=== PATIENT | male | born 1955 | race African-American/Black ===

== ENCOUNTER 2018-05-27 20:25 | Emergency (ER) | payer MEDICAID ==
[~2018-05-27] VITALS: Ht 180.3 cm; Wt 74.8 kg
[~2018-05-27 20:25] MED LIST: IBUPROFEN600 MG ORAL; NORCO 5-325 TA1 EACH ORAL; PENICILLIN V P500 MG PO
[2018-05-27 20:40] VITALS: BP 148/90
[2018-05-27] MEDS ORDERED: COLACE100 MG ORAL (20:50)
--- NOTE | 2018-05-27 20:53 | Emergency Room Report ---
History of Present Illness General Chief Complaint: General Complaint Source: Patient Present Illness HPI 62-year-old male presents with him and right inguinal area swelling, feels like it comes and goes and thinks it may be a hernia. He reports it hurts a little bit, but then when he goes waits fine, and it's triggered by heavy lifting or straining bowel movements. Denies nausea, diarrhea, urinary symptoms, such as hematuria or dysuria, fevers, any other complaints. He actually reports that is not bothering him currently. Allergies: Coded Allergies: No Known Allergies (Unverified , 03/17/15) Patient History Past Medical History: see triage record Reviewed Nursing Documentation: PMH: Agreed; PSxH: Agreed Nursing Documentation-PMH Past Medical History: No Stated History Review of Systems All Other Systems: negative except mentioned in HPI Physical Exam Vital Signs Date Time Temp Pulse Resp B/P (MAP) Pulse Ox O2 Delivery O2 Flow Rate FiO2 05/27/18 20:30 98.0 61 20 148/90 95 Room Air 98.1 Sp02 EP Interpretation: reviewed, normal General Appearance: no apparent distress, alert, non-toxic Head: normocephalic Eyes: bilateral eye normal inspection, bilateral eye PERRL, bilateral eye EOMI ENT: normal ENT inspection, hearing grossly normal, normal pharynx, no angioedema, normal voice, moist mucus membranes Neck: normal inspection, full range of motion, supple, supple/symm/no masses Respiratory: chest non-tender, lungs clear, normal breath sounds, chest symmetrical, palpation of chest normal Cardiovascular #1: normal peripheral pulses, regular rate, rhythm Cardiovascular #2: 2+ radial (R), 2+ radial (L) Gastrointestinal: normal inspection, non tender, soft, no mass, no guarding, no rebound Rectal: deferred Genitourinary: normal inspection, no CVA tenderness, penis normal, scrotum normal, other - No inguinal hernia Musculoskeletal: back normal, gait/station normal, normal range of motion, non- tender, no calf tenderness Neurologic: alert, responsive, roller printer III-XII nml as tested, motor strength/tone normal, sensory intact, speech normal Psychiatric: judgement/insight normal, memory normal, mood/affect normal Skin: normal color, no rash, warm/dry, normal turgor Lymphatic: no adenopathy, other - No inguinal lymphadenopathy Medical Decision Making Diagnostic Impression: Primary Impression: Hernia ER Course Patient with history consistent with inguinal hernia, but no hernia on examination today, patient currently asymptomatic as well. Given information on avoiding Valsalva maneuver when lifting, also instructed to eat more fiber and take stool softeners and consider getting a hernia belt. Instructed on how to reduce his own hernia and to return to the ER if severe pain or inability to reduce. Last Vital Signs Date Time Temp Pulse Resp B/P (MAP) Pulse Ox O2 Delivery O2 Flow Rate FiO2 05/27/18 20:30 98.0 61 20 148/90 95 Room Air 98.1 Disposition: HOME, SELF-CARE Condition: Stable Scripts Docusate Sodium* (COLACE*) 100 Mg Capsule 100 MG ORAL DAILY, #30 CAP Prov: RUDY MERRILL M.D 05/27/18 Patient Instructions: Inguinal Hernia, Adult, [id number] RUDY MERRILL M.D May 27, 2018 20:53
[2018-05-27 21:08] VITALS: BP 148/90
== END 2018-05-27 21:15 | disposition home or self-care (01) ==
LOC: EMR 21:08
DX: K40.90 Unilateral inguinal hernia, without obstruction or gangrene, not specified as recurrent (principal)
CPT/HCPCS: 99282

== ENCOUNTER 2020-04-22 14:22 | Inpatient (IN) | payer MEDICAID, MEDICARE ==
[~2020-04-22] VITALS: Ht 180.3 cm; Wt 71.0 kg
[~2020-04-22 14:22] MED LIST changes: +COLACE100 MG ORAL
[2020-04-22 15:00] VITALS: BP 121/76
[2020-04-22 15:12] LABS: APPEARANCE,URINE SLIGHTLY CLOUDY; COLOR,URINE YELLOW
[2020-04-22 15:13] LABS: BILIRUBIN, URINE NEGATIVE (NEGATIVE); GLUCOSE, URINE (UA) NEGATIVE (NEGATIVE); KETONES,URINE NEGATIVE (NEGATIVE); LEUKOCYTE ESTERASE ,URINE NEGATIVE (NEGATIVE); NITRITE,URINE NEGATIVE (NEGATIVE); PROTEIN,URINE 1+ (NEGATIVE); UROBILINOGEN,URINE NORMAL MG/DL (0.0-1.0)
[2020-04-22] MEDS ORDERED: Acetaminophen 500mg (ES) tab ORAL ONE (15:15)
--- NOTE | 2020-04-22 15:31 | Diagnostic Imaging Report ---
EXAM: XR Right Hand Complete, 3 or More Views CLINICAL HISTORY: PAIN TECHNIQUE: Frontal, lateral and oblique views of the right hand. COMPARISON: No relevant prior studies available. FINDINGS: Bones/joints: No acute fracture. Flexion of the second digit at the proximal interphalangeal joint. Degenerative changes. Soft tissues: No radiodense foreign body. IMPRESSION: No acute fracture.
[2020-04-22 15:53] LABS: ANION GAP 11 mmol/L (5-15); BLOOD UREA NITROGEN 23 mg/dL (7-18); CALCIUM 8.9 MG/DL (8.5-10.1); CARBON DIOXIDE 25 MMOL/L (21-32); CHLORIDE 102 MMOL/L (98-107); CREATININE 1.7 MG/DL (0.55-1.30); POTASSIUM 4.5 MMOL/L (3.5-5.1); SODIUM 138 MMOL/L (136-145)
[2020-04-22 15:58] LABS: ALANINE AMINOTRANSFERASE 15 U/L (12-78); ALBUMIN 3.3 G/DL (3.4-5.0); ALBUMIN/GLOBULIN RATIO 0.8 (1.0-2.7); ALKALINE PHOSPHATASE 97 U/L (46-116); ASPARTATE AMINO TRANSFERASE 24 U/L (15-37); BILIRUBIN,TOTAL 0.4 MG/DL (0.2-1.0)
[2020-04-22 15:59] LABS: BASOPHILS % (AUTO) 0.4 % (0.0-2.0); HEMATOCRIT 45.3 % (42.0-52.0); LYMPHOCYTES % (AUTO) 25.5 % (20.0-45.0); MEAN CORPUSCULAR VOLUME 92 FL (80-99); MONOCYTES % (AUTO) 4.8 % (1.0-10.0); NEUTROPHILS % (AUTO) 69.3 % (45.0-75.0); PLATELET COUNT 135 K/UL (150-450); RED BLOOD COUNT 4.93 M/UL (4.70-6.10); RED CELL DISTRIBUTION WIDTH 12.2 % (11.6-14.8); WHITE BLOOD COUNT 8.1 K/UL (4.8-10.8)
--- NOTE | 2020-04-22 17:12 | Diagnostic Imaging Report ---
EXAM: XR Chest, 1 View CLINICAL HISTORY: COUGH TECHNIQUE: Frontal view of the chest. COMPARISON: No relevant prior studies available. FINDINGS: Lungs: Patchy infiltrates, most apparent in the lower lung wright. Pleural space: Unremarkable. No pneumothorax. Heart: Large cardiac silhouette. Mediastinum: Unremarkable. Bones/joints: No acute fracture. Upper abdomen: Calcific foci in the right upper abdomen, largest measures approximately 5.7 cm. IMPRESSION: Patchy infiltrates, most apparent in the lower lung wright.
[2020-04-22] MEDS ORDERED: Azithromycin 500 MG in NS 275 ML IV ONE (17:30)
[2020-04-22] MEDS ORDERED: cefTRIAXone 1 GM in NS 55 ML IVPB ONE (17:30)
--- NOTE | 2020-04-22 18:09 | Emergency Room Report ---
History of Present Illness General Chief Complaint: Generalized Weakness Source: Patient Present Illness HPI 64-year-old male presents the ED for evaluation. States he has been feeling weak for the last week. States he is been having diarrhea. Denies nausea or vomiting. Denies chest pain. Denies fevers or chills. Denies cough. Denies sick contacts or recent travel. No other aggravating relieving factors. Denies any other associated symptoms Allergies: Coded Allergies: No Known Allergies (Unverified , 03/17/15) COVID-19 Screening Contact w/high risk pt: No Experienced COVID-19 symptoms?: No COVID-19 Testing performed POULTRY EVISCERATOR: No Patient History Past Medical History: none Past Surgical History: none Pertinent Family History: none Social History: Denies: smoking, alcohol use, drug use Immunizations: UTD Reviewed Nursing Documentation: PMH: Agreed; PSxH: Agreed Review of Systems All Other Systems: negative except mentioned in HPI Physical Exam Vital Signs Date Time Temp Pulse Resp B/P (MAP) Pulse Ox O2 Delivery O2 Flow Rate FiO2 04/22/20 14:36 99.9 57 16 124/69 (87) 94 Room Air Sp02 EP Interpretation: reviewed, normal General Appearance: no apparent distress, alert, GCS 15, non-toxic Head: normocephalic, atraumatic Eyes: bilateral eye normal inspection, bilateral eye PERRL ENT: hearing grossly normal, normal pharynx, no angioedema, normal voice Neck: full range of motion, supple/symm/no masses Respiratory: chest non-tender, lungs clear, normal breath sounds, speaking full sentences Cardiovascular #1: regular rate, rhythm, no edema Cardiovascular #2: 2+ carotid (R), 2+ carotid (L), 2+ radial (R), 2+ radial (L) , 2+ dorsalis pedis (R), 2+ dorsalis pedis (L) Gastrointestinal: normal bowel sounds, non tender, soft, non-distended, no guarding, no rebound Rectal: deferred Genitourinary: normal inspection, no CVA tenderness Musculoskeletal: back normal, normal range of motion, gait/station normal, non- tender Neurologic: alert, motor strength/tone normal, oriented x3, sensory intact, responsive, speech normal Psychiatric: judgement/insight normal, memory normal, mood/affect normal, no suicidal/homicidal ideation Reflexes: 3+ bicep (R), 3+ bicep (L), 3+ tricep (R), 3+ tricep (L), 3+ knee (R) , 3+ knee (L) Lymphatic: no adenopathy Medical Decision Making Diagnostic Impression: Primary Impression: Episode of generalized weakness Additional Impressions: COVID-19 ARF (acute renal failure) Qualified Codes: N17.9 - Acute kidney failure, unspecified Diarrhea Qualified Codes: R19.7 - Diarrhea, unspecified ER Course Hospital Course 64 yo M presents to ED c/o diarrhea and weakness Differential diagnoses include: Pneumonia, CHF exacerbation, pneumothorax, fluid overload Clinical course Patient placed on stretcher. 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 After initial history and physical, I ordered labs, IV fluids Labs - no leukocytosis, hemoglobin/hematocrit stable, BUN/Cr elevated COVID + Moved to isolation CXR - bilateral patchy opacities ESR CRP d-dimer coags sent and pending EKG - NSR, some PVCS noted Spectrum antibiotics given. Given IV fluids. Case discussed with Dr. Wing and he agreed to the patient to his service for further care and support I feel this is a highly complex case requiring extensive working including EKG/ Rhythm strip, Xray/CT/US, Blood/urine lab work, repeat exams while in ED, and administration of strong opiates/narcotics for pain control, admission to hospital or close patient follow up. Diagnosis - episode of generalized weakness, COVID-19, ARF, diarrhea Patient admitted to floor in serious condition Laboratory Tests Test 04/22/20 14:45 04/22/20 15:00 04/22/20 17:20 Urine Color Yellow Urine Appearance Slightly cloudy Urine pH 5.0 (4.5-8.0) Urine Specific [place] 1.020 (1.005-1.035) Urine Protein 1+ (NEGATIVE) H Urine Glucose (UA) Negative (NEGATIVE) Urine Ketones Negative (NEGATIVE) Urine Blood 1+ (NEGATIVE) H Urine Nitrite Negative (NEGATIVE) Urine Bilirubin Negative (NEGATIVE) Urine Urobilinogen Normal MG/DL (0.0-1.0) Urine Leukocyte Esterase Negative (NEGATIVE) Urine RBC 2-4 /HPF (0 - 0) H Urine WBC 2-4 /HPF (0 - 0) Urine Squamous Epithelial Cells Few /LPF (NONE/OCC) Urine Bacteria Few /HPF (NONE) White Blood Count 8.1 K/UL (4.8-10.8) Red Blood Count 4.93 M/UL (4.70-6.10) Hemoglobin 15.0 G/DL (14.2-18.0) Hematocrit 45.3 % (42.0-52.0) Mean Corpuscular Volume 92 FL (80-99) Mean Corpuscular Hemoglobin 30.4 PG (27.0-31.0) Mean Corpuscular Hemoglobin Concent 33.1 G/DL (32.0-36.0) Red Cell Distribution Width 12.2 % (11.6-14.8) Platelet Count 135 K/UL (150-450) L Mean Platelet Volume 9.9 FL (6.5-10.1) Neutrophils (%) (Auto) 69.3 % (45.0-75.0) Lymphocytes (%) (Auto) 25.5 % (20.0-45.0) Monocytes (%) (Auto) 4.8 % (1.0-10.0) Eosinophils (%) (Auto) 0.0 % (0.0-3.0) Basophils (%) (Auto) 0.4 % (0.0-2.0) Sodium Level 138 MMOL/L (136-145) Potassium Level 4.5 MMOL/L (3.5-5.1) Chloride Level 102 MMOL/L (98-107) Carbon Dioxide Level 25 MMOL/L (21-32) Anion Gap 11 mmol/L (5-15) Blood Urea Nitrogen 23 mg/dL (7-18) H Creatinine 1.7 MG/DL (0.55-1.30) H Estimat Glomerular Filtration Rate 49.1 mL/min (>60) Glucose Level 89 MG/DL (74-106) Calcium Level 8.9 MG/DL (8.5-10.1) Total Bilirubin 0.4 MG/DL (0.2-1.0) Aspartate Amino Transf (AST/SGOT) 24 U/L (15-37) Alanine Aminotransferase (ALT/SGPT) 15 U/L (12-78) Alkaline Phosphatase 97 U/L (46-116) Total Protein 7.2 G/DL (6.4-8.2) Albumin 3.3 G/DL (3.4-5.0) L Globulin 3.9 g/dL Albumin/Globulin Ratio 0.8 (1.0-2.7) L Lipase 238 U/L (73-393) Erythrocyte Sedimentation Rate Pending Prothrombin Time Pending Prothromb Time International Ratio Pending Activated Partial Thromboplast Time Pending D-Dimer Pending Lactic Acid Level Pending C-Reactive Protein, Quantitative Pending EKG Diagnostic Results Rate: normal Rhythm: NSR ST Segments: other - PVCs ASA given to the pt in ED: No Rhythm Strip Diag. Results EP Interpretation: yes Rhythm: NSR, other - PVCs Chest X-Ray Diagnostic Results Chest X-Ray Diagnostic Results : Chest X-Ray Ordered: Yes # of Views/Limited/Complete: 1 View Indication: Other EP Interpretation: Yes Interpretation: no pneumothorax, other - patchy opacities bilateral lungs Impression: Other - pneumonia vs covid Electronically Signed by: Electronically signed by Simeon Marc MD Last Vital Signs Date Time Temp Pulse Resp B/P (MAP) Pulse Ox O2 Delivery O2 Flow Rate FiO2 04/22/20 15:52 100.1 04/22/20 15:00 63 18 121/76 96 Room Air Status: improved Disposition: ADMITTED INPATIENT Condition: Serious Referrals: NOT CHOSEN IPA/,REFERRING (PCP) Simeon Marc MD Apr 22, 2020 18:09
[2020-04-22] MEDS ORDERED: DiphenhydrAMINE 50mg/ml Inj IVP PRN (19:30)
[2020-04-22 20:00] VITALS: BP 132/72
[2020-04-23] VITALS: BP 145/75
[2020-04-23 04:00] VITALS: BP 136/88
[2020-04-23 05:36] LABS: BASOPHILS % (AUTO) 0.3 % (0.0-2.0); HEMATOCRIT 41.2 % (42.0-52.0); HEMOGLOBIN 13.7 G/DL (14.2-18.0); LYMPHOCYTES % (AUTO) 28.9 % (20.0-45.0); MEAN CORPUSCULAR VOLUME 90 FL (80-99); MONOCYTES % (AUTO) 3.8 % (1.0-10.0); PLATELET COUNT 125 K/UL (150-450); RED BLOOD COUNT 4.56 M/UL (4.70-6.10); RED CELL DISTRIBUTION WIDTH 11.4 % (11.6-14.8); WHITE BLOOD COUNT 6.4 K/UL (4.8-10.8)
[2020-04-23 05:48] LABS: ANION GAP 10 mmol/L (5-15); BLOOD UREA NITROGEN 19 mg/dL (7-18); CALCIUM 7.8 MG/DL (8.5-10.1); CARBON DIOXIDE 24 MMOL/L (21-32); CHLORIDE 106 MMOL/L (98-107); CREATININE 1.6 MG/DL (0.55-1.30); POTASSIUM 4.2 MMOL/L (3.5-5.1); SODIUM 140 MMOL/L (136-145)
--- NOTE | 2020-04-23 07:28 | History and Physical ---
Ana Keller EMULSIFICATION OPERATOR 04/23/20 0728: History of Present Illness General Date patient seen: Apr 23, 2020 Time patient seen: 06:45 Reason for Hospitalization: Generalized Weakness Present Illness HPI 64 years old male with no significant past medical history , presented to emergency department for evaluation. Patient reported feeling weak for the last week. Patient reported having diarrhea. No blood in the stool. No nausea /vomiting. No abdominal pain. He denied chest pain or shortness of breath. He denied cough. No fever or chills. No recent sick contacts. reports using cocaine, last time a week ago. Upon evaluation patient had low-grade fever . Pulse oximetry was 94% on the room air . Chest x-ray revealed patchy infiltrate, more apparent in the lower lung wright. Laboratory work-up revealed no leukocytosis ,stable hemoglobin, hematocrit and platelet count . ESR 40. D-dimer 2.06. Chemistry revealed BUN 23, creatinine 1.7. Stable electrolytes. Lactic acid 1.1. Albumin 3.3. Stable LFT and lipase. Urinalysis revealed no evidence of urinary tract infection, +1 protein. Rapid COVID-19 was positive. X-ray of the right hand revealed no acute fracture. In emergency department patient received liter of fluid, received empiric azithromycin and ceftriaxone and admitted for further management. Allergies: Coded Allergies: No Known Allergies (Unverified , 03/17/15) COVID-19 Screening Contact w/high risk pt: No Recent Travel to affected area: No Experienced COVID-19 symptoms?: No Medication History Scheduled Docusate Sodium* (Colace*), 100 MG ORAL DAILY Penicillin V Potassium* (Penvk*), 500 MG PO Q6H Scheduled PRN Hydrocodone Bit/Acetaminophen 5-325* ([place] 5-325*), 1 TAB ORAL Q6H PRN for For Pain Ibuprofen (Motrin), 600 MG ORAL Q8H PRN for For Pain Patient History History Provided By: Patient Healthcare decision maker Resuscitation status Advanced Directive on File Review of Systems Constitutional: Reports: weakness Eye: Reports: no symptoms ENT: Reports: no symptoms Respiratory: Reports: no symptoms Cardiovascular: Reports: no symptoms Gastrointestinal: Reports: see HPI, diarrhea Genitourinary: Reports: no symptoms Musculoskeletal: Reports: no symptoms Skin: Reports: no symptoms Psychiatric: Reports: other - cocaine use , last time a week ago Endocrine: Reports: no symptoms Hematologic/Lymphatic: Reports: no symptoms Physical Exam General Appearance: no apparent distress, alert Lines, tubes and drains: peripheral HEENT: normocephalic, atraumatic, anicteric, mucous membranes moist Neck: supple Respiratory/Chest: chest wall non-tender, lungs clear, no respiratory distress , no accessory muscle use Cardiovascular/Chest: normal rate Abdomen: normal bowel sounds, non tender, soft Extremities: normal range of motion, no calf tenderness, normal capillary refill Skin Exam: normal pigmentation, warm/dry Neurologic: no motor/sensory deficits, alert, responsive Musculoskeletal: normal muscle bulk Last 24 Hour Vital Signs Date Time Temp Pulse Resp B/P (MAP) Pulse Ox O2 Delivery O2 Flow Rate FiO2 04/23/20 05:51 64 20 94 04/23/20 05:45 99.9 04/23/20 04:00 100.8 70 18 136/88 (104) 93 04/23/20 00:00 99.3 75 18 145/75 (98) 96 04/22/20 21:19 Room Air 04/22/20 20:00 98.1 71 18 132/72 (92) 96 04/22/20 18:50 99.9 64 18 126/71 97 Room Air 04/22/20 15:52 100.1 04/22/20 15:00 101.9 63 18 121/76 96 Room Air 04/22/20 15:00 63 16 Room Air 04/22/20 14:36 99.9 57 16 124/69 (87) 94 Room Air Intake and Output 04/22/20 04/23/20 19:00 07:00 Intake Total 1435 ml Output Total 800 ml Balance 635 ml Intake Oral 60 ml IV Total 1375 ml Output Urine Total 800 ml # Voids 1 # Bowel Movements 1 Laboratory Tests Test 04/22/20 14:45 04/22/20 15:00 04/22/20 17:20 04/22/20 20:13 Urine Color Yellow Urine Appearance Slightly cloudy Urine pH 5.0 (4.5-8.0) Urine Specific [place] 1.020 (1.005-1.035) Urine Protein 1+ (NEGATIVE) H Urine Glucose (UA) Negative (NEGATIVE) Urine Ketones Negative (NEGATIVE) Urine Blood 1+ (NEGATIVE) H Urine Nitrite Negative (NEGATIVE) Urine Bilirubin Negative (NEGATIVE) Urine Urobilinogen Normal MG/DL (0.0-1.0) Urine Leukocyte Esterase Negative (NEGATIVE) Urine RBC 2-4 /HPF (0 - 0) H Urine WBC 2-4 /HPF (0 - 0) Urine Squamous Epithelial Cells Few /LPF (NONE/OCC) Urine Bacteria Few /HPF (NONE) White Blood Count 8.1 K/UL (4.8-10.8) Red Blood Count 4.93 M/UL (4.70-6.10) Hemoglobin 15.0 G/DL (14.2-18.0) Hematocrit 45.3 % (42.0-52.0) Mean Corpuscular Volume 92 FL (80-99) Mean Corpuscular Hemoglobin 30.4 PG (27.0-31.0) Mean Corpuscular Hemoglobin Concent 33.1 G/DL (32.0-36.0) Red Cell Distribution Width 12.2 % (11.6-14.8) Platelet Count 135 K/UL (150-450) L Mean Platelet Volume 9.9 FL (6.5-10.1) Neutrophils (%) (Auto) 69.3 % (45.0-75.0) Lymphocytes (%) (Auto) 25.5 % (20.0-45.0) Monocytes (%) (Auto) 4.8 % (1.0-10.0) Eosinophils (%) (Auto) 0.0 % (0.0-3.0) Basophils (%) (Auto) 0.4 % (0.0-2.0) Sodium Level 138 MMOL/L (136-145) Potassium Level 4.5 MMOL/L (3.5-5.1) Chloride Level 102 MMOL/L (98-107) Carbon Dioxide Level 25 MMOL/L (21-32) Anion Gap 11 mmol/L (5-15) Blood Urea Nitrogen 23 mg/dL (7-18) H Creatinine 1.7 MG/DL (0.55-1.30) H Estimat Glomerular Filtration Rate 49.1 mL/min (>60) Glucose Level 89 MG/DL (74-106) Calcium Level 8.9 MG/DL (8.5-10.1) Total Bilirubin 0.4 MG/DL (0.2-1.0) Aspartate Amino Transf (AST/SGOT) 24 U/L (15-37) Alanine Aminotransferase (ALT/SGPT) 15 U/L (12-78) Alkaline Phosphatase 97 U/L (46-116) Total Protein 7.2 G/DL (6.4-8.2) Albumin 3.3 G/DL (3.4-5.0) L Globulin 3.9 g/dL Albumin/Globulin Ratio 0.8 (1.0-2.7) L Lipase 238 U/L (73-393) Erythrocyte Sedimentation Rate 40 MM/HR (0-20) H Prothrombin Time 11.0 SEC (9.30-11.50) Prothromb Time International Ratio 1.0 (0.9-1.1) Activated Partial Thromboplast Time 34 SEC (23-33) H D-Dimer 2.06 mg/L FEU (0.00-0.49) H Lactic Acid Level 1.10 mmol/L (0.4-2.0) Ferritin 499 NG/ML (8-388) H Lactate Dehydrogenase 349 U/L (81-234) H C-Reactive Protein, Quantitative 1.8 mg/dL (0.00-0.90) H Interleukin 6 (IL-6) Pending Thyroid Stimulating Hormone (TSH) 2.421 uiU/mL (0.358-3.740) Calcitonin Level Pending Test 04/22/20 22:32 04/23/20 04:40 Urine Random Sodium 156 mmol/L (20-110) H Urine Creatinine 108.5 MG/DL (30.0-125.0) White Blood Count 6.4 K/UL (4.8-10.8) Red Blood Count 4.56 M/UL (4.70-6.10) L Hemoglobin 13.7 G/DL (14.2-18.0) L Hematocrit 41.2 % (42.0-52.0) L Mean Corpuscular Volume 90 FL (80-99) Mean Corpuscular Hemoglobin 30.1 PG (27.0-31.0) Mean Corpuscular Hemoglobin Concent 33.3 G/DL (32.0-36.0) Red Cell Distribution Width 11.4 % (11.6-14.8) L Platelet Count 125 K/UL (150-450) L Mean Platelet Volume 8.2 FL (6.5-10.1) Neutrophils (%) (Auto) 67.0 % (45.0-75.0) Lymphocytes (%) (Auto) 28.9 % (20.0-45.0) Monocytes (%) (Auto) 3.8 % (1.0-10.0) Eosinophils (%) (Auto) 0.0 % (0.0-3.0) Basophils (%) (Auto) 0.3 % (0.0-2.0) Erythrocyte Sedimentation Rate 42 MM/HR (0-20) H Sodium Level 140 MMOL/L (136-145) Potassium Level 4.2 MMOL/L (3.5-5.1) Chloride Level 106 MMOL/L (98-107) Carbon Dioxide Level 24 MMOL/L (21-32) Anion Gap 10 mmol/L (5-15) Blood Urea Nitrogen 19 mg/dL (7-18) H Creatinine 1.6 MG/DL (0.55-1.30) H Estimat Glomerular Filtration Rate 52.7 mL/min (>60) Glucose Level 93 MG/DL (74-106) Calcium Level 7.8 MG/DL (8.5-10.1) L Microbiology Date/Time Source Procedure Growth Status 04/22/20 15:19 Nasopharynx SARS-CoV-2 RdRp Gene Assay - Final Complete Height (Feet): 5 Height (Inches): 11.00 Weight (Pounds): 165 Medications Current Medications Medications (Trade) Dose Ordered Sig/Dagmar Route PRN Reason Start Time Stop Time Status Last Admin Dose Admin Acetaminophen (Tylenol) 650 mg Q4H PRN ORAL Mild Pain (Pain Scale 1-3) 04/22/20 19:30 05/22/20 19:29 04/23/20 04:51 Diphenhydramine HCl (Benadryl) 25 mg Q6H PRN IVP Itching 04/22/20 19:30 05/22/20 19:29 Docusate Sodium (Colace) 100 mg TWICE A DAY ORAL 04/23/20 09:00 05/23/20 08:59 Enoxaparin Sodium (Lovenox) 40 mg DAILY SUBQ 04/23/20 09:00 07/22/20 08:59 Ondansetron HCl (Zofran) 4 mg Q6H PRN IVP Nausea & Vomiting 04/22/20 19:30 05/22/20 19:29 Sodium Chloride 1,000 ml @ 125 mls/hr Q8H IV 04/22/20 19:30 05/22/20 19:29 04/23/20 03:37 Assessment/Plan Assessment/Plan: ASSESSMENT COVID 19 infection ARF Diarrhea Generalized weakness Cocaine use PLAN OF CARE MS floor isolation supplemetnal O to keep sat >90% Albuterol MDI prn hold on abx for now: no resp symptoms, CXR changes likely due to COVID infection no steroids at this time needed f/ up with CXR CXR changes likely due to COVID infection, monitro for changes and progression ID eval and fup with ID recs re abx empiric abx add vit C and zinc DVT prophylaxis Venous Duplex BLE check IL-6. check inflammatory markers to access the risk of cytokine storm : LDH 349, ferritin 499, CRP 1.8 aggressive IVF renal US monitor renal parameters, lytes, correct lytes as needed avoid nephrotoxics nephro eval pending supportive care stool C dif if diarrhea persist consider Lactobacillus supportive care spiritual counselor on abstinence from illicit street drug case discussed and evaluated by supervising physician Edison Wing MD 04/23/20 1316: History of Present Illness General Reason for Hospitalization: Generalized Weakness Present Illness Allergies: Coded Allergies: No Known Allergies (Unverified , 03/17/15) Medication History Scheduled Docusate Sodium* (Colace*), 100 MG ORAL DAILY Penicillin V Potassium* (Penvk*), 500 MG PO Q6H Scheduled PRN Hydrocodone Bit/Acetaminophen 5-325* ([place] 5-325*), 1 TAB ORAL Q6H PRN for For Pain Ibuprofen (Motrin), 600 MG ORAL Q8H PRN for For Pain Assessment/Plan Assessment/Plan: Patient seen and examined with EMULSIFICATION OPERATOR. Agree with above A&P as it reflects our joint deliberations. COVID19 PNA +/- CAP Diarrhea MALCOM Elevated D-Dimer --> Abx per ID --> IVF --> Renal and GI eval --> Supportive care --> DVT Px: [facility] Ana Keller NP Apr 23, 2020 07:28 Edison Wing MD Apr 23, 2020 13:16
[2020-04-23 08:00] VITALS: BP 142/79
[2020-04-23 08:22] LABS: ALANINE AMINOTRANSFERASE 6 U/L (12-78); ALBUMIN 2.5 G/DL (3.4-5.0); ALKALINE PHOSPHATASE 83 U/L (46-116); ASPARTATE AMINO TRANSFERASE 21 U/L (15-37); BILIRUBIN,DIRECT < 0.1 MG/DL (0.0-0.3); BILIRUBIN,TOTAL 0.3 MG/DL (0.2-1.0); PHOSPHORUS 2.9 MG/DL (2.5-4.9)
[2020-04-23] MEDS: Tamsulosin 0.4mg cap ORAL SCH ×2 (08:23→17:18)
[2020-04-23] MEDS: Enoxaparin 40mg Inj SUBQ SCH (08:31)
[2020-04-23] MEDS ORDERED: Albuterol 90mcg Inhaler 8gm INH PRN (09:00)
[2020-04-23] MEDS ORDERED: Docusate 100mg cap ORAL SCH (09:00)
[2020-04-23] MEDS: Ascorbic Acid 500mg tab ORAL SCH ×2 (10:19→17:18)
[2020-04-23] MEDS: Zinc Sulfate 220mg ORAL SCH (10:19)
[2020-04-23 11:52] VITALS: BP 134/67
--- NOTE | 2020-04-23 11:59 | Consultation ---
Consult Note Consult Note I am asked to evaluate the patient at the request of Dr. Wing for management of renal failure and management of fluid and electrolytes Patient seen in room 415. Interviewed. Examined. Patient presents with generalized weakness. A 64-year old male, presented with diarrhea. Denies chest pain cough chills nausea vomiting abdominal pain After evaluation in emergency room the patient is being admitted for further management Serum creatinine on admission was 1.7 Allergies: No Known Allergies (Unverified , 03/17/15) COVID-19 Screening Contact w/high risk pt: No Experienced COVID-19 symptoms?: No COVID-19 Testing performed GETTER OPERATOR: No PHYSICAL EXAMINATION: VITAL SIGNS: Temperature 98.8, pulse rate 68, respiratory rate 21, blood pressure 149/73, saturation 97% on room air. T-max is 101.9. GENERAL: Alert, responsive. No distress. HEAD AND NECK: Oral exam, no thrush. Eye exam, no icterus. Normocephalic. Neck is supple. No JVD. HEART: Regular. No gallop or murmur. No friction rub. ABDOMEN: Soft. Positive bowel sounds. Nontender. No organomegaly. LUNGS: Few bilateral rhonchi and rales. SKIN: No rash or dermatitis. MUSCULOSKELETAL: No effusions. No septic arthritis. Lower extremities are without cellulitis. No dermatitis. PERIPHERAL VASCULAR: No gangrene or cyanosis. GENITOURINARY: No Meyer. No CVA tenderness. LINE SITES: Without phlebitis. NEUROLOGIC: Intact, nonfocal. Alert and oriented. LABORATORY DATA: Patient had creatinine 1.5. LFTs noted. White count 8.9, hemoglobin 13.4. Sed rate is 42. Ferritin is elevated at 456. UA, leukocyte esterase negative. Cultures are pending. Blood cultures were done. IMAGING STUDIES: Chest x-ray with bilateral infiltrates that have increased. COVID testing by nasopharyngeal molecular testing was positive. It was nucleic acid testing. . Assessment/Plan Impression: Acute renal failure, possible underlying chronic kidney failure Dehydration COVID-19 infection Lower lung patchy infiltrate Diarrhea Cocaine use Mild anemia Suggestions: Stop ibuprofen IV fluids Avoid nephrotoxic's Monitor renal parameters Per consultants / ID HIV screen Patient had 2 previous ER visits here at [facility]. I spent an additional 36 minutes on review of medical records including prior hospital records,consult notes, progress notes, procedures ,imaging labs, hemodynamics, and other clinical documentation. Over 35 min Nelson Dalal MD Apr 23, 2020 11:59
--- NOTE | 2020-04-23 12:56 | Infectious Diseases Prog Note ---
Assessment/Plan Assessment/Plan Full consult dictated: A) 1) covid-19 infection, pna, ? cap 2) pmh noted 3) allergies - nkda P) 1) ceftriaxone, azithromycin 2) monitor for hypoxia 3) f/u on labs and chest x-ray 4) thank you Subjective Allergies: Coded Allergies: No Known Allergies (Unverified , 03/17/15) Objective Last 24 Hour Vital Signs Date Time Temp Pulse Resp B/P (MAP) Pulse Ox O2 Delivery O2 Flow Rate FiO2 04/23/20 11:52 98.0 77 20 134/67 (89) 96 04/23/20 09:00 Room Air 04/23/20 08:00 98.8 62 20 142/79 (100) 96 04/23/20 05:51 64 20 94 04/23/20 05:45 99.9 04/23/20 04:00 100.8 70 18 136/88 (104) 93 04/23/20 00:00 99.3 75 18 145/75 (98) 96 04/22/20 21:19 Room Air 04/22/20 20:00 98.1 71 18 132/72 (92) 96 04/22/20 18:50 99.9 64 18 126/71 97 Room Air 04/22/20 15:52 100.1 04/22/20 15:00 101.9 63 18 121/76 96 Room Air 04/22/20 15:00 63 16 Room Air 04/22/20 14:36 99.9 57 16 124/69 (87) 94 Room Air Height (Feet): 5 Height (Inches): 11.00 Weight (Pounds): 165 Microbiology Date/Time Source Procedure Growth Status 04/22/20 15:19 Nasopharynx SARS-CoV-2 RdRp Gene Assay - Final Complete Laboratory Tests Test 04/22/20 14:45 04/22/20 15:00 04/22/20 17:20 04/22/20 20:13 Urine Color Yellow Urine Appearance Slightly cloudy Urine pH 5.0 (4.5-8.0) Urine Specific Innis 1.020 (1.005-1.035) Urine Protein 1+ (NEGATIVE) H Urine Glucose (UA) Negative (NEGATIVE) Urine Ketones Negative (NEGATIVE) Urine Blood 1+ (NEGATIVE) H Urine Nitrite Negative (NEGATIVE) Urine Bilirubin Negative (NEGATIVE) Urine Urobilinogen Normal MG/DL (0.0-1.0) Urine Leukocyte Esterase Negative (NEGATIVE) Urine RBC 2-4 /HPF (0 - 0) H Urine WBC 2-4 /HPF (0 - 0) Urine Squamous Epithelial Cells Few /LPF (NONE/OCC) Urine Bacteria Few /HPF (NONE) White Blood Count 8.1 K/UL (4.8-10.8) Red Blood Count 4.93 M/UL (4.70-6.10) Hemoglobin 15.0 G/DL (14.2-18.0) Hematocrit 45.3 % (42.0-52.0) Mean Corpuscular Volume 92 FL (80-99) Mean Corpuscular Hemoglobin 30.4 PG (27.0-31.0) Mean Corpuscular Hemoglobin Concent 33.1 G/DL (32.0-36.0) Red Cell Distribution Width 12.2 % (11.6-14.8) Platelet Count 135 K/UL (150-450) L Mean Platelet Volume 9.9 FL (6.5-10.1) Neutrophils (%) (Auto) 69.3 % (45.0-75.0) Lymphocytes (%) (Auto) 25.5 % (20.0-45.0) Monocytes (%) (Auto) 4.8 % (1.0-10.0) Eosinophils (%) (Auto) 0.0 % (0.0-3.0) Basophils (%) (Auto) 0.4 % (0.0-2.0) Sodium Level 138 MMOL/L (136-145) Potassium Level 4.5 MMOL/L (3.5-5.1) Chloride Level 102 MMOL/L (98-107) Carbon Dioxide Level 25 MMOL/L (21-32) Anion Gap 11 mmol/L (5-15) Blood Urea Nitrogen 23 mg/dL (7-18) H Creatinine 1.7 MG/DL (0.55-1.30) H Estimat Glomerular Filtration Rate 49.1 mL/min (>60) Glucose Level 89 MG/DL (74-106) Calcium Level 8.9 MG/DL (8.5-10.1) Total Bilirubin 0.4 MG/DL (0.2-1.0) Aspartate Amino Transf (AST/SGOT) 24 U/L (15-37) Alanine Aminotransferase (ALT/SGPT) 15 U/L (12-78) Alkaline Phosphatase 97 U/L (46-116) Total Protein 7.2 G/DL (6.4-8.2) Albumin 3.3 G/DL (3.4-5.0) L Globulin 3.9 g/dL Albumin/Globulin Ratio 0.8 (1.0-2.7) L Lipase 238 U/L (73-393) Erythrocyte Sedimentation Rate 40 MM/HR (0-20) H Prothrombin Time 11.0 SEC (9.30-11.50) Prothromb Time International Ratio 1.0 (0.9-1.1) Activated Partial Thromboplast Time 34 SEC (23-33) H D-Dimer 2.06 mg/L FEU (0.00-0.49) H Lactic Acid Level 1.10 mmol/L (0.4-2.0) Ferritin 499 NG/ML (8-388) H Lactate Dehydrogenase 349 U/L (81-234) H C-Reactive Protein, Quantitative 1.8 mg/dL (0.00-0.90) H Interleukin 6 (IL-6) Pending Thyroid Stimulating Hormone (TSH) 2.421 uiU/mL (0.358-3.740) Calcitonin Level Pending Test 04/22/20 22:32 04/23/20 04:40 04/23/20 04:44 Urine Random Sodium 156 mmol/L (20-110) H Urine Creatinine 108.5 MG/DL (30.0-125.0) White Blood Count 6.4 K/UL (4.8-10.8) Red Blood Count 4.56 M/UL (4.70-6.10) L Hemoglobin 13.7 G/DL (14.2-18.0) L Hematocrit 41.2 % (42.0-52.0) L Mean Corpuscular Volume 90 FL (80-99) Mean Corpuscular Hemoglobin 30.1 PG (27.0-31.0) Mean Corpuscular Hemoglobin Concent 33.3 G/DL (32.0-36.0) Red Cell Distribution Width 11.4 % (11.6-14.8) L Platelet Count 125 K/UL (150-450) L Mean Platelet Volume 8.2 FL (6.5-10.1) Neutrophils (%) (Auto) 67.0 % (45.0-75.0) Lymphocytes (%) (Auto) 28.9 % (20.0-45.0) Monocytes (%) (Auto) 3.8 % (1.0-10.0) Eosinophils (%) (Auto) 0.0 % (0.0-3.0) Basophils (%) (Auto) 0.3 % (0.0-2.0) Erythrocyte Sedimentation Rate 42 MM/HR (0-20) H Sodium Level 140 MMOL/L (136-145) Potassium Level 4.2 MMOL/L (3.5-5.1) Chloride Level 106 MMOL/L (98-107) Carbon Dioxide Level 24 MMOL/L (21-32) Anion Gap 10 mmol/L (5-15) Blood Urea Nitrogen 19 mg/dL (7-18) H Creatinine 1.6 MG/DL (0.55-1.30) H Estimat Glomerular Filtration Rate 52.7 mL/min (>60) Glucose Level 93 MG/DL (74-106) Calcium Level 7.8 MG/DL (8.5-10.1) L Phosphorus Level 2.9 MG/DL (2.5-4.9) Magnesium Level 2.0 MG/DL (1.8-2.4) Total Bilirubin 0.3 MG/DL (0.2-1.0) Direct Bilirubin < 0.1 MG/DL (0.0-0.3) Aspartate Amino Transf (AST/SGOT) 21 U/L (15-37) Alanine Aminotransferase (ALT/SGPT) 6 U/L (12-78) L Alkaline Phosphatase 83 U/L (46-116) Total Protein 6.3 G/DL (6.4-8.2) L Albumin 2.5 G/DL (3.4-5.0) L HIV (1&2) Antibody Rapid Pending Current Medications Medications (Trade) Dose Ordered Sig/Dagmar Route PRN Reason Start Time Stop Time Status Last Admin Dose Admin Acetaminophen (Tylenol) 650 mg Q4H PRN ORAL Mild Pain (Pain Scale 1-3) 04/22/20 19:30 05/22/20 19:29 04/23/20 04:51 Albuterol Sulfate (Proventil MDI) 2 puff Q4H PRN INH Shortness of Breath 04/23/20 09:00 07/22/20 08:59 Ascorbic Acid (Vitamin C) 500 mg TWICE A DAY ORAL 04/23/20 09:00 05/23/20 08:59 04/23/20 10:19 Azithromycin 250 mg/Dextrose 250 ml @ 250 mls/hr Q24HRS IVPB 04/23/20 13:00 04/28/20 12:59 UNV Ceftriaxone Sodium 1 gm/ Dextrose 50 ml @ 100 mls/hr Q24H IVPB 04/23/20 13:00 04/30/20 12:59 UNV Diphenhydramine HCl (Benadryl) 25 mg Q6H PRN IVP Itching 04/22/20 19:30 05/22/20 19:29 Enoxaparin Sodium (Lovenox) 40 mg DAILY SUBQ 04/23/20 09:00 07/22/20 08:59 04/23/20 08:31 Loperamide HCl (Imodium) 2 mg Q6H PRN NG Diarrhea 04/23/20 09:00 05/23/20 08:59 Ondansetron HCl (Zofran) 4 mg Q6H PRN IVP Nausea & Vomiting 04/22/20 19:30 05/22/20 19:29 Pantoprazole (Protonix) 40 mg EVERY 12 HOURS ORAL 04/23/20 21:00 05/23/20 20:59 UNV Sodium Chloride 1,000 ml @ 125 mls/hr Q8H IV 04/22/20 19:30 05/22/20 19:29 04/23/20 08:25 Tamsulosin HCl (Flomax) 0.4 mg BID ORAL 04/23/20 09:00 05/23/20 08:59 04/23/20 08:23 Zinc Sulfate (Zinc Sulfate) 220 mg DAILY ORAL 04/23/20 09:00 07/22/20 08:59 04/23/20 10:19 Kristie Hugo MD Apr 23, 2020 12:56
[2020-04-23] MEDS: cefTRIAXone 1 GM in D5W 50 ML IVPB SCH (14:24)
[2020-04-23 16:00] VITALS: BP 139/79
--- NOTE | 2020-04-23 16:15 | Consultation ---
DATE OF CONSULTATION: 04/23/2020 CONSULTING PHYSICIAN: Pramod Torres MD. CHIEF COMPLAINT: Diarrhea. HISTORY OF ILLNESS: A 64-year-old male without any significant past medical history, admitted to the hospital with complaint of feeling weak, started having diarrhea since admission. He has been diagnosed with COVID positive pneumonia. GI consultation is requested for evaluation of diarrhea. PAST MEDICAL HISTORY: None. ALLERGIES: None. MEDICATIONS: None. SOCIAL HISTORY: The patient denies any tobacco, alcohol, or drug abuse. FAMILY HISTORY: Noncontributory. REVIEW OF SYSTEMS: A 10-point review of systems was performed and pertinent positives are as in HPI. PHYSICAL EXAMINATION: VITAL SIGNS: T-max 100.8, T current 98.8, pulse is 60, respirations 20, blood pressure 142/79. HEENT: Normocephalic and atraumatic. Sclerae are anicteric. NECK: Supple. No evidence of obvious lymphadenopathy. CARDIOVASCULAR: Regular rate and rhythm. Plus S1, S2. LUNGS: Clear to auscultation bilaterally. ABDOMEN: Positive bowel sounds. Soft and nontender. No rebound. No guarding. No peritoneal sign. EXTREMITIES: No cyanosis, no clubbing, no edema. NEURO: Nonfocal. LABORATORY DATA: White count 6.4, hemoglobin 13.7, hematocrit 41, platelet count is 125. Sodium is 140, potassium 4.2, BUN is 19, creatinine is 1.6. Magnesium and phosphorus normal. ASSESSMENT AND PLAN: This is a 64-year-old male with COVID positive pneumonia and diarrhea, most probably secondary to COVID. PLAN: Conservative management. Monitor electrolytes. Consider adding Imodium if diarrhea persists. Management of COVID positive pneumonia per ID. We will also discontinue Colace, which is in order. Pramod Torres M.D. DR: TYREL JOB#: [id number] CC:
[2020-04-23 20:00] VITALS: BP 151/82
[2020-04-24 04:00] VITALS: BP 134/78
[2020-04-24 07:10] LABS: BASOPHILS % (AUTO) 0.7 % (0.0-2.0); HEMATOCRIT 39.5 % (42.0-52.0); HEMOGLOBIN 13.4 G/DL (14.2-18.0); LYMPHOCYTES % (AUTO) 17.5 % (20.0-45.0); MEAN CORPUSCULAR VOLUME 89 FL (80-99); MONOCYTES % (AUTO) 5.1 % (1.0-10.0); NEUTROPHILS % (AUTO) 76.7 % (45.0-75.0); PLATELET COUNT 143 K/UL (150-450); RED BLOOD COUNT 4.44 M/UL (4.70-6.10); RED CELL DISTRIBUTION WIDTH 11.4 % (11.6-14.8); WHITE BLOOD COUNT 8.9 K/UL (4.8-10.8)
[2020-04-24 08:00] VITALS: BP 138/74
[2020-04-24] MEDS: Enoxaparin 40mg Inj SUBQ SCH (08:00)
[2020-04-24] MEDS: Tamsulosin 0.4mg cap ORAL SCH ×2 (08:05→17:01)
[2020-04-24] MEDS: Ascorbic Acid 500mg tab ORAL SCH ×2 (08:05→17:01)
[2020-04-24 08:06] LABS: ALANINE AMINOTRANSFERASE 11 U/L (12-78); ALBUMIN 2.2 G/DL (3.4-5.0); ALBUMIN/GLOBULIN RATIO 0.6 (1.0-2.7); ALKALINE PHOSPHATASE 81 U/L (46-116); ANION GAP 12 mmol/L (5-15); ASPARTATE AMINO TRANSFERASE 14 U/L (15-37); BILIRUBIN,TOTAL 0.4 MG/DL (0.2-1.0); BLOOD UREA NITROGEN 16 mg/dL (7-18); CARBON DIOXIDE 22 MMOL/L (21-32); CHLORIDE 105 MMOL/L (98-107); CHOLESTEROL 112 MG/DL (< 200); CREATINE KINASE 48 U/L (26-308); CREATININE 1.5 MG/DL (0.55-1.30); FERRITIN 456 NG/ML (8-388); GAMMA GLUTAMYL TRANSPEPTIDASE 8 U/L (5-85); HDL CHOLESTEROL 31 MG/DL (40-60); LACTATE DEHYDROGENASE 252 U/L (81-234); PHOSPHORUS 3.2 MG/DL (2.5-4.9); POTASSIUM 3.9 MMOL/L (3.5-5.1); SODIUM 139 MMOL/L (136-145); TRIGLYCERIDES 131 MG/DL (30-150)
[2020-04-24] MEDS: Zinc Sulfate 220mg ORAL SCH (08:06)
[2020-04-24 08:40] LABS: % IRON SATURATION 14 % (15-50); IRON 17 ug/dL (50-175); TOTAL IRON BINDING CAPACITY 124 ug/dL (250-450)
--- NOTE | 2020-04-24 10:29 | Pulmonology Progress Note ---
Ana Keller COMMISSIONING SPECIALIST 04/24/20 1029: Subjective Allergies: Coded Allergies: No Known Allergies (Unverified , 03/17/15) Subjective remains afebrile no resp distress pulse ox stable on RA in isolation room creat down to 1.5 denies CP, SOB diarrhea improved Objective Last 24 Hour Vital Signs Date Time Temp Pulse Resp B/P (MAP) Pulse Ox O2 Delivery O2 Flow Rate FiO2 04/24/20 09:00 Room Air 04/24/20 08:00 99.0 62 21 138/74 (95) 95 04/24/20 04:00 99.9 76 20 134/78 (96) 96 04/23/20 21:13 Room Air 04/23/20 20:00 99.8 72 20 151/82 (105) 94 04/23/20 16:00 98.0 74 20 139/79 (99) 96 04/23/20 11:52 98.0 77 20 134/67 (89) 96 Intake and Output 04/23/20 04/24/20 19:00 07:00 Intake Total 1830 ml 2175 ml Output Total 500 ml 1600 ml Balance 1330 ml 575 ml Intake Oral 480 ml 800 ml IV Total 1350 ml 1375 ml Output Urine Total 500 ml 1600 ml # Voids 2 Objective General Appearance: no apparent distress, alert Lines, tubes and drains: peripheral HEENT: normocephalic, atraumatic, anicteric, mucous membranes moist Neck: supple Respiratory/Chest: chest wall non-tender, lungs clear, no respiratory distress , no accessory muscle use Cardiovascular/Chest: normal rate Abdomen: normal bowel sounds, non tender, soft Extremities: normal range of motion, no calf tenderness, normal capillary refill Skin Exam: normal pigmentation, warm/dry Neurologic: no motor/sensory deficits, alert, responsive Musculoskeletal: normal muscle bulk Microbiology Date/Time Source Procedure Growth Status 04/22/20 17:20 Blood Blood Culture - Preliminary NO GROWTH AFTER 24 HOURS Resulted 04/22/20 17:05 Blood Blood Culture - Preliminary NO GROWTH AFTER 24 HOURS Resulted 04/22/20 15:19 Nasopharynx SARS-CoV-2 RdRp Gene Assay - Final Complete Laboratory Tests 04/23/20 15:30: Urine Opiates Screen Negative, Urine Barbiturates Screen Negative, Phencyclidine (PCP) Screen Negative, Urine Amphetamines Screen Negative, Urine Benzodiazepines Screen Negative, Urine Cocaine Screen PositiveH, Urine Marijuana (THC) Screen Negative 04/24/20 06:00: White Blood Count 8.9, Red Blood Count 4.44L, Hemoglobin 13.4L, Hematocrit 39.5L , Mean Corpuscular Volume 89, Mean Corpuscular Hemoglobin 30.2, Mean Corpuscular Hemoglobin Concent 33.9, Red Cell Distribution Width 11.4L, Platelet Count 143L, Mean Platelet Volume 7.6, Neutrophils (%) (Auto) 76.7H, Lymphocytes (%) (Auto) 17.5L, Monocytes (%) (Auto) 5.1, Eosinophils (%) (Auto) 0.0, Basophils (%) (Auto) 0.7, Sodium Level 139, Potassium Level 3.9, Chloride Level 105, Carbon Dioxide Level 22, Anion Gap 12, Blood Urea Nitrogen 16, Creatinine 1.5H, Estimat Glomerular Filtration Rate 56.7, Glucose Level 92, Hemoglobin A1c 5.3, Lactic Acid Level 0.70, Uric Acid 3.5, Calcium Level 8.0L, Phosphorus Level 3.2, Magnesium Level 2.0, Iron Level 17L, Total Iron Binding Capacity 124L, Percent Iron Saturation 14L, Unsaturated Iron Binding 107L, Ferritin 456H, Total Bilirubin 0.4, Gamma Glutamyl Transpeptidase 8, Aspartate Amino Transf (AST/SGOT) 14L, Alanine Aminotransferase (ALT/SGPT) 11L, Alkaline Phosphatase 81, Lactate Dehydrogenase 252H, Total Creatine Kinase 48, C- Reactive Protein, Quantitative 3.8H, Pro-B-Type Natriuretic Peptide 953H, Total Protein 6.0L, Albumin 2.2L, Globulin 3.8, Albumin/Globulin Ratio 0.6L, Triglycerides Level 131, Cholesterol Level 112, LDL Cholesterol 53, HDL Cholesterol 31L, Cholesterol/HDL Ratio 3.6, Folate 17.3, Thyroid Stimulating Hormone (TSH) 2.337 Current Medications Medications (Trade) Dose Ordered Sig/Dagmar Route PRN Reason Start Time Stop Time Status Last Admin Dose Admin Acetaminophen (Tylenol) 650 mg Q4H PRN ORAL Mild Pain (Pain Scale 1-3) 04/22/20 19:30 05/22/20 19:29 04/23/20 04:51 Albuterol Sulfate (Proventil MDI) 2 puff Q4H PRN INH Shortness of Breath 04/23/20 09:00 07/22/20 08:59 Ascorbic Acid (Vitamin C) 500 mg TWICE A DAY ORAL 04/23/20 09:00 05/23/20 08:59 04/24/20 08:05 Azithromycin 250 mg/Dextrose 250 ml @ 250 mls/hr Q24HRS IV 04/23/20 16:00 04/28/20 15:59 04/23/20 16:05 Ceftriaxone Sodium 1 gm/ Dextrose 50 ml @ 100 mls/hr Q24H IVPB 04/23/20 14:00 04/30/20 13:59 04/23/20 14:24 Diphenhydramine HCl (Benadryl) 25 mg Q6H PRN IVP Itching 04/22/20 19:30 05/22/20 19:29 Enoxaparin Sodium (Lovenox) 40 mg DAILY SUBQ 04/23/20 09:00 07/22/20 08:59 04/23/20 08:31 Loperamide HCl (Imodium) 2 mg Q6H PRN NG Diarrhea 04/23/20 09:00 05/23/20 08:59 Ondansetron HCl (Zofran) 4 mg Q6H PRN IVP Nausea & Vomiting 04/22/20 19:30 05/22/20 19:29 Pantoprazole (Protonix) 40 mg EVERY 12 HOURS ORAL 04/23/20 21:00 05/23/20 20:59 04/24/20 08:05 Sodium Chloride 1,000 ml @ 125 mls/hr Q8H IV 04/22/20 19:30 05/22/20 19:29 04/24/20 05:15 Tamsulosin HCl (Flomax) 0.4 mg BID ORAL 04/23/20 09:00 05/23/20 08:59 04/24/20 08:05 Zinc Sulfate (Zinc Sulfate) 220 mg DAILY ORAL 04/23/20 09:00 07/22/20 08:59 04/24/20 08:06 Assessment/Plan Assessment/Plan ASSESSMENT COVID 19 PNA ARF possibly on CKD Diarrhea Generalized weakness Cocaine abuse PLAN OF CARE MS floor isolation supplemetnal O to keep sat >90% Albuterol MDI prn started on abx per ID recs-> Ceftriaxone and Azithromycin no steroids at this time needed CXR changes likely due to COVID infection, monitor for changes and progression fup with CXR vit C and zinc added DVT prophylaxis Venous Duplex BLE check IL-6 pending inflammatory markers not quite impressive to show risk for cytokine storm: ferritin 456, CRP 3.8, LDH 252, D dimer 2.06 IVF renal US monitor renal parameters, lytes, correct lytes as needed avoid nephrotoxics nephro follows creat down to 1.5 diarrhea improved with Imodium stool C dif if diarrhea persist consider Lactobacillus HIV nonreactive urine tox + 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 Agree with above A&P as it reflects our joint deliberations. Problem List: COVID19 PNA +/- CAP Diarrhea MALCOM Elevated D-Dimer Plan: * Monitor oxygenation closely, currently room air * hold remdesivir/decadron while tolerating room air * trend CRP and ferritin daily * abx per ID * IVF, monitor renal function * DVT PPx: LMWH Ana Keller NP Apr 24, 2020 10:29 Rasta Sutherland MD Apr 24, 2020 11:08
--- NOTE | 2020-04-24 10:39 | General Progress Note ---
Assessment/Plan Problem List: (1) Cocaine abuse ICD Codes: F14.10 - Cocaine abuse, uncomplicated SNOMED: 27376200 (2) COVID-19 ICD Codes: U07.1 - COVID-19 SNOMED: 060371111 (3) Diarrhea ICD Codes: R19.7 - Diarrhea, unspecified SNOMED: 56409392 Qualifiers: Qualified Codes: R19.7 - Diarrhea, unspecified Assessment/Plan: pulm care good response to imodium fu labs Subjective ROS Limited/Unobtainable: Yes Allergies: Coded Allergies: No Known Allergies (Unverified , 03/17/15) Objective Last 24 Hour Vital Signs Date Time Temp Pulse Resp B/P (MAP) Pulse Ox O2 Delivery O2 Flow Rate FiO2 04/24/20 09:00 Room Air 04/24/20 08:00 99.0 62 21 138/74 (95) 95 04/24/20 04:00 99.9 76 20 134/78 (96) 96 04/23/20 21:13 Room Air 04/23/20 20:00 99.8 72 20 151/82 (105) 94 04/23/20 16:00 98.0 74 20 139/79 (99) 96 04/23/20 11:52 98.0 77 20 134/67 (89) 96 Intake and Output 04/23/20 04/24/20 19:00 07:00 Intake Total 1830 ml 2175 ml Output Total 500 ml 1600 ml Balance 1330 ml 575 ml Intake Oral 480 ml 800 ml IV Total 1350 ml 1375 ml Output Urine Total 500 ml 1600 ml # Voids 2 Laboratory Tests 04/23/20 15:30: Urine Opiates Screen Negative, Urine Barbiturates Screen Negative, Phencyclidine (PCP) Screen Negative, Urine Amphetamines Screen Negative, Urine Benzodiazepines Screen Negative, Urine Cocaine Screen PositiveH, Urine Marijuana (THC) Screen Negative 04/24/20 06:00: White Blood Count 8.9, Red Blood Count 4.44L, Hemoglobin 13.4L, Hematocrit 39.5L , Mean Corpuscular Volume 89, Mean Corpuscular Hemoglobin 30.2, Mean Corpuscular Hemoglobin Concent 33.9, Red Cell Distribution Width 11.4L, Platelet Count 143L, Mean Platelet Volume 7.6, Neutrophils (%) (Auto) 76.7H, Lymphocytes (%) (Auto) 17.5L, Monocytes (%) (Auto) 5.1, Eosinophils (%) (Auto) 0.0, Basophils (%) (Auto) 0.7, Sodium Level 139, Potassium Level 3.9, Chloride Level 105, Carbon Dioxide Level 22, Anion Gap 12, Blood Urea Nitrogen 16, Creatinine 1.5H, Estimat Glomerular Filtration Rate 56.7, Glucose Level 92, Hemoglobin A1c 5.3, Lactic Acid Level 0.70, Uric Acid 3.5, Calcium Level 8.0L, Phosphorus Level 3.2, Magnesium Level 2.0, Iron Level 17L, Total Iron Binding Capacity 124L, Percent Iron Saturation 14L, Unsaturated Iron Binding 107L, Ferritin 456H, Total Bilirubin 0.4, Gamma Glutamyl Transpeptidase 8, Aspartate Amino Transf (AST/SGOT) 14L, Alanine Aminotransferase (ALT/SGPT) 11L, Alkaline Phosphatase 81, Lactate Dehydrogenase 252H, Total Creatine Kinase 48, C- Reactive Protein, Quantitative 3.8H, Pro-B-Type Natriuretic Peptide 953H, Total Protein 6.0L, Albumin 2.2L, Globulin 3.8, Albumin/Globulin Ratio 0.6L, Triglycerides Level 131, Cholesterol Level 112, LDL Cholesterol 53, HDL Cholesterol 31L, Cholesterol/HDL Ratio 3.6, Folate 17.3, Thyroid Stimulating Hormone (TSH) 2.337 Height (Feet): 5 Height (Inches): 11.00 Weight (Pounds): 165 General Appearance: alert EENT: normal ENT inspection Neck: supple Cardiovascular: normal rate Respiratory/Chest: decreased breath sounds Abdomen: normal bowel sounds, non tender, soft Extremities: non-tender Pramod Torres MD Apr 24, 2020 10:39
--- NOTE | 2020-04-24 11:57 | Diagnostic Imaging Report ---
Indication: Shortness of breath Technique: One view of the chest Comparison: 04/22/2020 Findings: Bilateral mid and lower lung infiltrates appear somewhat more conspicuous on the current study, probably slightly increased. The heart size is normal. Impression: Increased bilateral infiltrates, over 2 days
[2020-04-24 12:00] VITALS: BP 149/73
--- NOTE | 2020-04-24 12:46 | Consultation ---
History of Present Illness General Date patient seen: Apr 24, 2020 Reason for Hospitalization: Generalized Weakness Present Illness HPI 64 year old male presented to [facility] for evaluation of weakness and diarrhea. c/o loose diarrhea for few days. no n/v/f/c. COVID + in ED. hx hernia. surgery called toe valuate and assist with care. patient seen, chart reviewed, patient examined. states hernia asymptomatic. feels better now. labs noted. imaging reviewed. Allergies: Coded Allergies: No Known Allergies (Unverified , 03/17/15) COVID-19 Screening Contact w/high risk pt: No Recent Travel to affected area: No Experienced COVID-19 symptoms?: No Medication History Scheduled Docusate Sodium* (Colace*), 100 MG ORAL DAILY Penicillin V Potassium* (Penvk*), 500 MG PO Q6H Scheduled PRN Hydrocodone Bit/Acetaminophen 5-325* ([place] 5-325*), 1 TAB ORAL Q6H PRN for For Pain Ibuprofen (Motrin), 600 MG ORAL Q8H PRN for For Pain Patient History History Provided By: Patient, Medical Record, PMD Healthcare decision maker Resuscitation status Advanced Directive on File Past Medical/Surgical History Past Medical/Surgical History: (1) Dental abscess (2) Dental abscess (3) Hernia (4) ARF (acute renal failure) (5) Episode of generalized weakness (6) MALCOM (acute kidney injury) (7) Cocaine abuse (8) Diarrhea (9) COVID-19 Review of Systems Review of Symptoms General ROS: no weight loss or fever Psychological ROS: no depression or mood changes, no memory loss Ophthalmic ROS: no visual changes or eye irritation ENT ROS: no nasal congestion, hearing loss, dizziness Allergy and Immunology ROS: no allergic symptoms or urticaria Hematological and Lymphatic ROS: no swollen glands, unusual bleeding or bruising Endocrine ROS: no polyuria, polydipsia, weight changes, temperature intolerance Respiratory ROS: no cough, shortness of breath, or wheezing Cardiovascular ROS: no chest pain or dyspnea on exertion Gastrointestinal ROS: denies abdominal pain, bright red blood in stool. Musculoskeletal ROS: no myalgias or arthralgias Neurological ROS: no TIA or stroke symptoms Dermatological ROS: no new or changing skin lesions, rashes or pruritis Physical Exam Physical Exam General appearance: alert, cooperative, no distress, appears stated age Head: Normocephalic, without obvious abnormality, atraumatic Eyes: conjunctivae/corneas clear. PERRL, EOM's intact. Fundi benign Throat: Lips, mucosa, and tongue normal. Teeth and gums normal Neck: supple, symmetrical, trachea midline, no adenopathy, thyroid: not enlarged, symmetric, no tenderness/mass/nodules, no carotid bruit and no JVD Lungs: clear to auscultation bilaterally Heart: regular rate and rhythm, S1, S2 normal, no murmur, click, rub or gallop Abdomen: soft, non-tender. Bowel sounds normal. No masses, no organomegaly Extremities: extremities normal, atraumatic, no cyanosis or edema Pulses: 2+ and symmetric Skin: Skin color, texture, turgor normal. No rashes or lesions Neurologic: Grossly normal Last 24 Hour Vital Signs Date Time Temp Pulse Resp B/P (MAP) Pulse Ox O2 Delivery O2 Flow Rate FiO2 04/24/20 12:00 98.8 68 21 149/73 (98) 97 04/24/20 09:00 Room Air 04/24/20 08:00 99.0 62 21 138/74 (95) 95 04/24/20 04:00 99.9 76 20 134/78 (96) 96 04/23/20 21:13 Room Air 04/23/20 20:00 99.8 72 20 151/82 (105) 94 04/23/20 16:00 98.0 74 20 139/79 (99) 96 Intake and Output 04/23/20 04/24/20 19:00 07:00 Intake Total 1830 ml 2175 ml Output Total 500 ml 1600 ml Balance 1330 ml 575 ml Intake Oral 480 ml 800 ml IV Total 1350 ml 1375 ml Output Urine Total 500 ml 1600 ml # Voids 2 Laboratory Tests Test 04/23/20 15:30 04/24/20 06:00 Urine Opiates Screen Negative (NEGATIVE) Urine Barbiturates Screen Negative (NEGATIVE) Phencyclidine (PCP) Screen Negative (NEGATIVE) Urine Amphetamines Screen Negative (NEGATIVE) Urine Benzodiazepines Screen Negative (NEGATIVE) Urine Cocaine Screen Positive (NEGATIVE) H Urine Marijuana (THC) Screen Negative (NEGATIVE) White Blood Count 8.9 K/UL (4.8-10.8) Red Blood Count 4.44 M/UL (4.70-6.10) L Hemoglobin 13.4 G/DL (14.2-18.0) L Hematocrit 39.5 % (42.0-52.0) L Mean Corpuscular Volume 89 FL (80-99) Mean Corpuscular Hemoglobin 30.2 PG (27.0-31.0) Mean Corpuscular Hemoglobin Concent 33.9 G/DL (32.0-36.0) Red Cell Distribution Width 11.4 % (11.6-14.8) L Platelet Count 143 K/UL (150-450) L Mean Platelet Volume 7.6 FL (6.5-10.1) Neutrophils (%) (Auto) 76.7 % (45.0-75.0) H Lymphocytes (%) (Auto) 17.5 % (20.0-45.0) L Monocytes (%) (Auto) 5.1 % (1.0-10.0) Eosinophils (%) (Auto) 0.0 % (0.0-3.0) Basophils (%) (Auto) 0.7 % (0.0-2.0) Sodium Level 139 MMOL/L (136-145) Potassium Level 3.9 MMOL/L (3.5-5.1) Chloride Level 105 MMOL/L (98-107) Carbon Dioxide Level 22 MMOL/L (21-32) Anion Gap 12 mmol/L (5-15) Blood Urea Nitrogen 16 mg/dL (7-18) Creatinine 1.5 MG/DL (0.55-1.30) H Estimat Glomerular Filtration Rate 56.7 mL/min (>60) Glucose Level 92 MG/DL (74-106) Hemoglobin A1c 5.3 % (4.3-6.0) Lactic Acid Level 0.70 mmol/L (0.4-2.0) Uric Acid 3.5 MG/DL (2.6-7.2) Calcium Level 8.0 MG/DL (8.5-10.1) L Phosphorus Level 3.2 MG/DL (2.5-4.9) Magnesium Level 2.0 MG/DL (1.8-2.4) Iron Level 17 ug/dL (50-175) L Total Iron Binding Capacity 124 ug/dL (250-450) L Percent Iron Saturation 14 % (15-50) L Unsaturated Iron Binding 107 ug/dL (112-346) L Ferritin 456 NG/ML (8-388) H Total Bilirubin 0.4 MG/DL (0.2-1.0) Gamma Glutamyl Transpeptidase 8 U/L (5-85) Aspartate Amino Transf (AST/SGOT) 14 U/L (15-37) L Alanine Aminotransferase (ALT/SGPT) 11 U/L (12-78) L Alkaline Phosphatase 81 U/L (46-116) Lactate Dehydrogenase 252 U/L (81-234) H Total Creatine Kinase 48 U/L (26-308) C-Reactive Protein, Quantitative 3.8 mg/dL (0.00-0.90) H Pro-B-Type Natriuretic Peptide 953 pg/mL (0-125) H Total Protein 6.0 G/DL (6.4-8.2) L Albumin 2.2 G/DL (3.4-5.0) L Globulin 3.8 g/dL Albumin/Globulin Ratio 0.6 (1.0-2.7) L Triglycerides Level 131 MG/DL (30-150) Cholesterol Level 112 MG/DL (< 200) LDL Cholesterol 53 mg/dL (<100) HDL Cholesterol 31 MG/DL (40-60) L Cholesterol/HDL Ratio 3.6 (3.3-4.4) Folate 17.3 NG/ML (8.6-58.9) Thyroid Stimulating Hormone (TSH) 2.337 uiU/mL (0.358-3.740) Height (Feet): 5 Height (Inches): 11.00 Weight (Pounds): 165 Medications Current Medications Medications (Trade) Dose Ordered Sig/Dagmar Route PRN Reason Start Time Stop Time Status Last Admin Dose Admin Acetaminophen (Tylenol) 650 mg Q4H PRN ORAL Mild Pain (Pain Scale 1-3) 04/22/20 19:30 05/22/20 19:29 04/23/20 04:51 Albuterol Sulfate (Proventil MDI) 2 puff Q4H PRN INH Shortness of Breath 04/23/20 09:00 07/22/20 08:59 Ascorbic Acid (Vitamin C) 500 mg TWICE A DAY ORAL 04/23/20 09:00 05/23/20 08:59 04/24/20 08:05 Azithromycin 250 mg/Dextrose 250 ml @ 250 mls/hr Q24HRS IV 04/23/20 16:00 04/28/20 15:59 04/23/20 16:05 Ceftriaxone Sodium 1 gm/ Dextrose 50 ml @ 100 mls/hr Q24H IVPB 04/23/20 14:00 04/30/20 13:59 04/23/20 14:24 Diphenhydramine HCl (Benadryl) 25 mg Q6H PRN IVP Itching 04/22/20 19:30 05/22/20 19:29 Enoxaparin Sodium (Lovenox) 40 mg DAILY SUBQ 04/23/20 09:00 07/22/20 08:59 04/23/20 08:31 Loperamide HCl (Imodium) 2 mg Q6H PRN NG Diarrhea 04/23/20 09:00 05/23/20 08:59 Ondansetron HCl (Zofran) 4 mg Q6H PRN IVP Nausea & Vomiting 04/22/20 19:30 05/22/20 19:29 Pantoprazole (Protonix) 40 mg EVERY 12 HOURS ORAL 04/23/20 21:00 05/23/20 20:59 04/24/20 08:05 Sodium Chloride 1,000 ml @ 125 mls/hr Q8H IV 04/22/20 19:30 05/22/20 19:29 04/24/20 10:55 Tamsulosin HCl (Flomax) 0.4 mg BID ORAL 04/23/20 09:00 05/23/20 08:59 04/24/20 08:05 Zinc Sulfate (Zinc Sulfate) 220 mg DAILY ORAL 04/23/20 09:00 07/22/20 08:59 04/24/20 08:06 Assessment/Plan Problem List: (1) ARF (acute renal failure) ICD Codes: N17.9 - Acute kidney failure, unspecified SNOMED: 22399689 Qualifiers: Qualified Codes: N17.9 - Acute kidney failure, unspecified (2) Episode of generalized weakness ICD Codes: R53.1 - Weakness SNOMED: 69442043 (3) Cocaine abuse ICD Codes: F14.10 - Cocaine abuse, uncomplicated SNOMED: 23078762 (4) Diarrhea Assessment & Plan: 64M diarrhea improving okay for diet exam stable no acute surgical intervention at this time kub ordered thank you ICD Codes: R19.7 - Diarrhea, unspecified SNOMED: 89766406 Qualifiers: Qualified Codes: R19.7 - Diarrhea, unspecified (5) COVID-19 Assessment & Plan: + appreciate ID input ICD Codes: U07.1 - COVID-19 SNOMED: 787927163 (6) Dental abscess ICD Codes: K04.7 - Periapical abscess without sinus SNOMED: 355410476 (7) Dental abscess ICD Codes: K04.7 - Periapical abscess without sinus SNOMED: 950249526 (8) Hernia ICD Codes: K46.9 - Unspecified abdominal hernia without obstruction or gangrene SNOMED: 70018727 (9) MALCOM (acute kidney injury) ICD Codes: N17.9 - Acute kidney failure, unspecified SNOMED: 5267034, [id number] Jose Delgadillo Apr 24, 2020 12:46
--- NOTE | 2020-04-24 13:16 | Nephrology Progress Note ---
Assessment/Plan Problem List: (1) MALCOM (acute kidney injury) (2) COVID-19 (3) Diarrhea (4) Cocaine abuse Assessment Acute renal failure, possible underlying chronic kidney failure Dehydration COVID-19 infection Lower lung patchy infiltrate Diarrhea Cocaine use Mild anemia Plan April 24: Serum creatinine is down to 1.5. Urine positive for cocaine. Continue per consultants. April 23: Stop ibuprofen IV fluids Avoid nephrotoxic's Monitor renal parameters Per consultants / ID HIV screen Objective Objective Last 24 Hour Vital Signs Date Time Temp Pulse Resp B/P (MAP) Pulse Ox O2 Delivery O2 Flow Rate FiO2 04/24/20 12:00 98.8 68 21 149/73 (98) 97 04/24/20 09:00 Room Air 04/24/20 08:00 99.0 62 21 138/74 (95) 95 04/24/20 04:00 99.9 76 20 134/78 (96) 96 04/23/20 21:13 Room Air 04/23/20 20:00 99.8 72 20 151/82 (105) 94 04/23/20 16:00 98.0 74 20 139/79 (99) 96 Intake and Output 04/23/20 04/24/20 19:00 07:00 Intake Total 1830 ml 2175 ml Output Total 500 ml 1600 ml Balance 1330 ml 575 ml Intake Oral 480 ml 800 ml IV Total 1350 ml 1375 ml Output Urine Total 500 ml 1600 ml # Voids 2 Laboratory Tests 04/23/20 15:30: Urine Opiates Screen Negative, Urine Barbiturates Screen Negative, Phencyclidine (PCP) Screen Negative, Urine Amphetamines Screen Negative, Urine Benzodiazepines Screen Negative, Urine Cocaine Screen PositiveH, Urine Marijuana (THC) Screen Negative 04/24/20 06:00: White Blood Count 8.9, Red Blood Count 4.44L, Hemoglobin 13.4L, Hematocrit 39.5L , Mean Corpuscular Volume 89, Mean Corpuscular Hemoglobin 30.2, Mean Corpuscular Hemoglobin Concent 33.9, Red Cell Distribution Width 11.4L, Platelet Count 143L, Mean Platelet Volume 7.6, Neutrophils (%) (Auto) 76.7H, Lymphocytes (%) (Auto) 17.5L, Monocytes (%) (Auto) 5.1, Eosinophils (%) (Auto) 0.0, Basophils (%) (Auto) 0.7, Sodium Level 139, Potassium Level 3.9, Chloride Level 105, Carbon Dioxide Level 22, Anion Gap 12, Blood Urea Nitrogen 16, Creatinine 1.5H, Estimat Glomerular Filtration Rate 56.7, Glucose Level 92, Hemoglobin A1c 5.3, Lactic Acid Level 0.70, Uric Acid 3.5, Calcium Level 8.0L, Phosphorus Level 3.2, Magnesium Level 2.0, Iron Level 17L, Total Iron Binding Capacity 124L, Percent Iron Saturation 14L, Unsaturated Iron Binding 107L, Ferritin 456H, Total Bilirubin 0.4, Gamma Glutamyl Transpeptidase 8, Aspartate Amino Transf (AST/SGOT) 14L, Alanine Aminotransferase (ALT/SGPT) 11L, Alkaline Phosphatase 81, Lactate Dehydrogenase 252H, Total Creatine Kinase 48, C- Reactive Protein, Quantitative 3.8H, Pro-B-Type Natriuretic Peptide 953H, Total Protein 6.0L, Albumin 2.2L, Globulin 3.8, Albumin/Globulin Ratio 0.6L, Triglycerides Level 131, Cholesterol Level 112, LDL Cholesterol 53, HDL Cholesterol 31L, Cholesterol/HDL Ratio 3.6, Folate 17.3, Thyroid Stimulating Hormone (TSH) 2.337 Height (Feet): 5 Height (Inches): 11.00 Weight (Pounds): 165 Nelson Dalal MD Apr 24, 2020 13:16
[2020-04-24] MEDS: cefTRIAXone 1 GM in D5W 50 ML IVPB SCH (14:24)
--- NOTE | 2020-04-24 14:58 | Infectious Diseases Prog Note ---
Assessment/Plan Assessment/Plan Full consult dictated: A) 1) covid-19 infection, pna, ? cap 2) pmh noted 3) allergies - nkda P) 1) ceftriaxone, azithromycin - day # 2 2) monitor for hypoxia 3) f/u on labs and chest x-ray 4) thank you Subjective Constitutional: Denies: fever HEENT: Reports: congestion - less Respiratory: Reports: shortness of breath - less Cardiovascular: Denies: chest pain Gastrointestinal/Abdominal: Reports: diarrhea - less; Denies: nausea, vomiting Allergies: Coded Allergies: No Known Allergies (Unverified , 03/17/15) Objective Last 24 Hour Vital Signs Date Time Temp Pulse Resp B/P (MAP) Pulse Ox O2 Delivery O2 Flow Rate FiO2 04/24/20 12:00 98.8 68 21 149/73 (98) 97 04/24/20 09:00 Room Air 04/24/20 08:00 99.0 62 21 138/74 (95) 95 04/24/20 04:00 99.9 76 20 134/78 (96) 96 04/23/20 21:13 Room Air 04/23/20 20:00 99.8 72 20 151/82 (105) 94 04/23/20 16:00 98.0 74 20 139/79 (99) 96 Height (Feet): 5 Height (Inches): 11.00 Weight (Pounds): 165 General Appearance: no acute distress, other - ox3, nad HEENT: normocephalic, atraumatic, anicteric Respiratory/Chest: no respiratory distress, no accessory muscle use Cardiovascular: normal rate, regular rhythm Microbiology Date/Time Source Procedure Growth Status 04/22/20 17:20 Blood Blood Culture - Preliminary NO GROWTH AFTER 24 HOURS Resulted 04/22/20 17:05 Blood Blood Culture - Preliminary NO GROWTH AFTER 24 HOURS Resulted 04/22/20 15:19 Nasopharynx SARS-CoV-2 RdRp Gene Assay - Final Complete Laboratory Tests Test 04/23/20 15:30 04/24/20 06:00 Urine Opiates Screen Negative (NEGATIVE) Urine Barbiturates Screen Negative (NEGATIVE) Phencyclidine (PCP) Screen Negative (NEGATIVE) Urine Amphetamines Screen Negative (NEGATIVE) Urine Benzodiazepines Screen Negative (NEGATIVE) Urine Cocaine Screen Positive (NEGATIVE) H Urine Marijuana (THC) Screen Negative (NEGATIVE) White Blood Count 8.9 K/UL (4.8-10.8) Red Blood Count 4.44 M/UL (4.70-6.10) L Hemoglobin 13.4 G/DL (14.2-18.0) L Hematocrit 39.5 % (42.0-52.0) L Mean Corpuscular Volume 89 FL (80-99) Mean Corpuscular Hemoglobin 30.2 PG (27.0-31.0) Mean Corpuscular Hemoglobin Concent 33.9 G/DL (32.0-36.0) Red Cell Distribution Width 11.4 % (11.6-14.8) L Platelet Count 143 K/UL (150-450) L Mean Platelet Volume 7.6 FL (6.5-10.1) Neutrophils (%) (Auto) 76.7 % (45.0-75.0) H Lymphocytes (%) (Auto) 17.5 % (20.0-45.0) L Monocytes (%) (Auto) 5.1 % (1.0-10.0) Eosinophils (%) (Auto) 0.0 % (0.0-3.0) Basophils (%) (Auto) 0.7 % (0.0-2.0) Sodium Level 139 MMOL/L (136-145) Potassium Level 3.9 MMOL/L (3.5-5.1) Chloride Level 105 MMOL/L (98-107) Carbon Dioxide Level 22 MMOL/L (21-32) Anion Gap 12 mmol/L (5-15) Blood Urea Nitrogen 16 mg/dL (7-18) Creatinine 1.5 MG/DL (0.55-1.30) H Estimat Glomerular Filtration Rate 56.7 mL/min (>60) Glucose Level 92 MG/DL (74-106) Hemoglobin A1c 5.3 % (4.3-6.0) Lactic Acid Level 0.70 mmol/L (0.4-2.0) Uric Acid 3.5 MG/DL (2.6-7.2) Calcium Level 8.0 MG/DL (8.5-10.1) L Phosphorus Level 3.2 MG/DL (2.5-4.9) Magnesium Level 2.0 MG/DL (1.8-2.4) Iron Level 17 ug/dL (50-175) L Total Iron Binding Capacity 124 ug/dL (250-450) L Percent Iron Saturation 14 % (15-50) L Unsaturated Iron Binding 107 ug/dL (112-346) L Ferritin 456 NG/ML (8-388) H Total Bilirubin 0.4 MG/DL (0.2-1.0) Gamma Glutamyl Transpeptidase 8 U/L (5-85) Aspartate Amino Transf (AST/SGOT) 14 U/L (15-37) L Alanine Aminotransferase (ALT/SGPT) 11 U/L (12-78) L Alkaline Phosphatase 81 U/L (46-116) Lactate Dehydrogenase 252 U/L (81-234) H Total Creatine Kinase 48 U/L (26-308) C-Reactive Protein, Quantitative 3.8 mg/dL (0.00-0.90) H Pro-B-Type Natriuretic Peptide 953 pg/mL (0-125) H Total Protein 6.0 G/DL (6.4-8.2) L Albumin 2.2 G/DL (3.4-5.0) L Globulin 3.8 g/dL Albumin/Globulin Ratio 0.6 (1.0-2.7) L Triglycerides Level 131 MG/DL (30-150) Cholesterol Level 112 MG/DL (< 200) LDL Cholesterol 53 mg/dL (<100) HDL Cholesterol 31 MG/DL (40-60) L Cholesterol/HDL Ratio 3.6 (3.3-4.4) Folate 17.3 NG/ML (8.6-58.9) Thyroid Stimulating Hormone (TSH) 2.337 uiU/mL (0.358-3.740) Current Medications Medications (Trade) Dose Ordered Sig/Dagmar Route PRN Reason Start Time Stop Time Status Last Admin Dose Admin Acetaminophen (Tylenol) 650 mg Q4H PRN ORAL Mild Pain (Pain Scale 1-3) 04/22/20 19:30 05/22/20 19:29 04/23/20 04:51 Albuterol Sulfate (Proventil MDI) 2 puff Q4H PRN INH Shortness of Breath 04/23/20 09:00 07/22/20 08:59 Ascorbic Acid (Vitamin C) 500 mg TWICE A DAY ORAL 04/23/20 09:00 05/23/20 08:59 04/24/20 08:05 Azithromycin 250 mg/Dextrose 250 ml @ 250 mls/hr Q24HRS IV 04/23/20 16:00 04/28/20 15:59 04/23/20 16:05 Ceftriaxone Sodium 1 gm/ Dextrose 50 ml @ 100 mls/hr Q24H IVPB 04/23/20 14:00 04/30/20 13:59 04/24/20 14:24 Diphenhydramine HCl (Benadryl) 25 mg Q6H PRN IVP Itching 04/22/20 19:30 05/22/20 19:29 Enoxaparin Sodium (Lovenox) 40 mg DAILY SUBQ 04/23/20 09:00 07/22/20 08:59 04/23/20 08:31 Loperamide HCl (Imodium) 2 mg Q6H PRN NG Diarrhea 04/23/20 09:00 05/23/20 08:59 Ondansetron HCl (Zofran) 4 mg Q6H PRN IVP Nausea & Vomiting 04/22/20 19:30 05/22/20 19:29 Pantoprazole (Protonix) 40 mg EVERY 12 HOURS ORAL 04/23/20 21:00 05/23/20 20:59 04/24/20 08:05 Sodium Chloride 1,000 ml @ 125 mls/hr Q8H IV 04/22/20 19:30 05/22/20 19:29 04/24/20 10:55 Tamsulosin HCl (Flomax) 0.4 mg BID ORAL 04/23/20 09:00 05/23/20 08:59 04/24/20 08:05 Zinc Sulfate (Zinc Sulfate) 220 mg DAILY ORAL 04/23/20 09:00 07/22/20 08:59 04/24/20 08:06 Kristie Hugo MD Apr 24, 2020 14:58
[2020-04-24 16:00] VITALS: BP 134/75
--- NOTE | 2020-04-24 16:29 | Consultation ---
DATE OF CONSULTATION: 04/24/2020 INFECTIOUS DISEASE CONSULTATION CONSULTING PHYSICIAN: Kristie Hugo MD. ATTENDING PHYSICIAN: Edison Wing MD. REFERRING PHYSICIAN: Edison Wing MD. REASON FOR CONSULTATION: COVID-19 infection, pneumonia. CHIEF COMPLAINT: Patient's chief complaint coming into the hospital is weakness, dehydration, COVID positive, and pneumonia also. HISTORY OF PRESENT ILLNESS: This is a very pleasant 64-year-old male who comes in to [facility] with weakness and dehydration. Patient had a chest x-ray had bilateral infiltrates. Patient was tested for COVID and was positive for COVID infection by nasopharyngeal molecular testing. Patient was seen yesterday by me. Patient has fevers, likely secondary to COVID infection. Infectious Disease consultation requested for management in this patient. Patient's saturations are 97% on room air. Patient was initially started on Rocephin and azithromycin for history of possibly community-acquired pneumonia. MAR is noted. Orders were noted. Notes and records were reviewed. Case discussed with INSTRUMENTATION DESIGNER, Ana Keller ([facility]) of Dr. Wing's service. REVIEW OF SYSTEMS: CONSTITUTIONAL: Generalized fatigue. He came in with weakness and dehydration. He has fevers, but no night sweats or chills. No weight loss. HEAD AND NECK: No head pain or neck pain. No neck stiffness, thrush, or dysphagia. CARDIAC: No chest pain or palpitations. GASTROINTESTINAL: No nausea or vomiting. He did come in with diarrhea, but currently no diarrhea. No dysphagia. GENITOURINARY: No dysuria or frequency. PULMONARY: Mild congestion and short of breath. SKIN: No rash or itching. EXTREMITIES: No extremity pain. No joint pain. No leg pain. NEUROLOGIC: No seizures, generalized fatigue. No focal weakness. No seizure activity. PAST MEDICAL HISTORY: Per the records, no significant past medical history mentioned. However, it looks like he does have possible chronic renal failure with elevated creatinine. He has mild anemia. ALLERGIES: No known drug allergies. No antibiotic allergies. SOCIAL HISTORY: Looks like positive for acute cocaine use in the past. No alcohol use. No smoking per the records. FAMILY HISTORY: Noncontributory. Negative for tuberculosis or cancer. MEDICATIONS: Upon reviewing the MAR, patient is on following medications. He is on azithromycin and Rocephin, which was started yesterday, pantoprazole, prn meds, Zosyn, loperamide, albuterol, ascorbic acid, sodium, zinc sulfate, Zofran, acetaminophen, diphenhydramine. Outside medications noted and reconciliated. PHYSICAL EXAMINATION: VITAL SIGNS: Temperature 98.8, pulse rate 68, respiratory rate 21, blood pressure 149/73, saturation 97% on room air. T-max is 101.9. GENERAL: Alert, responsive. No distress. HEAD AND NECK: Oral exam, no thrush. Eye exam, no icterus. Normocephalic. Neck is supple. No JVD. HEART: Regular. No gallop or murmur. No friction rub. ABDOMEN: Soft. Positive bowel sounds. Nontender. No organomegaly. LUNGS: Few bilateral rhonchi and rales. SKIN: No rash or dermatitis. MUSCULOSKELETAL: No effusions. No septic arthritis. Lower extremities are without cellulitis. No dermatitis. PERIPHERAL VASCULAR: No gangrene or cyanosis. GENITOURINARY: No Meyer. No CVA tenderness. LINE SITES: Without phlebitis. NEUROLOGIC: Intact, nonfocal. Alert and oriented. LABORATORY DATA: Patient had creatinine 1.5. LFTs noted. White count 8.9, hemoglobin 13.4. Sed rate is 42. Ferritin is elevated at 456. UA, leukocyte esterase negative. Cultures are pending. Blood cultures were done. IMAGING STUDIES: Chest x-ray with bilateral infiltrates that have increased. COVID testing by nasopharyngeal molecular testing was positive. It was nucleic acid testing. ASSESSMENT AND PLAN: 1. Patient has COVID-19 infection with bilateral infiltrates. Possible community-acquired pneumonia and fevers. At this time, continue Rocephin and azithromycin day #2. Plan empiric treatment for community-acquired pneumonia for total of 7 days. Continue Rocephin and azithromycin for cap. Continue supportive care for COVID-19 infection. Patient has fevers, but is not hypoxic. No indication for remdesivir currently especially with elevated creatinine. Also no indication for steroids with stable saturation. Continue COVID isolation. 2. Elevated creatinine, possible chronic kidney disease. 3. Anemia, mild. 4. No history of diabetes or hypertension. 5. No history of cancer. 6. Allergies are negative. 7. Social history is positive for cocaine use in the past. 8. Family history is noncontributory. 9. MAR is noted. 10. Case is discussed with RN. 11. Continue treatment per primary consultants. Kristie Hugo M.D. DR: ALLYSON JOB#: [id number] CC: SARAI
[2020-04-24 20:00] VITALS: BP 129/72
[2020-04-24] MEDS ORDERED: ENSURE CLEAR296 ML PO (20:39)
[2020-04-25] VITALS: BP 131/68
[2020-04-25 04:00] VITALS: BP 127/75
[2020-04-25 06:42] LABS: BASOPHILS % (AUTO) 0.9 % (0.0-2.0); EOSINOPHILS % (AUTO) 0.2 % (0.0-3.0); HEMATOCRIT 40.7 % (42.0-52.0); HEMOGLOBIN 13.8 G/DL (14.2-18.0); LYMPHOCYTES % (AUTO) 24.1 % (20.0-45.0); MEAN CORPUSCULAR VOLUME 89 FL (80-99); NEUTROPHILS % (AUTO) 67.8 % (45.0-75.0); PLATELET COUNT 162 K/UL (150-450); RED BLOOD COUNT 4.57 M/UL (4.70-6.10); RED CELL DISTRIBUTION WIDTH 11.3 % (11.6-14.8); WHITE BLOOD COUNT 5.3 K/UL (4.8-10.8)
[2020-04-25 07:22] LABS: ANION GAP 12 mmol/L (5-15); BLOOD UREA NITROGEN 19 mg/dL (7-18); CALCIUM 8.1 MG/DL (8.5-10.1); CARBON DIOXIDE 21 MMOL/L (21-32); CHLORIDE 107 MMOL/L (98-107); CREATININE 1.4 MG/DL (0.55-1.30); POTASSIUM 4.1 MMOL/L (3.5-5.1); SODIUM 140 MMOL/L (136-145)
[2020-04-25 08:00] VITALS: BP 148/86
[2020-04-25] MEDS: Tamsulosin 0.4mg cap ORAL SCH ×2 (09:03→17:32)
[2020-04-25] MEDS: Ascorbic Acid 500mg tab ORAL SCH ×2 (09:03→17:32)
[2020-04-25] MEDS: Zinc Sulfate 220mg ORAL SCH (09:03)
[2020-04-25] MEDS: Enoxaparin 40mg Inj SUBQ SCH (09:08)
--- NOTE | 2020-04-25 10:15 | Pulmonology Progress Note ---
Ana Keller MARKETING SALES CONSULTANT 04/25/20 1015: Subjective ROS Limited/Unobtainable: Yes Constitutional: Denies: fever Gastrointestinal/Abdominal: Reports: diarrhea - less; Denies: nausea, vomiting Allergies: Coded Allergies: No Known Allergies (Unverified , 03/17/15) Subjective remains afebrile no resp distress pulse ox stable on RA fever yest afternoon, currently afebrile in isolation room creat trending down denies CP, SOB diarrhea resolved Objective Last 24 Hour Vital Signs Date Time Temp Pulse Resp B/P (MAP) Pulse Ox O2 Delivery O2 Flow Rate FiO2 04/25/20 09:00 Room Air 04/25/20 08:00 97.9 60 19 148/86 (106) 94 04/25/20 04:00 98.9 62 17 127/75 (92) 94 04/25/20 00:00 98.8 66 15 131/68 (89) 95 04/24/20 21:00 Room Air 04/24/20 20:00 99.1 64 16 129/72 (91) 95 04/24/20 17:30 100.4 04/24/20 16:00 100.2 104 21 134/75 (94) 95 04/24/20 12:00 98.8 68 21 149/73 (98) 97 Intake and Output 04/24/20 04/25/20 19:00 07:00 Intake Total 1885 ml 1610 ml Output Total 800 ml Balance 1885 ml 810 ml Intake Oral 960 ml 360 ml IV Total 925 ml 1250 ml Output Urine Total 800 ml # Voids 2 Objective General Appearance: no apparent distress, alert Lines, tubes and drains: peripheral HEENT: normocephalic, atraumatic, anicteric, mucous membranes moist Neck: supple Respiratory/Chest: chest wall non-tender, lungs clear, no respiratory distress , no accessory muscle use Cardiovascular/Chest: normal rate Abdomen: normal bowel sounds, non tender, soft Extremities: normal range of motion, no calf tenderness, normal capillary refill Skin Exam: normal pigmentation, warm/dry Neurologic: no motor/sensory deficits, alert, responsive Musculoskeletal: normal muscle bulk Microbiology Date/Time Source Procedure Growth Status 04/22/20 17:20 Blood Blood Culture - Preliminary NO GROWTH AFTER 48 HOURS Resulted 04/22/20 17:05 Blood Blood Culture - Preliminary NO GROWTH AFTER 48 HOURS Resulted 04/22/20 15:19 Nasopharynx SARS-CoV-2 RdRp Gene Assay - Final Complete Laboratory Tests 04/25/20 05:00: White Blood Count 5.3, Red Blood Count 4.57L, Hemoglobin 13.8L, Hematocrit 40.7L , Mean Corpuscular Volume 89, Mean Corpuscular Hemoglobin 30.1, Mean Corpuscular Hemoglobin Concent 33.8, Red Cell Distribution Width 11.3L, Platelet Count 162, Mean Platelet Volume 7.3, Neutrophils (%) (Auto) 67.8, Lymphocytes (%) (Auto) 24.1, Monocytes (%) (Auto) 7.0, Eosinophils (%) (Auto) 0.2, Basophils (%) (Auto) 0.9, Sodium Level 140, Potassium Level 4.1, Chloride Level 107, Carbon Dioxide Level 21, Anion Gap 12, Blood Urea Nitrogen 19H, Creatinine 1.4H, Estimat Glomerular Filtration Rate > 60, Glucose Level 91, Calcium Level 8.1L, Ferritin 414H, C-Reactive Protein, Quantitative 3.5H Current Medications Medications (Trade) Dose Ordered Sig/Dagmar Route PRN Reason Start Time Stop Time Status Last Admin Dose Admin Acetaminophen (Tylenol) 650 mg Q4H PRN ORAL Mild Pain (Pain Scale 1-3) 04/22/20 19:30 05/22/20 19:29 04/24/20 17:00 Acetaminophen (Tylenol) 650 mg Q4H PRN ORAL Temp >100.5 04/24/20 17:30 05/24/20 17:29 Albuterol Sulfate (Proventil MDI) 2 puff Q4H PRN INH Shortness of Breath 04/23/20 09:00 07/22/20 08:59 Ascorbic Acid (Vitamin C) 500 mg TWICE A DAY ORAL 04/23/20 09:00 05/23/20 08:59 04/25/20 09:03 Azithromycin 250 mg/Dextrose 250 ml @ 250 mls/hr Q24HRS IV 04/23/20 16:00 04/28/20 15:59 04/24/20 16:21 Ceftriaxone Sodium 1 gm/ Dextrose 50 ml @ 100 mls/hr Q24H IVPB 04/23/20 14:00 04/30/20 13:59 04/24/20 14:24 Diphenhydramine HCl (Benadryl) 25 mg Q6H PRN IVP Itching 04/22/20 19:30 05/22/20 19:29 Enoxaparin Sodium (Lovenox) 40 mg DAILY SUBQ 04/23/20 09:00 07/22/20 08:59 04/25/20 09:08 Loperamide HCl (Imodium) 2 mg Q6H PRN NG Diarrhea 04/23/20 09:00 05/23/20 08:59 Ondansetron HCl (Zofran) 4 mg Q6H PRN IVP Nausea & Vomiting 04/22/20 19:30 05/22/20 19:29 Pantoprazole (Protonix) 40 mg EVERY 12 HOURS ORAL 04/23/20 21:00 05/23/20 20:59 04/25/20 09:03 Sodium Chloride 1,000 ml @ 125 mls/hr Q8H IV 04/22/20 19:30 05/22/20 19:29 04/25/20 04:46 Tamsulosin HCl (Flomax) 0.4 mg BID ORAL 04/23/20 09:00 05/23/20 08:59 04/25/20 09:03 Zinc Sulfate (Zinc Sulfate) 220 mg DAILY ORAL 04/23/20 09:00 07/22/20 08:59 04/25/20 09:03 Assessment/Plan Assessment/Plan ASSESSMENT COVID 19 PNA ARF possibly on CKD Diarrhea Generalized weakness Cocaine abuse PLAN OF CARE MS floor isolation supplemetnal O to keep sat >90% Albuterol MDI prn on abx per ID recs-> Ceftriaxone and Azithromycin hold steroids and Remdesivir given pulse ox stable on RA fup CXR 04/24 -> increased BL infiltrates a/c with Lovenox Venous Duplex BLE check IL-6 pending inflammatory markers not quite impressive to show risk for cytokine storm: ferritin 456->414; CRP 3.8 ->3.5; LDH 252, D dimer 2.06 vit C and zinc BCX 04/22 NGTD IVF, decrease to 75 since creat trending down and BP rising renal US monitor renal parameters, lytes, correct lytes as needed avoid nephrotoxics nephro follows creat trending down diarrhea improved with Imodium stool C dif if diarrhea persist consider Lactobacillus HIV nonreactive urine tox + cocaine 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 Agree with above A&P as it reflects our joint deliberations. Problem List: COVID19 PNA +/- CAP Diarrhea MALCOM Elevated D-Dimer Plan: * Monitor oxygenation closely, currently room air * hold remdesivir/decadron while tolerating room air * trend CRP and ferritin daily * abx per ID * IVF, monitor renal function * DVT PPx: LMWH Ana Keller NP Apr 25, 2020 10:15 Rasta Sutherland MD Apr 25, 2020 20:50
--- NOTE | 2020-04-25 10:47 | Nephrology Progress Note ---
Assessment/Plan Problem List: (1) MALCOM (acute kidney injury) (2) COVID-19 (3) Diarrhea (4) Cocaine abuse Assessment Acute renal failure, possible underlying chronic kidney failure Dehydration COVID-19 infection Lower lung patchy infiltrate Diarrhea Cocaine use Mild anemia Plan April 25: Serum creatinine 1.4. Blood pressure stable. Medication list reviewed. Stable from renal standpoint of view. April 24: Serum creatinine is down to 1.5. Urine positive for cocaine. Continue per consultants. April 23: Stop ibuprofen IV fluids Avoid nephrotoxic's Monitor renal parameters Per consultants / ID HIV screen Subjective ROS Limited/Unobtainable: No Constitutional: Reports: malaise Objective Objective Last 24 Hour Vital Signs Date Time Temp Pulse Resp B/P (MAP) Pulse Ox O2 Delivery O2 Flow Rate FiO2 04/25/20 09:00 Room Air 04/25/20 08:00 97.9 60 19 148/86 (106) 94 04/25/20 04:00 98.9 62 17 127/75 (92) 94 04/25/20 00:00 98.8 66 15 131/68 (89) 95 04/24/20 21:00 Room Air 04/24/20 20:00 99.1 64 16 129/72 (91) 95 04/24/20 17:30 100.4 04/24/20 16:00 100.2 104 21 134/75 (94) 95 04/24/20 12:00 98.8 68 21 149/73 (98) 97 Intake and Output 04/24/20 04/25/20 19:00 07:00 Intake Total 1885 ml 1610 ml Output Total 800 ml Balance 1885 ml 810 ml Intake Oral 960 ml 360 ml IV Total 925 ml 1250 ml Output Urine Total 800 ml # Voids 2 Current Medications Medications (Trade) Dose Ordered Sig/Dagmar Route PRN Reason Start Time Stop Time Status Last Admin Dose Admin Acetaminophen (Tylenol) 650 mg Q4H PRN ORAL Mild Pain (Pain Scale 1-3) 04/22/20 19:30 05/22/20 19:29 04/24/20 17:00 Acetaminophen (Tylenol) 650 mg Q4H PRN ORAL Temp >100.5 04/24/20 17:30 05/24/20 17:29 Albuterol Sulfate (Proventil MDI) 2 puff Q4H PRN INH Shortness of Breath 04/23/20 09:00 07/22/20 08:59 Ascorbic Acid (Vitamin C) 500 mg TWICE A DAY ORAL 04/23/20 09:00 05/23/20 08:59 04/25/20 09:03 Azithromycin 250 mg/Dextrose 250 ml @ 250 mls/hr Q24HRS IV 04/23/20 16:00 04/28/20 15:59 04/24/20 16:21 Ceftriaxone Sodium 1 gm/ Dextrose 50 ml @ 100 mls/hr Q24H IVPB 04/23/20 14:00 04/30/20 13:59 04/24/20 14:24 Diphenhydramine HCl (Benadryl) 25 mg Q6H PRN IVP Itching 04/22/20 19:30 05/22/20 19:29 Enoxaparin Sodium (Lovenox) 40 mg DAILY SUBQ 04/23/20 09:00 07/22/20 08:59 04/25/20 09:08 Loperamide HCl (Imodium) 2 mg Q6H PRN NG Diarrhea 04/23/20 09:00 05/23/20 08:59 Ondansetron HCl (Zofran) 4 mg Q6H PRN IVP Nausea & Vomiting 04/22/20 19:30 05/22/20 19:29 Pantoprazole (Protonix) 40 mg EVERY 12 HOURS ORAL 04/23/20 21:00 05/23/20 20:59 04/25/20 09:03 Sodium Chloride 1,000 ml @ 75 mls/hr [id number] IV 04/25/20 19:30 05/22/20 19:29 Tamsulosin HCl (Flomax) 0.4 mg BID ORAL 04/23/20 09:00 05/23/20 08:59 04/25/20 09:03 Zinc Sulfate (Zinc Sulfate) 220 mg DAILY ORAL 04/23/20 09:00 07/22/20 08:59 04/25/20 09:03 Laboratory Tests 04/25/20 05:00: White Blood Count 5.3, Red Blood Count 4.57L, Hemoglobin 13.8L, Hematocrit 40.7L , Mean Corpuscular Volume 89, Mean Corpuscular Hemoglobin 30.1, Mean Corpuscular Hemoglobin Concent 33.8, Red Cell Distribution Width 11.3L, Platelet Count 162, Mean Platelet Volume 7.3, Neutrophils (%) (Auto) 67.8, Lymphocytes (%) (Auto) 24.1, Monocytes (%) (Auto) 7.0, Eosinophils (%) (Auto) 0.2, Basophils (%) (Auto) 0.9, Sodium Level 140, Potassium Level 4.1, Chloride Level 107, Carbon Dioxide Level 21, Anion Gap 12, Blood Urea Nitrogen 19H, Creatinine 1.4H, Estimat Glomerular Filtration Rate > 60, Glucose Level 91, Calcium Level 8.1L, Ferritin 414H, C-Reactive Protein, Quantitative 3.5H Height (Feet): 5 Height (Inches): 11.00 Weight (Pounds): 165 General Appearance: no apparent distress Cardiovascular: normal rate Respiratory/Chest: decreased breath sounds Abdomen: distended Nelson Dalal MD Apr 25, 2020 10:47
[2020-04-25 12:00] VITALS: BP 151/66
--- NOTE | 2020-04-25 12:09 | General Progress Note ---
Assessment/Plan Problem List: (1) Cocaine abuse ICD Codes: F14.10 - Cocaine abuse, uncomplicated SNOMED: 62470742 (2) COVID-19 ICD Codes: U07.1 - COVID-19 SNOMED: 536957481 (3) Diarrhea ICD Codes: R19.7 - Diarrhea, unspecified SNOMED: 07138244 Qualifiers: Qualified Codes: R19.7 - Diarrhea, unspecified Assessment/Plan: pulm care good response to Imodium fu labs Subjective ROS Limited/Unobtainable: No Allergies: Coded Allergies: No Known Allergies (Unverified , 03/17/15) Objective Last 24 Hour Vital Signs Date Time Temp Pulse Resp B/P (MAP) Pulse Ox O2 Delivery O2 Flow Rate FiO2 04/25/20 09:00 Room Air 04/25/20 08:00 97.9 60 19 148/86 (106) 94 04/25/20 04:00 98.9 62 17 127/75 (92) 94 04/25/20 00:00 98.8 66 15 131/68 (89) 95 04/24/20 21:00 Room Air 04/24/20 20:00 99.1 64 16 129/72 (91) 95 04/24/20 17:30 100.4 04/24/20 16:00 100.2 104 21 134/75 (94) 95 Intake and Output 04/24/20 04/25/20 19:00 07:00 Intake Total 1885 ml 1610 ml Output Total 800 ml Balance 1885 ml 810 ml Intake Oral 960 ml 360 ml IV Total 925 ml 1250 ml Output Urine Total 800 ml # Voids 2 Laboratory Tests 04/25/20 05:00: White Blood Count 5.3, Red Blood Count 4.57L, Hemoglobin 13.8L, Hematocrit 40.7L , Mean Corpuscular Volume 89, Mean Corpuscular Hemoglobin 30.1, Mean Corpuscular Hemoglobin Concent 33.8, Red Cell Distribution Width 11.3L, Platelet Count 162, Mean Platelet Volume 7.3, Neutrophils (%) (Auto) 67.8, Lymphocytes (%) (Auto) 24.1, Monocytes (%) (Auto) 7.0, Eosinophils (%) (Auto) 0.2, Basophils (%) (Auto) 0.9, Sodium Level 140, Potassium Level 4.1, Chloride Level 107, Carbon Dioxide Level 21, Anion Gap 12, Blood Urea Nitrogen 19H, Creatinine 1.4H, Estimat Glomerular Filtration Rate > 60, Glucose Level 91, Calcium Level 8.1L, Ferritin 414H, C-Reactive Protein, Quantitative 3.5H Height (Feet): 5 Height (Inches): 11.00 Weight (Pounds): 165 General Appearance: alert EENT: normal ENT inspection Neck: supple Cardiovascular: normal rate Respiratory/Chest: decreased breath sounds Abdomen: normal bowel sounds, non tender, soft Extremities: non-tender Pramod Torres MD Apr 25, 2020 12:09
[2020-04-25] MEDS: cefTRIAXone 1 GM in D5W 50 ML IVPB SCH (13:59)
--- NOTE | 2020-04-25 14:13 | Surgery Progress Note ---
Surgery Progress Note Subjective Symptoms: improved, tolerating diet, passing flatus Objective Last 24 Hour Vital Signs Date Time Temp Pulse Resp B/P (MAP) Pulse Ox O2 Delivery O2 Flow Rate FiO2 04/25/20 12:00 99.0 64 18 151/66 (94) 95 04/25/20 09:00 Room Air 04/25/20 08:00 97.9 60 19 148/86 (106) 94 04/25/20 04:00 98.9 62 17 127/75 (92) 94 04/25/20 00:00 98.8 66 15 131/68 (89) 95 04/24/20 21:00 Room Air 04/24/20 20:00 99.1 64 16 129/72 (91) 95 04/24/20 17:30 100.4 04/24/20 16:00 100.2 104 21 134/75 (94) 95 I&O Intake and Output 04/24/20 04/25/20 19:00 07:00 Intake Total 1885 ml 1610 ml Output Total 800 ml Balance 1885 ml 810 ml Intake Oral 960 ml 360 ml IV Total 925 ml 1250 ml Output Urine Total 800 ml # Voids 2 Dressing: saturated Cardiovascular: RSR Respiratory: decreased breath sounds Abdomen: soft, non-tender, present bowel sounds Extremities: no tenderness, no cyanosis Laboratory Tests Test 04/25/20 05:00 White Blood Count 5.3 K/UL (4.8-10.8) Red Blood Count 4.57 M/UL (4.70-6.10) L Hemoglobin 13.8 G/DL (14.2-18.0) L Hematocrit 40.7 % (42.0-52.0) L Mean Corpuscular Volume 89 FL (80-99) Mean Corpuscular Hemoglobin 30.1 PG (27.0-31.0) Mean Corpuscular Hemoglobin Concent 33.8 G/DL (32.0-36.0) Red Cell Distribution Width 11.3 % (11.6-14.8) L Platelet Count 162 K/UL (150-450) Mean Platelet Volume 7.3 FL (6.5-10.1) Neutrophils (%) (Auto) 67.8 % (45.0-75.0) Lymphocytes (%) (Auto) 24.1 % (20.0-45.0) Monocytes (%) (Auto) 7.0 % (1.0-10.0) Eosinophils (%) (Auto) 0.2 % (0.0-3.0) Basophils (%) (Auto) 0.9 % (0.0-2.0) Sodium Level 140 MMOL/L (136-145) Potassium Level 4.1 MMOL/L (3.5-5.1) Chloride Level 107 MMOL/L (98-107) Carbon Dioxide Level 21 MMOL/L (21-32) Anion Gap 12 mmol/L (5-15) Blood Urea Nitrogen 19 mg/dL (7-18) H Creatinine 1.4 MG/DL (0.55-1.30) H Estimat Glomerular Filtration Rate > 60 mL/min (>60) Glucose Level 91 MG/DL (74-106) Calcium Level 8.1 MG/DL (8.5-10.1) L Ferritin 414 NG/ML (8-388) H C-Reactive Protein, Quantitative 3.5 mg/dL (0.00-0.90) H Plan Problems: (1) ARF (acute renal failure) (2) Episode of generalized weakness (3) Cocaine abuse (4) Diarrhea Assessment & Plan: 64M diarrhea improving okay for diet exam stable no acute surgical intervention at this time kub ordered thank you responded well to Imodium (5) COVID-19 Assessment & Plan: + appreciate ID input (6) Dental abscess (7) Dental abscess (8) Hernia (9) MALCOM (acute kidney injury) Jose Delgadillo Apr 25, 2020 14:13
[2020-04-25 16:00] VITALS: BP 145/76
[2020-04-25 19:52] VITALS: BP 144/80
[2020-04-26] VITALS: BP 128/71
[2020-04-26 04:00] VITALS: BP 130/75
[2020-04-26 06:49] LABS: BASOPHILS % (AUTO) 0.6 % (0.0-2.0); EOSINOPHILS % (AUTO) 0.4 % (0.0-3.0); HEMATOCRIT 38.4 % (42.0-52.0); HEMOGLOBIN 12.9 G/DL (14.2-18.0); LYMPHOCYTES % (AUTO) 25.6 % (20.0-45.0); MEAN CORPUSCULAR VOLUME 89 FL (80-99); MONOCYTES % (AUTO) 8.4 % (1.0-10.0); PLATELET COUNT 206 K/UL (150-450); RED BLOOD COUNT 4.33 M/UL (4.70-6.10); RED CELL DISTRIBUTION WIDTH 11.3 % (11.6-14.8); WHITE BLOOD COUNT 6.9 K/UL (4.8-10.8)
[2020-04-26 07:38] VITALS: BP 154/88
[2020-04-26 08:00] LABS: ANION GAP 11 mmol/L (5-15); BLOOD UREA NITROGEN 15 mg/dL (7-18); CALCIUM 8.4 MG/DL (8.5-10.1); CARBON DIOXIDE 22 MMOL/L (21-32); CHLORIDE 108 MMOL/L (98-107); CREATININE 1.3 MG/DL (0.55-1.30); FERRITIN 411 NG/ML (8-388); POTASSIUM 3.8 MMOL/L (3.5-5.1); SODIUM 141 MMOL/L (136-145)
[2020-04-26] MEDS: Zinc Sulfate 220mg ORAL SCH (09:12)
[2020-04-26] MEDS: Tamsulosin 0.4mg cap ORAL SCH ×2 (09:12→17:10)
[2020-04-26] MEDS: Ascorbic Acid 500mg tab ORAL SCH ×2 (09:12→17:10)
--- NOTE | 2020-04-26 09:15 | General Progress Note ---
Assessment/Plan Problem List: (1) Cocaine abuse ICD Codes: F14.10 - Cocaine abuse, uncomplicated SNOMED: 56135166 (2) COVID-19 ICD Codes: U07.1 - COVID-19 SNOMED: 034374505 (3) Diarrhea ICD Codes: R19.7 - Diarrhea, unspecified SNOMED: [id number] Qualifiers: Qualified Codes: R19.7 - Diarrhea, unspecified Assessment/Plan: pulm care good response to Imodium fu labs dc IVF on reg diet Subjective ROS Limited/Unobtainable: Yes Allergies: Coded Allergies: No Known Allergies (Unverified , 03/17/15) Objective Last 24 Hour Vital Signs Date Time Temp Pulse Resp B/P (MAP) Pulse Ox O2 Delivery O2 Flow Rate FiO2 04/26/20 08:04 Room Air 04/26/20 07:38 96.7 60 22 154/88 (110) 93 04/26/20 04:00 97.9 67 20 130/75 (93) 98 04/26/20 00:00 98.8 60 20 128/71 (90) 98 04/25/20 21:00 Room Air 04/25/20 19:52 98.4 61 19 144/80 (101) 95 04/25/20 16:00 98.8 61 19 145/76 (99) 95 04/25/20 12:00 99.0 64 18 151/66 (94) 95 Intake and Output 04/25/20 04/26/20 19:00 07:00 Intake Total 1100 ml Output Total 1000 ml 800 ml Balance 100 ml -800 ml Intake Oral 800 ml IV Total 300 ml Output Urine Total 1000 ml 800 ml Laboratory Tests 04/26/20 04:10: White Blood Count 6.9, Red Blood Count 4.33L, Hemoglobin 12.9L, Hematocrit 38.4L , Mean Corpuscular Volume 89, Mean Corpuscular Hemoglobin 29.9, Mean Corpuscular Hemoglobin Concent 33.7, Red Cell Distribution Width 11.3L, Platelet Count 206, Mean Platelet Volume 7.9, Neutrophils (%) (Auto) 65.0, Lymphocytes (%) (Auto) 25.6, Monocytes (%) (Auto) 8.4, Eosinophils (%) (Auto) 0.4, Basophils (%) (Auto) 0.6, Sodium Level 141, Potassium Level 3.8, Chloride Level 108H, Carbon Dioxide Level 22, Anion Gap 11, Blood Urea Nitrogen 15, Creatinine 1.3, Estimat Glomerular Filtration Rate > 60, Glucose Level 87, Calcium Level 8.4L, Ferritin 411H, C-Reactive Protein, Quantitative 2.2H Height (Feet): 5 Height (Inches): 11.00 Weight (Pounds): 155 General Appearance: alert EENT: normal ENT inspection Neck: supple Cardiovascular: normal rate Respiratory/Chest: decreased breath sounds Abdomen: normal bowel sounds, non tender, soft Extremities: non-tender Pramod Torres MD Apr 26, 2020 09:15
[2020-04-26] MEDS: Enoxaparin 40mg Inj SUBQ SCH (09:18)
--- NOTE | 2020-04-26 10:29 | Pulmonology Progress Note ---
Ana Keller GLUE CLAMP OPERATOR 04/26/20 1029: Subjective ROS Limited/Unobtainable: Yes Constitutional: Denies: fever Gastrointestinal/Abdominal: Reports: diarrhea - less; Denies: nausea, vomiting Allergies: Coded Allergies: No Known Allergies (Unverified , 03/17/15) Subjective day #4 isolation remains afebrile no resp distress pulse ox stable on RA no further fevers creat trending down denies CP, SOB diarrhea resolved Objective Last 24 Hour Vital Signs Date Time Temp Pulse Resp B/P (MAP) Pulse Ox O2 Delivery O2 Flow Rate FiO2 04/26/20 08:04 Room Air 04/26/20 07:38 96.7 60 22 154/88 (110) 93 04/26/20 04:00 97.9 67 20 130/75 (93) 98 04/26/20 00:00 98.8 60 20 128/71 (90) 98 04/25/20 21:00 Room Air 04/25/20 19:52 98.4 61 19 144/80 (101) 95 04/25/20 16:00 98.8 61 19 145/76 (99) 95 04/25/20 12:00 99.0 64 18 151/66 (94) 95 Intake and Output 04/25/20 04/26/20 19:00 07:00 Intake Total 1100 ml Output Total 1000 ml 800 ml Balance 100 ml -800 ml Intake Oral 800 ml IV Total 300 ml Output Urine Total 1000 ml 800 ml Objective General Appearance: no apparent distress, alert Lines, tubes and drains: peripheral HEENT: normocephalic, atraumatic, anicteric, mucous membranes moist Neck: supple Respiratory/Chest: chest wall non-tender, lungs clear, no respiratory distress , no accessory muscle use Cardiovascular/Chest: normal rate Abdomen: normal bowel sounds, non tender, soft Extremities: normal range of motion, no calf tenderness, normal capillary refill Skin Exam: normal pigmentation, warm/dry Neurologic: no motor/sensory deficits, alert, responsive Musculoskeletal: normal muscle bulk Laboratory Tests 04/26/20 04:10: White Blood Count 6.9, Red Blood Count 4.33L, Hemoglobin 12.9L, Hematocrit 38.4L , Mean Corpuscular Volume 89, Mean Corpuscular Hemoglobin 29.9, Mean Corpuscular Hemoglobin Concent 33.7, Red Cell Distribution Width 11.3L, Platelet Count 206, Mean Platelet Volume 7.9, Neutrophils (%) (Auto) 65.0, Lymphocytes (%) (Auto) 25.6, Monocytes (%) (Auto) 8.4, Eosinophils (%) (Auto) 0.4, Basophils (%) (Auto) 0.6, Sodium Level 141, Potassium Level 3.8, Chloride Level 108H, Carbon Dioxide Level 22, Anion Gap 11, Blood Urea Nitrogen 15, Creatinine 1.3, Estimat Glomerular Filtration Rate > 60, Glucose Level 87, Calcium Level 8.4L, Ferritin 411H, C-Reactive Protein, Quantitative 2.2H Current Medications Medications (Trade) Dose Ordered Sig/Dagmar Route PRN Reason Start Time Stop Time Status Last Admin Dose Admin Acetaminophen (Tylenol) 650 mg Q4H PRN ORAL Mild Pain (Pain Scale 1-3) 04/22/20 19:30 05/22/20 19:29 04/24/20 17:00 Acetaminophen (Tylenol) 650 mg Q4H PRN ORAL Temp >100.5 04/24/20 17:30 05/24/20 17:29 Albuterol Sulfate (Proventil MDI) 2 puff Q4H PRN INH Shortness of Breath 04/23/20 09:00 07/22/20 08:59 Ascorbic Acid (Vitamin C) 500 mg TWICE A DAY ORAL 04/23/20 09:00 05/23/20 08:59 04/26/20 09:12 Azithromycin 250 mg/Dextrose 250 ml @ 250 mls/hr Q24HRS IV 04/23/20 16:00 04/28/20 15:59 04/25/20 15:53 Ceftriaxone Sodium 1 gm/ Dextrose 50 ml @ 100 mls/hr Q24H IVPB 04/23/20 14:00 04/30/20 13:59 04/25/20 13:59 Diphenhydramine HCl (Benadryl) 25 mg Q6H PRN IVP Itching 04/22/20 19:30 05/22/20 19:29 Enoxaparin Sodium (Lovenox) 40 mg DAILY SUBQ 04/23/20 09:00 07/22/20 08:59 04/26/20 09:18 Loperamide HCl (Imodium) 2 mg Q6H PRN NG Diarrhea 04/23/20 09:00 05/23/20 08:59 Ondansetron HCl (Zofran) 4 mg Q6H PRN IVP Nausea & Vomiting 04/22/20 19:30 05/22/20 19:29 Pantoprazole (Protonix) 40 mg EVERY 12 HOURS ORAL 04/23/20 21:00 05/23/20 20:59 04/26/20 09:12 Tamsulosin HCl (Flomax) 0.4 mg BID ORAL 04/23/20 09:00 05/23/20 08:59 04/26/20 09:12 Zinc Sulfate (Zinc Sulfate) 220 mg DAILY ORAL 04/23/20 09:00 07/22/20 08:59 04/26/20 09:12 Assessment/Plan Assessment/Plan ASSESSMENT COVID 19 PNA ARF possibly on CKD Diarrhea Generalized weakness Cocaine abuse Homeless PLAN OF CARE MS floor isolation day #4 supplemetnal O to keep sat >90% Albuterol MDI prn on abx per ID recs-> Ceftriaxone and Azithromycin hold steroids and Remdesivir given pulse ox stable on RA fup CXR 04/24 -> increased BL infiltrates resp status remains stable, monitor closely a/c with Lovenox Venous Duplex BLE check IL-6 -49.5 inflammatory markers not quite impressive to show risk for cytokine storm: ferritin 456->414->411 CRP 3.8 ->3.5->2.2 LDH 252, D dimer 2.06 vit C and zinc BCX 04/22 NGTD dc IVF, renal US monitor renal parameters, lytes, correct lytes as needed avoid nephrotoxics nephro follows creat trending down diarrhea improved with Imodium stool C dif if diarrhea persist consider Lactobacillus HIV nonreactive urine tox + cocaine reimbursement counselor on 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 Agree with above A&P as it reflects our joint deliberations. Problem List: COVID19 PNA +/- CAP Diarrhea MALCOM Elevated D-Dimer Plan: * Monitor oxygenation closely, currently room air * hold remdesivir/decadron while tolerating room air * trend CRP and ferritin daily * abx per ID * IVF, monitor renal function * DVT PPx: LMWH Ana Keller NP Apr 26, 2020 10:29 Rasta Sutherland MD Apr 26, 2020 14:27
--- NOTE | 2020-04-26 10:52 | Nephrology Progress Note ---
Assessment/Plan Problem List: (1) MALCOM (acute kidney injury) (2) COVID-19 (3) Diarrhea (4) Cocaine abuse Assessment Acute renal failure, possible underlying chronic kidney failure Dehydration COVID-19 infection Lower lung patchy infiltrate Diarrhea Cocaine use Mild anemia Plan April 26: Serum creatinine now 1.3 normal. Blood pressure stable. Stable from renal standpoint of view. April 25: Serum creatinine 1.4. Blood pressure stable. Medication list reviewed. Stable from renal standpoint of view. April 24: Serum creatinine is down to 1.5. Urine positive for cocaine. Continue per consultants. April 23: Stop ibuprofen IV fluids Avoid nephrotoxic's Monitor renal parameters Per consultants / ID HIV screen Subjective ROS Limited/Unobtainable: No Constitutional: Reports: malaise Objective Objective Last 24 Hour Vital Signs Date Time Temp Pulse Resp B/P (MAP) Pulse Ox O2 Delivery O2 Flow Rate FiO2 04/26/20 08:04 Room Air 04/26/20 07:38 96.7 60 22 154/88 (110) 93 04/26/20 04:00 97.9 67 20 130/75 (93) 98 04/26/20 00:00 98.8 60 20 128/71 (90) 98 04/25/20 21:00 Room Air 04/25/20 19:52 98.4 61 19 144/80 (101) 95 04/25/20 16:00 98.8 61 19 145/76 (99) 95 04/25/20 12:00 99.0 64 18 151/66 (94) 95 Intake and Output 04/25/20 04/26/20 19:00 07:00 Intake Total 1100 ml Output Total 1000 ml 800 ml Balance 100 ml -800 ml Intake Oral 800 ml IV Total 300 ml Output Urine Total 1000 ml 800 ml Laboratory Tests 04/26/20 04:10: White Blood Count 6.9, Red Blood Count 4.33L, Hemoglobin 12.9L, Hematocrit 38.4L , Mean Corpuscular Volume 89, Mean Corpuscular Hemoglobin 29.9, Mean Corpuscular Hemoglobin Concent 33.7, Red Cell Distribution Width 11.3L, Platelet Count 206, Mean Platelet Volume 7.9, Neutrophils (%) (Auto) 65.0, Lymphocytes (%) (Auto) 25.6, Monocytes (%) (Auto) 8.4, Eosinophils (%) (Auto) 0.4, Basophils (%) (Auto) 0.6, Sodium Level 141, Potassium Level 3.8, Chloride Level 108H, Carbon Dioxide Level 22, Anion Gap 11, Blood Urea Nitrogen 15, Creatinine 1.3, Estimat Glomerular Filtration Rate > 60, Glucose Level 87, Calcium Level 8.4L, Ferritin 411H, C-Reactive Protein, Quantitative 2.2H Height (Feet): 5 Height (Inches): 11.00 Weight (Pounds): 155 General Appearance: no apparent distress Cardiovascular: normal rate Respiratory/Chest: decreased breath sounds Abdomen: soft Objective No change Nelson Dalal MD Apr 26, 2020 10:52
[2020-04-26 11:51] VITALS: BP 149/80
--- NOTE | 2020-04-26 12:36 | Diagnostic Imaging Report ---
Indication: Cough Technique: One view of the chest Comparison: 04/24/2020 Findings: Bilateral infiltrates at the lung bases appear slightly worse. There is increased obscuration of left hemidiaphragm, may be from worsening infiltrate but also reflect increased pleural fluid the heart size is normal. The aorta is tortuous and ectatic. Mediastinum is unremarkable. Impression: Worsening bilateral lower lung infiltrates, over 2 days
--- NOTE | 2020-04-26 12:56 | Surgery Progress Note ---
Surgery Progress Note Subjective Additional Comments no acute events labs noted exam stable Objective Last 24 Hour Vital Signs Date Time Temp Pulse Resp B/P (MAP) Pulse Ox O2 Delivery O2 Flow Rate FiO2 04/26/20 11:51 98.1 64 19 149/80 (103) 97 04/26/20 08:04 Room Air 04/26/20 07:38 96.7 60 22 154/88 (110) 93 04/26/20 04:00 97.9 67 20 130/75 (93) 98 04/26/20 00:00 98.8 60 20 128/71 (90) 98 04/25/20 21:00 Room Air 04/25/20 19:52 98.4 61 19 144/80 (101) 95 04/25/20 16:00 98.8 61 19 145/76 (99) 95 I&O Intake and Output 04/25/20 04/26/20 19:00 07:00 Intake Total 1100 ml Output Total 1000 ml 800 ml Balance 100 ml -800 ml Intake Oral 800 ml IV Total 300 ml Output Urine Total 1000 ml 800 ml Dressing: other Wound: other Cardiovascular: RSR Respiratory: decreased breath sounds Abdomen: soft, non-tender, present bowel sounds Extremities: no tenderness, no cyanosis Laboratory Tests Test 04/26/20 04:10 White Blood Count 6.9 K/UL (4.8-10.8) Red Blood Count 4.33 M/UL (4.70-6.10) L Hemoglobin 12.9 G/DL (14.2-18.0) L Hematocrit 38.4 % (42.0-52.0) L Mean Corpuscular Volume 89 FL (80-99) Mean Corpuscular Hemoglobin 29.9 PG (27.0-31.0) Mean Corpuscular Hemoglobin Concent 33.7 G/DL (32.0-36.0) Red Cell Distribution Width 11.3 % (11.6-14.8) L Platelet Count 206 K/UL (150-450) Mean Platelet Volume 7.9 FL (6.5-10.1) Neutrophils (%) (Auto) 65.0 % (45.0-75.0) Lymphocytes (%) (Auto) 25.6 % (20.0-45.0) Monocytes (%) (Auto) 8.4 % (1.0-10.0) Eosinophils (%) (Auto) 0.4 % (0.0-3.0) Basophils (%) (Auto) 0.6 % (0.0-2.0) Sodium Level 141 MMOL/L (136-145) Potassium Level 3.8 MMOL/L (3.5-5.1) Chloride Level 108 MMOL/L (98-107) H Carbon Dioxide Level 22 MMOL/L (21-32) Anion Gap 11 mmol/L (5-15) Blood Urea Nitrogen 15 mg/dL (7-18) Creatinine 1.3 MG/DL (0.55-1.30) Estimat Glomerular Filtration Rate > 60 mL/min (>60) Glucose Level 87 MG/DL (74-106) Calcium Level 8.4 MG/DL (8.5-10.1) L Ferritin 411 NG/ML (8-388) H C-Reactive Protein, Quantitative 2.2 mg/dL (0.00-0.90) H Plan Problems: (1) ARF (acute renal failure) (2) Episode of generalized weakness (3) Cocaine abuse (4) Diarrhea Assessment & Plan: 64M diarrhea improving okay for diet exam stable no acute surgical intervention at this time kub ordered thank you responded well to Imodium (5) COVID-19 Assessment & Plan: + appreciate ID input (6) Dental abscess (7) Dental abscess (8) Hernia (9) MALCOM (acute kidney injury) Jose Delgadillo Apr 26, 2020 12:56
[2020-04-26] MEDS: cefTRIAXone 1 GM in D5W 50 ML IVPB SCH (14:00)
--- NOTE | 2020-04-26 15:29 | Infectious Diseases Prog Note ---
Assessment/Plan Assessment/Plan ASSESSMENT AND PLAN: 1. covid-19 infection with pna, ? CAP, fevers - ceftriaxone and azithromycin - day # 4/7 - f/u labs and chest x-ray as indicated - clinically better, fevers resolved 2. Elevated creatinine, possible chronic kidney disease. 3. Anemia, mild. 4. No history of diabetes or hypertension. 5. No history of cancer. 6. Allergies are negative. 7. Social history is positive for cocaine use in the past. 8. Family history is noncontributory. 9. MAR is noted. 10. Case is discussed with RN. 11. Continue treatment per primary consultants. Subjective Constitutional: Reports: fatigue, other - feels better ; Denies: fever HEENT: Reports: congestion - less Respiratory: Reports: shortness of breath - less Cardiovascular: Denies: chest pain Gastrointestinal/Abdominal: Denies: nausea, vomiting, diarrhea Genitourinary: Denies: dysuria, hematuria, frequency Neurologic: Denies: headache Psychiatric: Denies: depression Skin: Denies: rash Hematologic: Denies: bleeding Musculoskeletal: Denies: pain Allergies: Coded Allergies: No Known Allergies (Unverified , 03/17/15) Objective Last 24 Hour Vital Signs Date Time Temp Pulse Resp B/P (MAP) Pulse Ox O2 Delivery O2 Flow Rate FiO2 04/26/20 11:51 98.1 64 19 149/80 (103) 97 04/26/20 08:04 Room Air 04/26/20 07:38 96.7 60 22 154/88 (110) 93 04/26/20 04:00 97.9 67 20 130/75 (93) 98 04/26/20 00:00 98.8 60 20 128/71 (90) 98 04/25/20 21:00 Room Air 04/25/20 19:52 98.4 61 19 144/80 (101) 95 04/25/20 16:00 98.8 61 19 145/76 (99) 95 Height (Feet): 5 Height (Inches): 11.00 Weight (Pounds): 155 General Appearance: no acute distress HEENT: normocephalic, atraumatic Respiratory/Chest: crackles/rales, rhonchi - bilaterally Cardiovascular: normal rate, regular rhythm, no gallop/murmur Abdomen: normal bowel sounds, soft, non tender, no organomegaly, non distended Genitourinary: other - no gutiérrez Extremities: no cyanosis Skin: no rash Neurologic/Psychiatric: expressive music therapist II-XII grossly normal, alert, oriented x 3, responsive Lymphatic: no neck adenopathy Musculoskeletal: no effusion Chest x-ray - 04/2620 - Procedure: XRAY Chest 1v Indication: Cough Technique: One view of the chest Comparison: 04/24/2020 Findings: Bilateral infiltrates at the lung bases appear slightly worse. There is increased obscuration of left hemidiaphragm, may be from worsening infiltrate but also reflect increased pleural fluid the heart size is normal. The aorta is tortuous and ectatic. Mediastinum is unremarkable. Impression: Worsening bilateral lower lung infiltrates, over 2 days Laboratory Tests Test 04/26/20 04:10 White Blood Count 6.9 K/UL (4.8-10.8) Red Blood Count 4.33 M/UL (4.70-6.10) L Hemoglobin 12.9 G/DL (14.2-18.0) L Hematocrit 38.4 % (42.0-52.0) L Mean Corpuscular Volume 89 FL (80-99) Mean Corpuscular Hemoglobin 29.9 PG (27.0-31.0) Mean Corpuscular Hemoglobin Concent 33.7 G/DL (32.0-36.0) Red Cell Distribution Width 11.3 % (11.6-14.8) L Platelet Count 206 K/UL (150-450) Mean Platelet Volume 7.9 FL (6.5-10.1) Neutrophils (%) (Auto) 65.0 % (45.0-75.0) Lymphocytes (%) (Auto) 25.6 % (20.0-45.0) Monocytes (%) (Auto) 8.4 % (1.0-10.0) Eosinophils (%) (Auto) 0.4 % (0.0-3.0) Basophils (%) (Auto) 0.6 % (0.0-2.0) Sodium Level 141 MMOL/L (136-145) Potassium Level 3.8 MMOL/L (3.5-5.1) Chloride Level 108 MMOL/L (98-107) H Carbon Dioxide Level 22 MMOL/L (21-32) Anion Gap 11 mmol/L (5-15) Blood Urea Nitrogen 15 mg/dL (7-18) Creatinine 1.3 MG/DL (0.55-1.30) Estimat Glomerular Filtration Rate > 60 mL/min (>60) Glucose Level 87 MG/DL (74-106) Calcium Level 8.4 MG/DL (8.5-10.1) L Ferritin 411 NG/ML (8-388) H C-Reactive Protein, Quantitative 2.2 mg/dL (0.00-0.90) H Current Medications Medications (Trade) Dose Ordered Sig/Dagmar Route PRN Reason Start Time Stop Time Status Last Admin Dose Admin Acetaminophen (Tylenol) 650 mg Q4H PRN ORAL Mild Pain (Pain Scale 1-3) 04/22/20 19:30 05/22/20 19:29 04/24/20 17:00 Acetaminophen (Tylenol) 650 mg Q4H PRN ORAL Temp >100.5 04/24/20 17:30 05/24/20 17:29 Albuterol Sulfate (Proventil MDI) 2 puff Q4H PRN INH Shortness of Breath 04/23/20 09:00 07/22/20 08:59 Ascorbic Acid (Vitamin C) 500 mg TWICE A DAY ORAL 04/23/20 09:00 05/23/20 08:59 04/26/20 09:12 Azithromycin 250 mg/Dextrose 250 ml @ 250 mls/hr Q24HRS IV 04/23/20 16:00 04/28/20 15:59 04/25/20 15:53 Ceftriaxone Sodium 1 gm/ Dextrose 50 ml @ 100 mls/hr Q24H IVPB 04/23/20 14:00 04/30/20 13:59 04/26/20 14:00 Diphenhydramine HCl (Benadryl) 25 mg Q6H PRN IVP Itching 04/22/20 19:30 05/22/20 19:29 Enoxaparin Sodium (Lovenox) 40 mg DAILY SUBQ 04/23/20 09:00 07/22/20 08:59 04/26/20 09:18 Loperamide HCl (Imodium) 2 mg Q6H PRN NG Diarrhea 04/23/20 09:00 05/23/20 08:59 Ondansetron HCl (Zofran) 4 mg Q6H PRN IVP Nausea & Vomiting 04/22/20 19:30 05/22/20 19:29 Pantoprazole (Protonix) 40 mg EVERY 12 HOURS ORAL 04/23/20 21:00 05/23/20 20:59 04/26/20 09:12 Tamsulosin HCl (Flomax) 0.4 mg BID ORAL 04/23/20 09:00 05/23/20 08:59 04/26/20 09:12 Zinc Sulfate (Zinc Sulfate) 220 mg DAILY ORAL 04/23/20 09:00 07/22/20 08:59 04/26/20 09:12 Kristie Hugo MD Apr 26, 2020 15:29
[2020-04-26 16:00] VITALS: BP_SYST 129; BP_SYST 159; BP_DIAS 71; BP_DIAS 91
[2020-04-26 20:00] VITALS: BP 142/72
[2020-04-27] VITALS: BP 144/77
[2020-04-27 04:00] VITALS: BP 148/79
[2020-04-27 06:17] LABS: BASOPHILS % (AUTO) 0.9 % (0.0-2.0); EOSINOPHILS % (AUTO) 0.8 % (0.0-3.0); HEMATOCRIT 40.1 % (42.0-52.0); HEMOGLOBIN 13.4 G/DL (14.2-18.0); LYMPHOCYTES % (AUTO) 26.3 % (20.0-45.0); MEAN CORPUSCULAR VOLUME 89 FL (80-99); MONOCYTES % (AUTO) 10.5 % (1.0-10.0); NEUTROPHILS % (AUTO) 61.6 % (45.0-75.0); PLATELET COUNT 245 K/UL (150-450); RED BLOOD COUNT 4.52 M/UL (4.70-6.10); RED CELL DISTRIBUTION WIDTH 11.6 % (11.6-14.8); WHITE BLOOD COUNT 8.2 K/UL (4.8-10.8)
[2020-04-27 06:41] LABS: ANION GAP 10 mmol/L (5-15); BLOOD UREA NITROGEN 17 mg/dL (7-18); CALCIUM 8.7 MG/DL (8.5-10.1); CARBON DIOXIDE 23 MMOL/L (21-32); CHLORIDE 109 MMOL/L (98-107); CREATININE 1.4 MG/DL (0.55-1.30); POTASSIUM 4.3 MMOL/L (3.5-5.1); SODIUM 142 MMOL/L (136-145)
[2020-04-27 08:00] VITALS: BP 149/85
[2020-04-27] MEDS: Zinc Sulfate 220mg ORAL SCH (09:52)
[2020-04-27] MEDS: Tamsulosin 0.4mg cap ORAL SCH ×2 (09:53→18:10)
[2020-04-27] MEDS: Ascorbic Acid 500mg tab ORAL SCH ×2 (09:53→18:10)
[2020-04-27] MEDS: Enoxaparin 40mg Inj SUBQ SCH (09:54)
--- NOTE | 2020-04-27 11:50 | General Progress Note ---
Assessment/Plan Problem List: (1) Cocaine abuse ICD Codes: F14.10 - Cocaine abuse, uncomplicated SNOMED: 93189494 (2) COVID-19 ICD Codes: U07.1 - COVID-19 SNOMED: 839331610 (3) Diarrhea ICD Codes: R19.7 - Diarrhea, unspecified SNOMED: 38874809 Qualifiers: Qualified Codes: R19.7 - Diarrhea, unspecified Assessment/Plan: pulm care good response to Imodium fu labs on reg diet Subjective ROS Limited/Unobtainable: Yes Allergies: Coded Allergies: No Known Allergies (Unverified , 03/17/15) Objective Last 24 Hour Vital Signs Date Time Temp Pulse Resp B/P (MAP) Pulse Ox O2 Delivery O2 Flow Rate FiO2 04/27/20 08:00 98.1 59 20 149/85 (106) 94 04/27/20 04:00 98.0 59 20 148/79 (102) 98 04/27/20 00:00 98.1 57 20 144/77 (99) 94 04/26/20 21:00 Room Air 04/26/20 20:00 98.1 68 19 142/72 (95) 94 04/26/20 16:00 99.1 65 18 159/91 (113) 96 04/26/20 11:51 98.1 64 19 149/80 (103) 97 Intake and Output 04/26/20 04/27/20 19:00 07:00 Intake Total 850 ml 360 ml Output Total 1200 ml 800 ml Balance -350 ml -440 ml Intake Oral 850 ml 360 ml Output Urine Total 1200 ml 800 ml Laboratory Tests 04/27/20 04:20: White Blood Count 8.2, Red Blood Count 4.52L, Hemoglobin 13.4L, Hematocrit 40.1L , Mean Corpuscular Volume 89, Mean Corpuscular Hemoglobin 29.7, Mean Corpuscular Hemoglobin Concent 33.5, Red Cell Distribution Width 11.6, Platelet Count 245, Mean Platelet Volume 6.9, Neutrophils (%) (Auto) 61.6, Lymphocytes (% ) (Auto) 26.3, Monocytes (%) (Auto) 10.5H, Eosinophils (%) (Auto) 0.8, Basophils (%) (Auto) 0.9, Sodium Level 142, Potassium Level 4.3, Chloride Level 109H, Carbon Dioxide Level 23, Anion Gap 10, Blood Urea Nitrogen 17, Creatinine 1.4H, Estimat Glomerular Filtration Rate > 60, Glucose Level 86, Calcium Level 8.7 Height (Feet): 5 Height (Inches): 11.00 Weight (Pounds): 155 General Appearance: no apparent distress EENT: PERRL/EOMI Neck: supple Cardiovascular: normal rate Respiratory/Chest: decreased breath sounds Abdomen: normal bowel sounds, non tender, soft Extremities: non-tender Pramod Torres MD Apr 27, 2020 11:50
[2020-04-27 12:00] VITALS: BP 141/81
--- NOTE | 2020-04-27 13:37 | Surgery Progress Note ---
Surgery Progress Note Subjective Additional Comments no acute events states feels better improved no n/v/f/c Objective Last 24 Hour Vital Signs Date Time Temp Pulse Resp B/P (MAP) Pulse Ox O2 Delivery O2 Flow Rate FiO2 04/27/20 08:00 98.1 59 20 149/85 (106) 94 04/27/20 04:00 98.0 59 20 148/79 (102) 98 04/27/20 00:00 98.1 57 20 144/77 (99) 94 04/26/20 21:00 Room Air 04/26/20 20:00 98.1 68 19 142/72 (95) 94 04/26/20 16:00 99.1 65 18 159/91 (113) 96 I&O Intake and Output 04/26/20 04/27/20 19:00 07:00 Intake Total 850 ml 360 ml Output Total 1200 ml 800 ml Balance -350 ml -440 ml Intake Oral 850 ml 360 ml Output Urine Total 1200 ml 800 ml Dressing: other Wound: other Drains: other Cardiovascular: RSR Respiratory: decreased breath sounds Abdomen: soft, non-tender, present bowel sounds, non-distended Extremities: no edema, no tenderness, no cyanosis Laboratory Tests Test 04/27/20 04:20 White Blood Count 8.2 K/UL (4.8-10.8) Red Blood Count 4.52 M/UL (4.70-6.10) L Hemoglobin 13.4 G/DL (14.2-18.0) L Hematocrit 40.1 % (42.0-52.0) L Mean Corpuscular Volume 89 FL (80-99) Mean Corpuscular Hemoglobin 29.7 PG (27.0-31.0) Mean Corpuscular Hemoglobin Concent 33.5 G/DL (32.0-36.0) Red Cell Distribution Width 11.6 % (11.6-14.8) Platelet Count 245 K/UL (150-450) Mean Platelet Volume 6.9 FL (6.5-10.1) Neutrophils (%) (Auto) 61.6 % (45.0-75.0) Lymphocytes (%) (Auto) 26.3 % (20.0-45.0) Monocytes (%) (Auto) 10.5 % (1.0-10.0) H Eosinophils (%) (Auto) 0.8 % (0.0-3.0) Basophils (%) (Auto) 0.9 % (0.0-2.0) Sodium Level 142 MMOL/L (136-145) Potassium Level 4.3 MMOL/L (3.5-5.1) Chloride Level 109 MMOL/L (98-107) H Carbon Dioxide Level 23 MMOL/L (21-32) Anion Gap 10 mmol/L (5-15) Blood Urea Nitrogen 17 mg/dL (7-18) Creatinine 1.4 MG/DL (0.55-1.30) H Estimat Glomerular Filtration Rate > 60 mL/min (>60) Glucose Level 86 MG/DL (74-106) Calcium Level 8.7 MG/DL (8.5-10.1) Plan Problems: (1) ARF (acute renal failure) (2) Episode of generalized weakness (3) Cocaine abuse (4) Diarrhea Assessment & Plan: 64M diarrhea improving okay for diet exam stable no acute surgical intervention at this time kub ordered thank you responded well to Imodium comfortable no complaints no n/v/f/c states feels well (5) COVID-19 Assessment & Plan: + appreciate ID input improving (6) Dental abscess (7) Dental abscess (8) Hernia (9) MALCOM (acute kidney injury) Jose Delgadillo Apr 27, 2020 13:37
--- NOTE | 2020-04-27 14:18 | Nephrology Progress Note ---
Assessment/Plan Problem List: (1) MALCOM (acute kidney injury) (2) COVID-19 (3) Diarrhea (4) Cocaine abuse Assessment Acute renal failure, possible underlying chronic kidney failure Dehydration COVID-19 infection Lower lung patchy infiltrate Diarrhea Cocaine use Mild anemia Plan April 27: Serum creatinine 1.4. Stable blood pressure. Stable from renal standpoint of view. April 26: Serum creatinine now 1.3 normal. Blood pressure stable. Stable from renal standpoint of view. April 25: Serum creatinine 1.4. Blood pressure stable. Medication list reviewed. Stable from renal standpoint of view. April 24: Serum creatinine is down to 1.5. Urine positive for cocaine. Continue per consultants. April 23: Stop ibuprofen IV fluids Avoid nephrotoxic's Monitor renal parameters Per consultants / ID HIV screen Subjective ROS Limited/Unobtainable: No Constitutional: Reports: malaise Objective Objective Last 24 Hour Vital Signs Date Time Temp Pulse Resp B/P (MAP) Pulse Ox O2 Delivery O2 Flow Rate FiO2 04/27/20 12:00 97.2 59 18 141/81 (101) 94 04/27/20 09:00 Room Air 04/27/20 08:00 98.1 59 20 149/85 (106) 94 04/27/20 04:00 98.0 59 20 148/79 (102) 98 04/27/20 00:00 98.1 57 20 144/77 (99) 94 04/26/20 21:00 Room Air 04/26/20 20:00 98.1 68 19 142/72 (95) 94 04/26/20 16:00 99.1 65 18 159/91 (113) 96 Intake and Output 04/26/20 04/27/20 18:59 06:59 Intake Total 850 ml 360 ml Output Total 1200 ml 800 ml Balance -350 ml -440 ml Intake Oral 850 ml 360 ml Output Urine Total 1200 ml 800 ml Laboratory Tests 04/27/20 04:20: White Blood Count 8.2, Red Blood Count 4.52L, Hemoglobin 13.4L, Hematocrit 40.1L , Mean Corpuscular Volume 89, Mean Corpuscular Hemoglobin 29.7, Mean Corpuscular Hemoglobin Concent 33.5, Red Cell Distribution Width 11.6, Platelet Count 245, Mean Platelet Volume 6.9, Neutrophils (%) (Auto) 61.6, Lymphocytes (% ) (Auto) 26.3, Monocytes (%) (Auto) 10.5H, Eosinophils (%) (Auto) 0.8, Basophils (%) (Auto) 0.9, Sodium Level 142, Potassium Level 4.3, Chloride Level 109H, Carbon Dioxide Level 23, Anion Gap 10, Blood Urea Nitrogen 17, Creatinine 1.4H, Estimat Glomerular Filtration Rate > 60, Glucose Level 86, Calcium Level 8.7 Height (Feet): 5 Height (Inches): 11.00 Weight (Pounds): 155 General Appearance: no apparent distress Cardiovascular: normal rate Respiratory/Chest: decreased breath sounds Abdomen: soft Objective No change Nelson Dalal MD Apr 27, 2020 14:18
--- NOTE | 2020-04-27 14:23 | Pulmonology Progress Note ---
Ana Keller CHOIR DIRECTOR 04/27/20 1423: Subjective ROS Limited/Unobtainable: No Constitutional: Reports: fatigue, other - feels better ; Denies: fever Gastrointestinal/Abdominal: Denies: nausea, vomiting, diarrhea Psychiatric: Denies: depression Skin: Denies: rash Musculoskeletal: Denies: pain Allergies: Coded Allergies: No Known Allergies (Unverified , 03/17/15) Subjective day #5 isolation remains afebrile no resp distress pulse ox stable on RA no further fevers creat trending down denies CP, SOB diarrhea resolved CXR 04/26-> worsening bilateral lower lung infiltrates, over 2 days Objective Last 24 Hour Vital Signs Date Time Temp Pulse Resp B/P (MAP) Pulse Ox O2 Delivery O2 Flow Rate FiO2 04/27/20 12:00 97.2 59 18 141/81 (101) 94 04/27/20 09:00 Room Air 04/27/20 08:00 98.1 59 20 149/85 (106) 94 04/27/20 04:00 98.0 59 20 148/79 (102) 98 04/27/20 00:00 98.1 57 20 144/77 (99) 94 04/26/20 21:00 Room Air 04/26/20 20:00 98.1 68 19 142/72 (95) 94 04/26/20 16:00 99.1 65 18 159/91 (113) 96 Intake and Output 04/26/20 04/27/20 19:00 07:00 Intake Total 850 ml 360 ml Output Total 1200 ml 800 ml Balance -350 ml -440 ml Intake Oral 850 ml 360 ml Output Urine Total 1200 ml 800 ml Objective General Appearance: no apparent distress, alert Lines, tubes and drains: peripheral HEENT: normocephalic, atraumatic, anicteric, mucous membranes moist Neck: supple Respiratory/Chest: chest wall non-tender, lungs clear, no respiratory distress , no accessory muscle use Cardiovascular/Chest: normal rate Abdomen: normal bowel sounds, non tender, soft Extremities: normal range of motion, no calf tenderness, normal capillary refill Skin Exam: normal pigmentation, warm/dry Neurologic: no motor/sensory deficits, alert, responsive Musculoskeletal: normal muscle bulk Laboratory Tests 04/27/20 04:20: White Blood Count 8.2, Red Blood Count 4.52L, Hemoglobin 13.4L, Hematocrit 40.1L , Mean Corpuscular Volume 89, Mean Corpuscular Hemoglobin 29.7, Mean Corpuscular Hemoglobin Concent 33.5, Red Cell Distribution Width 11.6, Platelet Count 245, Mean Platelet Volume 6.9, Neutrophils (%) (Auto) 61.6, Lymphocytes (% ) (Auto) 26.3, Monocytes (%) (Auto) 10.5H, Eosinophils (%) (Auto) 0.8, Basophils (%) (Auto) 0.9, Sodium Level 142, Potassium Level 4.3, Chloride Level 109H, Carbon Dioxide Level 23, Anion Gap 10, Blood Urea Nitrogen 17, Creatinine 1.4H, Estimat Glomerular Filtration Rate > 60, Glucose Level 86, Calcium Level 8.7 Current Medications Medications (Trade) Dose Ordered Sig/Dagmar Route PRN Reason Start Time Stop Time Status Last Admin Dose Admin Acetaminophen (Tylenol) 650 mg Q4H PRN ORAL Mild Pain (Pain Scale 1-3) 04/22/20 19:30 05/22/20 19:29 04/26/20 20:11 Acetaminophen (Tylenol) 650 mg Q4H PRN ORAL Temp >100.5 04/24/20 17:30 05/24/20 17:29 Albuterol Sulfate (Proventil MDI) 2 puff Q4H PRN INH Shortness of Breath 04/23/20 09:00 07/22/20 08:59 Ascorbic Acid (Vitamin C) 500 mg TWICE A DAY ORAL 04/23/20 09:00 05/23/20 08:59 04/27/20 09:53 Azithromycin 250 mg/Dextrose 250 ml @ 250 mls/hr Q24HRS IV 04/23/20 16:00 04/28/20 15:59 04/26/20 16:35 Ceftriaxone Sodium 1 gm/ Dextrose 50 ml @ 100 mls/hr Q24H IVPB 04/23/20 14:00 04/30/20 13:59 04/26/20 14:00 Diphenhydramine HCl (Benadryl) 25 mg Q6H PRN IVP Itching 04/22/20 19:30 05/22/20 19:29 Enoxaparin Sodium (Lovenox) 40 mg DAILY SUBQ 04/23/20 09:00 07/22/20 08:59 04/27/20 09:54 Loperamide HCl (Imodium) 2 mg Q6H PRN NG Diarrhea 04/23/20 09:00 05/23/20 08:59 Ondansetron HCl (Zofran) 4 mg Q6H PRN IVP Nausea & Vomiting 04/22/20 19:30 05/22/20 19:29 Pantoprazole (Protonix) 40 mg EVERY 12 HOURS ORAL 04/23/20 21:00 05/23/20 20:59 04/27/20 09:52 Tamsulosin HCl (Flomax) 0.4 mg BID ORAL 04/23/20 09:00 05/23/20 08:59 04/27/20 09:53 Zinc Sulfate (Zinc Sulfate) 220 mg DAILY ORAL 04/23/20 09:00 07/22/20 08:59 04/27/20 09:52 Assessment/Plan Assessment/Plan ASSESSMENT COVID 19 PNA ARF possibly on CKD Diarrhea Generalized weakness Cocaine abuse Homeless PLAN OF CARE MS floor isolation day #5 supplemetnal O to keep sat >90% Albuterol MDI prn on abx per ID recs-> Ceftriaxone and Azithromycin hold steroids and Remdesivir given pulse ox stable on RA fup CXR 04/26 -> worsening bilateral lower lung infiltrates, over 2 days resp status however remains stable, on RA, no SOB, no distress, no fevers, monitor closely a/c with Lovenox Venous Duplex BLE check IL-6 -49.5 inflammatory markers not quite impressive to show risk for cytokine storm: ferritin 456->414->411 CRP 3.8 ->3.5->2.2 LDH 252, D dimer 2.06 vit C and zinc BCX 04/22 NGTD dc IVF, renal US monitor renal parameters, lytes, correct lytes as needed avoid nephrotoxics nephro follows creat trending down diarrhea improved with Imodium stool C dif if diarrhea persist consider Lactobacillus HIV nonreactive urine tox + 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 Agree with above A&P as it reflects our joint deliberations. Problem List: COVID19 PNA +/- CAP Diarrhea MALCOM Elevated D-Dimer Plan: * Monitor oxygenation closely, currently room air * hold remdesivir/decadron while tolerating room air * trend CRP and ferritin daily * abx per ID * monitor renal function * DVT PPx: LMWH Ana Keller NP Apr 27, 2020 14:23 Rasta Sutherland MD Apr 27, 2020 21:13
[2020-04-27 16:00] VITALS: BP 150/78
[2020-04-27] MEDS: cefTRIAXone 1 GM in D5W 50 ML IVPB SCH (16:44)
[2020-04-27 20:00] VITALS: BP 157/74
[2020-04-28] VITALS (7 sets, daily range): BP systolic 134–157; BP diastolic 67–81
[2020-04-28 07:16] LABS: BASOPHILS % (AUTO) 1.3 % (0.0-2.0); EOSINOPHILS % (AUTO) 1.2 % (0.0-3.0); HEMATOCRIT 38.3 % (42.0-52.0); LYMPHOCYTES % (AUTO) 25.8 % (20.0-45.0); MEAN CORPUSCULAR VOLUME 88 FL (80-99); MONOCYTES % (AUTO) 8.8 % (1.0-10.0); NEUTROPHILS % (AUTO) 62.9 % (45.0-75.0); PLATELET COUNT 280 K/UL (150-450); RED BLOOD COUNT 4.34 M/UL (4.70-6.10); RED CELL DISTRIBUTION WIDTH 11.5 % (11.6-14.8); WHITE BLOOD COUNT 8.4 K/UL (4.8-10.8)
[2020-04-28 07:35] LABS: ANION GAP 10 mmol/L (5-15); BLOOD UREA NITROGEN 18 mg/dL (7-18); CALCIUM 8.4 MG/DL (8.5-10.1); CARBON DIOXIDE 23 MMOL/L (21-32); CHLORIDE 108 MMOL/L (98-107); CREATININE 1.3 MG/DL (0.55-1.30); POTASSIUM 4.1 MMOL/L (3.5-5.1); SODIUM 141 MMOL/L (136-145)
[2020-04-28] MEDS: Tamsulosin 0.4mg cap ORAL SCH ×2 (08:33→17:33)
[2020-04-28] MEDS: Ascorbic Acid 500mg tab ORAL SCH ×2 (08:33→17:33)
[2020-04-28] MEDS: Zinc Sulfate 220mg ORAL SCH (08:33)
[2020-04-28] MEDS: Enoxaparin 40mg Inj SUBQ SCH (08:34)
--- NOTE | 2020-04-28 08:56 | General Progress Note ---
Assessment/Plan Problem List: (1) Cocaine abuse ICD Codes: F14.10 - Cocaine abuse, uncomplicated SNOMED: 59689251 (2) COVID-19 ICD Codes: U07.1 - COVID-19 SNOMED: 491430876 (3) Diarrhea ICD Codes: R19.7 - Diarrhea, unspecified SNOMED: 14996997 Qualifiers: Qualified Codes: R19.7 - Diarrhea, unspecified Assessment/Plan: pulm care good response to Imodium fu labs on reg diet Subjective Allergies: Coded Allergies: No Known Allergies (Unverified , 03/17/15) Objective Last 24 Hour Vital Signs Date Time Temp Pulse Resp B/P (MAP) Pulse Ox O2 Delivery O2 Flow Rate FiO2 04/28/20 08:00 98.1 65 20 157/67 (97) 94 04/28/20 04:00 98.1 61 19 147/81 (103) 95 04/28/20 00:00 98.6 72 19 134/78 (96) 95 04/27/20 21:00 Room Air 04/27/20 20:00 98.1 63 19 157/74 (101) 96 04/27/20 16:00 98.6 62 20 150/78 (102) 96 04/27/20 12:00 97.2 59 18 141/81 (101) 94 04/27/20 09:00 Room Air Intake and Output 04/27/20 04/28/20 19:00 07:00 Intake Total 1000 ml 250 ml Output Total 1800 ml 2400 ml Balance -800 ml -2150 ml Intake Oral 1000 ml IV Total 250 ml Output Urine Total 1800 ml 2400 ml # Voids 2 3 Laboratory Tests 04/28/20 06:00: White Blood Count 8.4, Red Blood Count 4.34L, Hemoglobin 13.0L, Hematocrit 38.3L , Mean Corpuscular Volume 88, Mean Corpuscular Hemoglobin 29.9, Mean Corpuscular Hemoglobin Concent 33.9, Red Cell Distribution Width 11.5L, Platelet Count 280, Mean Platelet Volume 7.2, Neutrophils (%) (Auto) 62.9, Lymphocytes (%) (Auto) 25.8, Monocytes (%) (Auto) 8.8, Eosinophils (%) (Auto) 1.2, Basophils (%) (Auto) 1.3, Sodium Level 141, Potassium Level 4.1, Chloride Level 108H, Carbon Dioxide Level 23, Anion Gap 10, Blood Urea Nitrogen 18, Creatinine 1.3, Estimat Glomerular Filtration Rate > 60, Glucose Level 89, Calcium Level 8.4L Height (Feet): 5 Height (Inches): 11.00 Weight (Pounds): 155 General Appearance: no apparent distress EENT: normal ENT inspection Neck: supple Cardiovascular: normal rate Respiratory/Chest: decreased breath sounds Abdomen: normal bowel sounds, non tender, soft Extremities: non-tender Pramod Torres MD Apr 28, 2020 08:55
--- NOTE | 2020-04-28 11:01 | Nephrology Progress Note ---
Assessment/Plan Problem List: (1) MALCOM (acute kidney injury) (2) COVID-19 (3) Diarrhea (4) Cocaine abuse Assessment Acute renal failure, possible underlying chronic kidney failure Dehydration COVID-19 infection Lower lung patchy infiltrate Diarrhea Cocaine use Mild anemia Plan April 28: Renal parameters stable. Blood pressure is stable. No renal issues. Continue per consultants. April 27: Serum creatinine 1.4. Stable blood pressure. Stable from renal standpoint of view. April 26: Serum creatinine now 1.3 normal. Blood pressure stable. Stable from renal standpoint of view. April 25: Serum creatinine 1.4. Blood pressure stable. Medication list reviewed. Stable from renal standpoint of view. April 24: Serum creatinine is down to 1.5. Urine positive for cocaine. Continue per consultants. April 23: Stop ibuprofen IV fluids Avoid nephrotoxic's Monitor renal parameters Per consultants / ID HIV screen Subjective ROS Limited/Unobtainable: No - Normal Objective Objective Last 24 Hour Vital Signs Date Time Temp Pulse Resp B/P (MAP) Pulse Ox O2 Delivery O2 Flow Rate FiO2 04/28/20 09:00 Room Air 04/28/20 08:00 98.1 65 20 157/67 (97) 94 04/28/20 04:00 98.1 61 19 147/81 (103) 95 04/28/20 00:00 98.6 72 19 134/78 (96) 95 04/27/20 21:00 Room Air 04/27/20 20:00 98.1 63 19 157/74 (101) 96 04/27/20 16:00 98.6 62 20 150/78 (102) 96 04/27/20 12:00 97.2 59 18 141/81 (101) 94 Intake and Output 04/27/20 04/28/20 19:00 07:00 Intake Total 1000 ml 250 ml Output Total 1800 ml 2400 ml Balance -800 ml -2150 ml Intake Oral 1000 ml IV Total 250 ml Output Urine Total 1800 ml 2400 ml # Voids 2 3 Current Medications Medications (Trade) Dose Ordered Sig/Dagmar Route PRN Reason Start Time Stop Time Status Last Admin Dose Admin Acetaminophen (Tylenol) 650 mg Q4H PRN ORAL Mild Pain (Pain Scale 1-3) 04/22/20 19:30 05/22/20 19:29 04/26/20 20:11 Acetaminophen (Tylenol) 650 mg Q4H PRN ORAL Temp >100.5 04/24/20 17:30 05/24/20 17:29 Albuterol Sulfate (Proventil MDI) 2 puff Q4H PRN INH Shortness of Breath 04/23/20 09:00 07/22/20 08:59 Ascorbic Acid (Vitamin C) 500 mg TWICE A DAY ORAL 04/23/20 09:00 05/23/20 08:59 04/28/20 08:33 Azithromycin 250 mg/Dextrose 250 ml @ 250 mls/hr Q24HRS IV 04/23/20 16:00 04/28/20 15:59 04/27/20 18:09 Ceftriaxone Sodium 1 gm/ Dextrose 50 ml @ 100 mls/hr Q24H IVPB 04/23/20 14:00 04/30/20 13:59 04/27/20 16:44 Diphenhydramine HCl (Benadryl) 25 mg Q6H PRN IVP Itching 04/22/20 19:30 05/22/20 19:29 Enoxaparin Sodium (Lovenox) 40 mg DAILY SUBQ 04/23/20 09:00 07/22/20 08:59 04/28/20 08:34 Loperamide HCl (Imodium) 2 mg Q6H PRN NG Diarrhea 04/23/20 09:00 05/23/20 08:59 Ondansetron HCl (Zofran) 4 mg Q6H PRN IVP Nausea & Vomiting 04/22/20 19:30 05/22/20 19:29 Pantoprazole (Protonix) 40 mg EVERY 12 HOURS ORAL 04/23/20 21:00 05/23/20 20:59 04/28/20 08:33 Tamsulosin HCl (Flomax) 0.4 mg BID ORAL 04/23/20 09:00 05/23/20 08:59 04/28/20 08:33 Zinc Sulfate (Zinc Sulfate) 220 mg DAILY ORAL 04/23/20 09:00 07/22/20 08:59 04/28/20 08:33 Laboratory Tests 04/28/20 06:00: White Blood Count 8.4, Red Blood Count 4.34L, Hemoglobin 13.0L, Hematocrit 38.3L , Mean Corpuscular Volume 88, Mean Corpuscular Hemoglobin 29.9, Mean Corpuscular Hemoglobin Concent 33.9, Red Cell Distribution Width 11.5L, Platelet Count 280, Mean Platelet Volume 7.2, Neutrophils (%) (Auto) 62.9, Lymphocytes (%) (Auto) 25.8, Monocytes (%) (Auto) 8.8, Eosinophils (%) (Auto) 1.2, Basophils (%) (Auto) 1.3, Sodium Level 141, Potassium Level 4.1, Chloride Level 108H, Carbon Dioxide Level 23, Anion Gap 10, Blood Urea Nitrogen 18, Creatinine 1.3, Estimat Glomerular Filtration Rate > 60, Glucose Level 89, Calcium Level 8.4L Height (Feet): 5 Height (Inches): 11.00 Weight (Pounds): 155 General Appearance: no apparent distress Objective No change Nelson Dalal MD Apr 28, 2020 11:01
--- NOTE | 2020-04-28 11:25 | Pulmonology Progress Note ---
Ana Keller RN ADMISSION 04/28/20 1125: Subjective ROS Limited/Unobtainable: No - Normal Psychiatric: Denies: depression Allergies: Coded Allergies: No Known Allergies (Unverified , 03/17/15) Subjective day #6 isolation remains afebrile no resp distress pulse ox stable on RA no further fevers creat trending down denies CP, SOB , palpitations no cough, no congestion, no sore throat diarrhea resolved CXR 04/26-> worsening bilateral lower lung infiltrates, over 2 days Objective Last 24 Hour Vital Signs Date Time Temp Pulse Resp B/P (MAP) Pulse Ox O2 Delivery O2 Flow Rate FiO2 04/28/20 09:00 Room Air 04/28/20 08:00 98.1 65 20 157/67 (97) 94 04/28/20 04:00 98.1 61 19 147/81 (103) 95 04/28/20 00:00 98.6 72 19 134/78 (96) 95 04/27/20 21:00 Room Air 04/27/20 20:00 98.1 63 19 157/74 (101) 96 04/27/20 16:00 98.6 62 20 150/78 (102) 96 04/27/20 12:00 97.2 59 18 141/81 (101) 94 Intake and Output 04/27/20 04/28/20 19:00 07:00 Intake Total 1000 ml 250 ml Output Total 1800 ml 2400 ml Balance -800 ml -2150 ml Intake Oral 1000 ml IV Total 250 ml Output Urine Total 1800 ml 2400 ml # Voids 2 3 Objective General Appearance: no apparent distress, alert Lines, tubes and drains: peripheral HEENT: normocephalic, atraumatic, anicteric, mucous membranes moist Neck: supple Respiratory/Chest: chest wall non-tender, lungs clear, no respiratory distress , no accessory muscle use Cardiovascular/Chest: normal rate Abdomen: normal bowel sounds, non tender, soft Extremities: normal range of motion, no calf tenderness, normal capillary refill Skin Exam: normal pigmentation, warm/dry Neurologic: no motor/sensory deficits, alert, responsive Musculoskeletal: normal muscle bulk Laboratory Tests 04/28/20 06:00: White Blood Count 8.4, Red Blood Count 4.34L, Hemoglobin 13.0L, Hematocrit 38.3L , Mean Corpuscular Volume 88, Mean Corpuscular Hemoglobin 29.9, Mean Corpuscular Hemoglobin Concent 33.9, Red Cell Distribution Width 11.5L, Platelet Count 280, Mean Platelet Volume 7.2, Neutrophils (%) (Auto) 62.9, Lymphocytes (%) (Auto) 25.8, Monocytes (%) (Auto) 8.8, Eosinophils (%) (Auto) 1.2, Basophils (%) (Auto) 1.3, Sodium Level 141, Potassium Level 4.1, Chloride Level 108H, Carbon Dioxide Level 23, Anion Gap 10, Blood Urea Nitrogen 18, Creatinine 1.3, Estimat Glomerular Filtration Rate > 60, Glucose Level 89, Calcium Level 8.4L Current Medications Medications (Trade) Dose Ordered Sig/Dagmar Route PRN Reason Start Time Stop Time Status Last Admin Dose Admin Acetaminophen (Tylenol) 650 mg Q4H PRN ORAL Mild Pain (Pain Scale 1-3) 04/22/20 19:30 05/22/20 19:29 04/26/20 20:11 Acetaminophen (Tylenol) 650 mg Q4H PRN ORAL Temp >100.5 04/24/20 17:30 05/24/20 17:29 Albuterol Sulfate (Proventil MDI) 2 puff Q4H PRN INH Shortness of Breath 04/23/20 09:00 07/22/20 08:59 Ascorbic Acid (Vitamin C) 500 mg TWICE A DAY ORAL 04/23/20 09:00 05/23/20 08:59 04/28/20 08:33 Azithromycin 250 mg/Dextrose 250 ml @ 250 mls/hr Q24HRS IV 04/23/20 16:00 04/28/20 15:59 04/27/20 18:09 Ceftriaxone Sodium 1 gm/ Dextrose 50 ml @ 100 mls/hr Q24H IVPB 04/23/20 14:00 04/30/20 13:59 04/27/20 16:44 Diphenhydramine HCl (Benadryl) 25 mg Q6H PRN IVP Itching 04/22/20 19:30 05/22/20 19:29 Enoxaparin Sodium (Lovenox) 40 mg DAILY SUBQ 04/23/20 09:00 07/22/20 08:59 04/28/20 08:34 Loperamide HCl (Imodium) 2 mg Q6H PRN NG Diarrhea 04/23/20 09:00 05/23/20 08:59 Ondansetron HCl (Zofran) 4 mg Q6H PRN IVP Nausea & Vomiting 04/22/20 19:30 05/22/20 19:29 Pantoprazole (Protonix) 40 mg EVERY 12 HOURS ORAL 04/23/20 21:00 05/23/20 20:59 04/28/20 08:33 Tamsulosin HCl (Flomax) 0.4 mg BID ORAL 04/23/20 09:00 05/23/20 08:59 04/28/20 08:33 Zinc Sulfate (Zinc Sulfate) 220 mg DAILY ORAL 04/23/20 09:00 07/22/20 08:59 04/28/20 08:33 Assessment/Plan Assessment/Plan ASSESSMENT COVID 19 PNA ARF possibly on CKD Diarrhea Generalized weakness Cocaine abuse Homeless PLAN OF CARE MS floor isolation day #6 supplemetnal O to keep sat >90% Albuterol MDI prn on abx per ID recs-> Ceftriaxone and Azithromycin completing this 04/28 today) hold steroids and Remdesivir given pulse ox stable on RA fup CXR 04/26 -> worsening bilateral lower lung infiltrates, over 2 days resp status however remains stable, on RA, no SOB, no distress, no fevers, monitor closely a/c with Lovenox Venous Duplex BLE check IL-6 -49.5 inflammatory markers not quite impressive to show risk for cytokine storm: ferritin 456->414->411 CRP 3.8 ->3.5->2.2 LDH 252, D dimer 2.06 vit C and zinc BCX 04/22 NGTD dc IVF, renal US monitor renal parameters, lytes, correct lytes as needed avoid nephrotoxics nephro follows creat trending down diarrhea improved with Imodium stool C dif if diarrhea persist consider Lactobacillus HIV nonreactive urine tox + 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 Agree with above A&P as it reflects our joint deliberations. Ana Keller RN ADMISSION Apr 28, 2020 11:25 Rasta Sutherland MD Apr 28, 2020 14:32
--- NOTE | 2020-04-28 13:31 | Surgery Progress Note ---
Surgery Progress Note Subjective Symptoms: improved, tolerating diet, voiding well, passing flatus Objective Last 24 Hour Vital Signs Date Time Temp Pulse Resp B/P (MAP) Pulse Ox O2 Delivery O2 Flow Rate FiO2 04/28/20 12:00 98.8 63 22 145/77 (99) 93 04/28/20 09:00 Room Air 04/28/20 08:00 98.1 65 20 157/67 (97) 94 04/28/20 04:00 98.1 61 19 147/81 (103) 95 04/28/20 00:00 98.6 72 19 134/78 (96) 95 04/27/20 21:00 Room Air 04/27/20 20:00 98.1 63 19 157/74 (101) 96 04/27/20 16:00 98.6 62 20 150/78 (102) 96 I&O Intake and Output 04/27/20 04/28/20 19:00 07:00 Intake Total 1000 ml 250 ml Output Total 1800 ml 2400 ml Balance -800 ml -2150 ml Intake Oral 1000 ml IV Total 250 ml Output Urine Total 1800 ml 2400 ml # Voids 2 3 Dressing: saturated Cardiovascular: RSR Respiratory: decreased breath sounds Abdomen: soft, non-tender, present bowel sounds Extremities: no tenderness, no cyanosis Laboratory Tests Test 04/28/20 06:00 White Blood Count 8.4 K/UL (4.8-10.8) Red Blood Count 4.34 M/UL (4.70-6.10) L Hemoglobin 13.0 G/DL (14.2-18.0) L Hematocrit 38.3 % (42.0-52.0) L Mean Corpuscular Volume 88 FL (80-99) Mean Corpuscular Hemoglobin 29.9 PG (27.0-31.0) Mean Corpuscular Hemoglobin Concent 33.9 G/DL (32.0-36.0) Red Cell Distribution Width 11.5 % (11.6-14.8) L Platelet Count 280 K/UL (150-450) Mean Platelet Volume 7.2 FL (6.5-10.1) Neutrophils (%) (Auto) 62.9 % (45.0-75.0) Lymphocytes (%) (Auto) 25.8 % (20.0-45.0) Monocytes (%) (Auto) 8.8 % (1.0-10.0) Eosinophils (%) (Auto) 1.2 % (0.0-3.0) Basophils (%) (Auto) 1.3 % (0.0-2.0) Sodium Level 141 MMOL/L (136-145) Potassium Level 4.1 MMOL/L (3.5-5.1) Chloride Level 108 MMOL/L (98-107) H Carbon Dioxide Level 23 MMOL/L (21-32) Anion Gap 10 mmol/L (5-15) Blood Urea Nitrogen 18 mg/dL (7-18) Creatinine 1.3 MG/DL (0.55-1.30) Estimat Glomerular Filtration Rate > 60 mL/min (>60) Glucose Level 89 MG/DL (74-106) Calcium Level 8.4 MG/DL (8.5-10.1) L Plan Problems: (1) ARF (acute renal failure) (2) Episode of generalized weakness (3) Cocaine abuse (4) Diarrhea Assessment & Plan: 64M diarrhea improving okay for diet exam stable no acute surgical intervention at this time kub ordered thank you responded well to Imodium comfortable no complaints no n/v/f/c states feels well (5) COVID-19 Assessment & Plan: + appreciate ID input improving (6) Dental abscess (7) Dental abscess (8) Hernia (9) MALCOM (acute kidney injury) Jose Delgadillo Apr 28, 2020 13:31
--- NOTE | 2020-04-28 13:58 | Infectious Diseases Prog Note ---
Assessment/Plan Assessment/Plan ASSESSMENT AND PLAN: 1. covid-19 infection with pna, ? CAP, fevers - ceftriaxone - day # 6/7 - s/p azithromycin - f/u labs and chest x-ray as indicated - clinically better, fevers resolved 2. Elevated creatinine, possible chronic kidney disease. 3. Anemia, mild. 4. No history of diabetes or hypertension. 5. No history of cancer. 6. Allergies are negative. 7. Social history is positive for cocaine use in the past. 8. Family history is noncontributory. 9. MAR is noted. 10. Case is discussed with RN. 11. Continue treatment per primary consultants. Subjective Constitutional: Reports: fatigue; Denies: fever HEENT: Reports: other - mild hypoxia earlier ; Denies: congestion Respiratory: Reports: dry cough; Denies: shortness of breath Cardiovascular: Denies: chest pain Gastrointestinal/Abdominal: Denies: nausea, vomiting, diarrhea Genitourinary: Reports: other - no gutiérrez Neurologic: Denies: headache Psychiatric: Denies: depression Skin: Denies: rash Hematologic: Denies: bleeding Musculoskeletal: Denies: pain Allergies: Coded Allergies: No Known Allergies (Unverified , 03/17/15) Objective Last 24 Hour Vital Signs Date Time Temp Pulse Resp B/P (MAP) Pulse Ox O2 Delivery O2 Flow Rate FiO2 04/28/20 12:00 98.8 63 22 145/77 (99) 93 04/28/20 09:00 Room Air 04/28/20 08:00 98.1 65 20 157/67 (97) 94 04/28/20 04:00 98.1 61 19 147/81 (103) 95 04/28/20 00:00 98.6 72 19 134/78 (96) 95 04/27/20 21:00 Room Air 04/27/20 20:00 98.1 63 19 157/74 (101) 96 04/27/20 16:00 98.6 62 20 150/78 (102) 96 Height (Feet): 5 Height (Inches): 11.00 Weight (Pounds): 155 General Appearance: no acute distress HEENT: normocephalic, atraumatic, anicteric, mucous membranes moist Respiratory/Chest: no respiratory distress, no accessory muscle use, crackles/ rales, rhonchi - bilaterally Cardiovascular: normal rate, regular rhythm, no gallop/murmur Abdomen: normal bowel sounds, soft, non tender, no organomegaly, non distended Genitourinary: other - no gutiérrez Extremities: no cyanosis Skin: no rash 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 There is increased obscuration of left hemidiaphragm, may be from worsening infiltrate but also reflect increased pleural fluid the heart size is normal. The aorta is tortuous and ectatic. Mediastinum is unremarkable. Impression: Worsening bilateral lower lung infiltrates, over 2 days Microbiology Date/Time Source Procedure Growth Status 04/22/20 17:20 Blood Blood Culture - Final NO GROWTH AFTER 5 DAYS Complete 04/22/20 15:19 Nasopharynx SARS-CoV-2 RdRp Gene Assay - Final Complete Laboratory Tests Test 04/28/20 06:00 White Blood Count 8.4 K/UL (4.8-10.8) Red Blood Count 4.34 M/UL (4.70-6.10) L Hemoglobin 13.0 G/DL (14.2-18.0) L Hematocrit 38.3 % (42.0-52.0) L Mean Corpuscular Volume 88 FL (80-99) Mean Corpuscular Hemoglobin 29.9 PG (27.0-31.0) Mean Corpuscular Hemoglobin Concent 33.9 G/DL (32.0-36.0) Red Cell Distribution Width 11.5 % (11.6-14.8) L Platelet Count 280 K/UL (150-450) Mean Platelet Volume 7.2 FL (6.5-10.1) Neutrophils (%) (Auto) 62.9 % (45.0-75.0) Lymphocytes (%) (Auto) 25.8 % (20.0-45.0) Monocytes (%) (Auto) 8.8 % (1.0-10.0) Eosinophils (%) (Auto) 1.2 % (0.0-3.0) Basophils (%) (Auto) 1.3 % (0.0-2.0) Sodium Level 141 MMOL/L (136-145) Potassium Level 4.1 MMOL/L (3.5-5.1) Chloride Level 108 MMOL/L (98-107) H Carbon Dioxide Level 23 MMOL/L (21-32) Anion Gap 10 mmol/L (5-15) Blood Urea Nitrogen 18 mg/dL (7-18) Creatinine 1.3 MG/DL (0.55-1.30) Estimat Glomerular Filtration Rate > 60 mL/min (>60) Glucose Level 89 MG/DL (74-106) Calcium Level 8.4 MG/DL (8.5-10.1) L Current Medications Medications (Trade) Dose Ordered Sig/Dagmar Route PRN Reason Start Time Stop Time Status Last Admin Dose Admin Acetaminophen (Tylenol) 650 mg Q4H PRN ORAL Mild Pain (Pain Scale 1-3) 04/22/20 19:30 05/22/20 19:29 04/26/20 20:11 Acetaminophen (Tylenol) 650 mg Q4H PRN ORAL Temp >100.5 04/24/20 17:30 05/24/20 17:29 Albuterol Sulfate (Proventil MDI) 2 puff Q4H PRN INH Shortness of Breath 04/23/20 09:00 07/22/20 08:59 Ascorbic Acid (Vitamin C) 500 mg TWICE A DAY ORAL 04/23/20 09:00 05/23/20 08:59 04/28/20 08:33 Azithromycin 250 mg/Dextrose 250 ml @ 250 mls/hr Q24HRS IV 04/23/20 16:00 04/28/20 15:59 04/27/20 18:09 Ceftriaxone Sodium 1 gm/ Dextrose 50 ml @ 100 mls/hr Q24H IVPB 04/23/20 14:00 04/30/20 13:59 04/27/20 16:44 Diphenhydramine HCl (Benadryl) 25 mg Q6H PRN IVP Itching 04/22/20 19:30 05/22/20 19:29 Enoxaparin Sodium (Lovenox) 40 mg DAILY SUBQ 04/23/20 09:00 07/22/20 08:59 04/28/20 08:34 Loperamide HCl (Imodium) 2 mg Q6H PRN NG Diarrhea 04/23/20 09:00 05/23/20 08:59 Ondansetron HCl (Zofran) 4 mg Q6H PRN IVP Nausea & Vomiting 04/22/20 19:30 05/22/20 19:29 Pantoprazole (Protonix) 40 mg EVERY 12 HOURS ORAL 04/23/20 21:00 05/23/20 20:59 04/28/20 08:33 Tamsulosin HCl (Flomax) 0.4 mg BID ORAL 04/23/20 09:00 05/23/20 08:59 04/28/20 08:33 Zinc Sulfate (Zinc Sulfate) 220 mg DAILY ORAL 04/23/20 09:00 07/22/20 08:59 04/28/20 08:33 Kristie Hugo MD Apr 28, 2020 13:58
[2020-04-28] MEDS: cefTRIAXone 1 GM in D5W 50 ML IVPB SCH (14:00)
[2020-04-29 04:00] VITALS: BP 154/88
[2020-04-29 06:17] LABS: BASOPHILS % (AUTO) 1.1 % (0.0-2.0); EOSINOPHILS % (AUTO) 1.2 % (0.0-3.0); HEMATOCRIT 41.6 % (42.0-52.0); LYMPHOCYTES % (AUTO) 28.2 % (20.0-45.0); MEAN CORPUSCULAR VOLUME 89 FL (80-99); MONOCYTES % (AUTO) 9.4 % (1.0-10.0); NEUTROPHILS % (AUTO) 60.2 % (45.0-75.0); PLATELET COUNT 329 K/UL (150-450); RED BLOOD COUNT 4.69 M/UL (4.70-6.10); RED CELL DISTRIBUTION WIDTH 11.8 % (11.6-14.8); WHITE BLOOD COUNT 7.5 K/UL (4.8-10.8)
[2020-04-29 06:57] LABS: ALANINE AMINOTRANSFERASE 30 U/L (12-78); ALBUMIN 2.3 G/DL (3.4-5.0); ALBUMIN/GLOBULIN RATIO 0.5 (1.0-2.7); ALKALINE PHOSPHATASE 121 U/L (46-116); ANION GAP 8 mmol/L (5-15); ASPARTATE AMINO TRANSFERASE 35 U/L (15-37); BILIRUBIN,TOTAL 0.3 MG/DL (0.2-1.0); BLOOD UREA NITROGEN 19 mg/dL (7-18); CALCIUM 8.3 MG/DL (8.5-10.1); CARBON DIOXIDE 26 MMOL/L (21-32); CHLORIDE 106 MMOL/L (98-107); CREATININE 1.4 MG/DL (0.55-1.30); FERRITIN 443 NG/ML (8-388); POTASSIUM 4.2 MMOL/L (3.5-5.1); SODIUM 140 MMOL/L (136-145)
[2020-04-29 08:00] VITALS: BP 140/73
[2020-04-29] MEDS: Tamsulosin 0.4mg cap ORAL SCH ×2 (08:49→17:26)
[2020-04-29] MEDS: Zinc Sulfate 220mg ORAL SCH (08:49)
[2020-04-29] MEDS: Ascorbic Acid 500mg tab ORAL SCH ×2 (08:49→17:26)
[2020-04-29] MEDS: Enoxaparin 40mg Inj SUBQ SCH (08:54)
--- NOTE | 2020-04-29 09:31 | Diagnostic Imaging Report ---
EXAM: XR Chest, 1 View CLINICAL HISTORY: INFECT TECHNIQUE: Frontal view of the chest. COMPARISON: 04/26/20 FINDINGS: Lungs: There is been slight worsening of mild to moderate diffuse left lung pneumonia with unchanged mild diffuse right lung pneumonia. Pleural space: Unremarkable. No pneumothorax. Heart: Cardiomegaly. Mediastinum: Unremarkable. Bones/joints: Unremarkable. IMPRESSION: There is been slight worsening of mild to moderate diffuse left lung pneumonia with unchanged mild diffuse right lung pneumonia.
--- NOTE | 2020-04-29 09:39 | Surgery Progress Note ---
Surgery Progress Note Subjective Additional Comments no acute events comfortable stable no n/v/f/c Objective Last 24 Hour Vital Signs Date Time Temp Pulse Resp B/P (MAP) Pulse Ox O2 Delivery O2 Flow Rate FiO2 04/29/20 08:00 97.2 60 18 140/73 (95) 92 04/29/20 07:47 Room Air 04/29/20 04:00 97.5 53 18 154/88 (110) 93 04/28/20 23:53 97.8 56 18 145/80 (101) 96 04/28/20 21:00 Room Air 04/28/20 20:00 97.5 63 18 139/79 (99) 96 04/28/20 16:00 99.0 57 24 149/79 (102) 96 04/28/20 12:00 98.8 63 22 145/77 (99) 93 I&O Intake and Output 04/28/20 04/29/20 19:00 07:00 Intake Total 960 ml 360 ml Output Total 1200 ml Balance -240 ml 360 ml Intake Oral 960 ml Other 360 ml Output Urine Total 1200 ml # Voids 2 Cardiovascular: RSR Respiratory: decreased breath sounds Abdomen: soft, non-tender, present bowel sounds Extremities: no tenderness, no cyanosis Laboratory Tests Test 04/29/20 05:30 White Blood Count 7.5 K/UL (4.8-10.8) Red Blood Count 4.69 M/UL (4.70-6.10) L Hemoglobin 14.0 G/DL (14.2-18.0) L Hematocrit 41.6 % (42.0-52.0) L Mean Corpuscular Volume 89 FL (80-99) Mean Corpuscular Hemoglobin 29.7 PG (27.0-31.0) Mean Corpuscular Hemoglobin Concent 33.6 G/DL (32.0-36.0) Red Cell Distribution Width 11.8 % (11.6-14.8) Platelet Count 329 K/UL (150-450) Mean Platelet Volume 7.2 FL (6.5-10.1) Neutrophils (%) (Auto) 60.2 % (45.0-75.0) Lymphocytes (%) (Auto) 28.2 % (20.0-45.0) Monocytes (%) (Auto) 9.4 % (1.0-10.0) Eosinophils (%) (Auto) 1.2 % (0.0-3.0) Basophils (%) (Auto) 1.1 % (0.0-2.0) Sodium Level 140 MMOL/L (136-145) Potassium Level 4.2 MMOL/L (3.5-5.1) Chloride Level 106 MMOL/L (98-107) Carbon Dioxide Level 26 MMOL/L (21-32) Anion Gap 8 mmol/L (5-15) Blood Urea Nitrogen 19 mg/dL (7-18) H Creatinine 1.4 MG/DL (0.55-1.30) H Estimat Glomerular Filtration Rate > 60 mL/min (>60) Glucose Level 87 MG/DL (74-106) Calcium Level 8.3 MG/DL (8.5-10.1) L Ferritin 443 NG/ML (8-388) H Total Bilirubin 0.3 MG/DL (0.2-1.0) Aspartate Amino Transf (AST/SGOT) 35 U/L (15-37) Alanine Aminotransferase (ALT/SGPT) 30 U/L (12-78) Alkaline Phosphatase 121 U/L (46-116) H C-Reactive Protein, Quantitative 1.0 mg/dL (0.00-0.90) H Total Protein 6.8 G/DL (6.4-8.2) Albumin 2.3 G/DL (3.4-5.0) L Globulin 4.5 g/dL Albumin/Globulin Ratio 0.5 (1.0-2.7) L Plan Problems: (1) ARF (acute renal failure) (2) Episode of generalized weakness (3) Cocaine abuse (4) Diarrhea Assessment & Plan: 64M diarrhea improving okay for diet exam stable no acute surgical intervention at this time kub ordered thank you responded well to Imodium comfortable no complaints no n/v/f/c states feels well (5) COVID-19 Assessment & Plan: + appreciate ID input improving (6) Dental abscess (7) Dental abscess (8) Hernia (9) MALCOM (acute kidney injury) Jose Delgadillo Apr 29, 2020 09:39
--- NOTE | 2020-04-29 10:11 | Pulmonology Progress Note ---
Ana Keller GUN CLUB MANAGER 04/29/20 1011: Subjective ROS Limited/Unobtainable: No - Normal Allergies: Coded Allergies: No Known Allergies (Unverified , 03/17/15) Subjective day #7 isolation remains afebrile no signs of resp distress pulse ox remains stable on RA no further fevers denies CP, SOB , palpitations no cough, no congestion, no sore throat diarrhea resolved CXR 04/26-> worsening bilateral lower lung infiltrates, over 2 days Objective Last 24 Hour Vital Signs Date Time Temp Pulse Resp B/P (MAP) Pulse Ox O2 Delivery O2 Flow Rate FiO2 04/29/20 08:00 97.2 60 18 140/73 (95) 92 04/29/20 07:47 Room Air 04/29/20 04:00 97.5 53 18 154/88 (110) 93 04/28/20 23:53 97.8 56 18 145/80 (101) 96 04/28/20 21:00 Room Air 04/28/20 20:00 97.5 63 18 139/79 (99) 96 04/28/20 16:00 99.0 57 24 149/79 (102) 96 04/28/20 12:00 98.8 63 22 145/77 (99) 93 Intake and Output 04/28/20 04/29/20 19:00 07:00 Intake Total 960 ml 360 ml Output Total 1200 ml Balance -240 ml 360 ml Intake Oral 960 ml Other 360 ml Output Urine Total 1200 ml # Voids 2 Objective General Appearance: no apparent distress, alert Lines, tubes and drains: peripheral HEENT: normocephalic, atraumatic, anicteric, mucous membranes moist Neck: supple Respiratory/Chest: chest wall non-tender, lungs clear, no respiratory distress , no accessory muscle use Cardiovascular/Chest: normal rate Abdomen: normal bowel sounds, non tender, soft Extremities: normal range of motion, no calf tenderness, normal capillary refill Skin Exam: normal pigmentation, warm/dry Neurologic: no motor/sensory deficits, alert, responsive Musculoskeletal: normal muscle bulk Laboratory Tests 04/29/20 05:30: White Blood Count 7.5, Red Blood Count 4.69L, Hemoglobin 14.0L, Hematocrit 41.6L , Mean Corpuscular Volume 89, Mean Corpuscular Hemoglobin 29.7, Mean Corpuscular Hemoglobin Concent 33.6, Red Cell Distribution Width 11.8, Platelet Count 329, Mean Platelet Volume 7.2, Neutrophils (%) (Auto) 60.2, Lymphocytes (% ) (Auto) 28.2, Monocytes (%) (Auto) 9.4, Eosinophils (%) (Auto) 1.2, Basophils ( %) (Auto) 1.1, Sodium Level 140, Potassium Level 4.2, Chloride Level 106, Carbon Dioxide Level 26, Anion Gap 8, Blood Urea Nitrogen 19H, Creatinine 1.4H, Estimat Glomerular Filtration Rate > 60, Glucose Level 87, Calcium Level 8.3L, Ferritin 443H, Total Bilirubin 0.3, Aspartate Amino Transf (AST/SGOT) 35, Alanine Aminotransferase (ALT/SGPT) 30, Alkaline Phosphatase 121H, C-Reactive Protein, Quantitative 1.0H, Total Protein 6.8, Albumin 2.3L, Globulin 4.5, Albumin/Globulin Ratio 0.5L Current Medications Medications (Trade) Dose Ordered Sig/Dagmar Route PRN Reason Start Time Stop Time Status Last Admin Dose Admin Acetaminophen (Tylenol) 650 mg Q4H PRN ORAL Mild Pain (Pain Scale 1-3) 04/22/20 19:30 05/22/20 19:29 04/28/20 17:34 Acetaminophen (Tylenol) 650 mg Q4H PRN ORAL Temp >100.5 04/24/20 17:30 05/24/20 17:29 Albuterol Sulfate (Proventil MDI) 2 puff Q4H PRN INH Shortness of Breath 04/23/20 09:00 07/22/20 08:59 Ascorbic Acid (Vitamin C) 500 mg TWICE A DAY ORAL 04/23/20 09:00 05/23/20 08:59 04/29/20 08:49 Azithromycin 250 mg/Dextrose 250 ml @ 250 mls/hr Q24HRS IV 04/28/20 18:00 04/29/20 18:59 04/28/20 17:31 Ceftriaxone Sodium 1 gm/ Dextrose 50 ml @ 100 mls/hr Q24H IVPB 04/23/20 14:00 04/30/20 13:59 04/28/20 14:00 Diphenhydramine HCl (Benadryl) 25 mg Q6H PRN IVP Itching 04/22/20 19:30 05/22/20 19:29 Enoxaparin Sodium (Lovenox) 40 mg DAILY SUBQ 04/23/20 09:00 07/22/20 08:59 04/29/20 08:54 Loperamide HCl (Imodium) 2 mg Q6H PRN NG Diarrhea 04/23/20 09:00 05/23/20 08:59 Ondansetron HCl (Zofran) 4 mg Q6H PRN IVP Nausea & Vomiting 04/22/20 19:30 05/22/20 19:29 Pantoprazole (Protonix) 40 mg EVERY 12 HOURS ORAL 04/23/20 21:00 05/23/20 20:59 04/29/20 08:49 Tamsulosin HCl (Flomax) 0.4 mg BID ORAL 04/23/20 09:00 05/23/20 08:59 04/29/20 08:49 Zinc Sulfate (Zinc Sulfate) 220 mg DAILY ORAL 04/23/20 09:00 07/22/20 08:59 04/29/20 08:49 Assessment/Plan Assessment/Plan ASSESSMENT COVID 19 PNA ARF possibly on CKD Diarrhea Generalized weakness Cocaine abuse Homeless PLAN OF CARE MS floor isolation day #7 supplemetnal O2 to keep sat >90% Albuterol MDI prn on abx per ID recs-> Ceftriaxone and Azithromycin completing this 04/28 today) hold steroids and Remdesivir given pulse ox stable on RA fup CXR 04/26 -> worsening bilateral lower lung infiltrates, over 2 days resp status however remains stable, on RA, no SOB, no distress, no fevers, monitor closely a/c with Lovenox Venous Duplex BLE check IL-6 -49.5 inflammatory markers not quite impressive to show risk for cytokine storm: ferritin 456->414->411 CRP 3.8 ->3.5->2.2 LDH 252, D dimer 2.06 vit C and zinc BCX 04/22 NGTD off IVF, renal US monitor renal parameters, lytes, correct lytes as needed avoid nephrotoxics nephro follows creat trending down diarrhea improved with Imodium stool C dif if diarrhea persist consider Lactobacillus HIV nonreactive urine tox + cocaine 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 Agree with above A&P as it reflects our joint deliberations. Ana Keller NP Apr 29, 2020 10:11 Rasta Sutherland MD Apr 29, 2020 21:45
--- NOTE | 2020-04-29 11:04 | Nephrology Progress Note ---
Assessment/Plan Problem List: (1) MALCOM (acute kidney injury) (2) COVID-19 (3) Diarrhea (4) Cocaine abuse Assessment Acute renal failure, possible underlying chronic kidney failure Dehydration COVID-19 infection Lower lung patchy infiltrate Diarrhea Cocaine use Mild anemia Plan April 29: Serum creatinine 1.4. Stable from renal standpoint of view. Continue per consultants. April 28: Renal parameters stable. Blood pressure is stable. No renal issues. Continue per consultants. April 27: Serum creatinine 1.4. Stable blood pressure. Stable from renal standpoint of view. April 26: Serum creatinine now 1.3 normal. Blood pressure stable. Stable from renal standpoint of view. April 25: Serum creatinine 1.4. Blood pressure stable. Medication list reviewed. Stable from renal standpoint of view. April 24: Serum creatinine is down to 1.5. Urine positive for cocaine. Continue per consultants. April 23: Stop ibuprofen IV fluids Avoid nephrotoxic's Monitor renal parameters Per consultants / ID HIV screen Subjective ROS Limited/Unobtainable: No Constitutional: Reports: malaise, weakness Objective Objective Last 24 Hour Vital Signs Date Time Temp Pulse Resp B/P (MAP) Pulse Ox O2 Delivery O2 Flow Rate FiO2 04/29/20 08:00 97.2 60 18 140/73 (95) 92 04/29/20 07:47 Room Air 04/29/20 04:00 97.5 53 18 154/88 (110) 93 04/28/20 23:53 97.8 56 18 145/80 (101) 96 04/28/20 21:00 Room Air 04/28/20 20:00 97.5 63 18 139/79 (99) 96 04/28/20 16:00 99.0 57 24 149/79 (102) 96 04/28/20 12:00 98.8 63 22 145/77 (99) 93 Intake and Output 04/28/20 04/29/20 19:00 07:00 Intake Total 960 ml 360 ml Output Total 1200 ml Balance -240 ml 360 ml Intake Oral 960 ml Other 360 ml Output Urine Total 1200 ml # Voids 2 Laboratory Tests 04/29/20 05:30: White Blood Count 7.5, Red Blood Count 4.69L, Hemoglobin 14.0L, Hematocrit 41.6L , Mean Corpuscular Volume 89, Mean Corpuscular Hemoglobin 29.7, Mean Corpuscular Hemoglobin Concent 33.6, Red Cell Distribution Width 11.8, Platelet Count 329, Mean Platelet Volume 7.2, Neutrophils (%) (Auto) 60.2, Lymphocytes (% ) (Auto) 28.2, Monocytes (%) (Auto) 9.4, Eosinophils (%) (Auto) 1.2, Basophils ( %) (Auto) 1.1, Sodium Level 140, Potassium Level 4.2, Chloride Level 106, Carbon Dioxide Level 26, Anion Gap 8, Blood Urea Nitrogen 19H, Creatinine 1.4H, Estimat Glomerular Filtration Rate > 60, Glucose Level 87, Calcium Level 8.3L, Ferritin 443H, Total Bilirubin 0.3, Aspartate Amino Transf (AST/SGOT) 35, Alanine Aminotransferase (ALT/SGPT) 30, Alkaline Phosphatase 121H, C-Reactive Protein, Quantitative 1.0H, Total Protein 6.8, Albumin 2.3L, Globulin 4.5, Albumin/Globulin Ratio 0.5L Height (Feet): 5 Height (Inches): 11.00 Weight (Pounds): 155 General Appearance: no apparent distress Cardiovascular: normal rate Respiratory/Chest: decreased breath sounds Abdomen: soft Objective No change Nelson Dalal MD Apr 29, 2020 11:04
[2020-04-29 12:00] VITALS: BP 143/82
[2020-04-29] MEDS: cefTRIAXone 1 GM in D5W 50 ML IVPB SCH (13:49)
[2020-04-29 16:00] VITALS: BP 133/73
[2020-04-29 20:00] VITALS: BP 127/74
[2020-04-30] VITALS: BP 132/70
[2020-04-30 04:00] VITALS: BP 141/77
[2020-04-30 08:00] VITALS: BP 138/75
--- NOTE | 2020-04-30 09:42 | Pulmonology Progress Note ---
Ana Keller CUSTOM SEAM[employer]ESS 04/30/20 0942: Subjective ROS Limited/Unobtainable: No Allergies: Coded Allergies: No Known Allergies (Unverified , 03/17/15) Subjective day #8 isolation remains afebrile no signs of resp distress pulse ox remains stable on RA no further fevers denies CP, SOB , palpitations no cough, no congestion, no sore throat CXR 04/29-> slight worsening of mild to moderate diffuse left lung pneumonia with unchanged mild diffuse right lung pneumonia. Objective Last 24 Hour Vital Signs Date Time Temp Pulse Resp B/P (MAP) Pulse Ox O2 Delivery O2 Flow Rate FiO2 04/30/20 08:00 98.0 59 19 138/75 (96) 96 04/30/20 04:00 97.8 55 19 141/77 (98) 95 04/30/20 00:00 97.6 78 19 132/70 (90) 96 04/29/20 20:33 Room Air 04/29/20 20:00 97.8 62 19 127/74 (91) 97 04/29/20 16:00 97.9 60 18 133/73 (93) 95 04/29/20 12:00 97.9 56 18 143/82 (102) 95 Intake and Output 04/29/20 04/30/20 19:00 07:00 Intake Total 720 ml Output Total 600 ml 1550 ml Balance 120 ml -1550 ml Intake Oral 720 ml Output Urine Total 600 ml 1550 ml # Voids 3 Objective General Appearance: no apparent distress, alert Lines, tubes and drains: peripheral HEENT: normocephalic, atraumatic, anicteric, mucous membranes moist Neck: supple Respiratory/Chest: chest wall non-tender, lungs clear, no respiratory distress , no accessory muscle use Cardiovascular/Chest: normal rate Abdomen: normal bowel sounds, non tender, soft Extremities: normal range of motion, no calf tenderness, normal capillary refill Skin Exam: normal pigmentation, warm/dry Neurologic: no motor/sensory deficits, alert, responsive Musculoskeletal: normal muscle bulk Current Medications Medications (Trade) Dose Ordered Sig/Dagmar Route PRN Reason Start Time Stop Time Status Last Admin Dose Admin Acetaminophen (Tylenol) 650 mg Q4H PRN ORAL Mild Pain (Pain Scale 1-3) 04/22/20 19:30 05/22/20 19:29 04/28/20 17:34 Acetaminophen (Tylenol) 650 mg Q4H PRN ORAL Temp >100.5 04/24/20 17:30 05/24/20 17:29 Albuterol Sulfate (Proventil MDI) 2 puff Q4H PRN INH Shortness of Breath 04/23/20 09:00 07/22/20 08:59 Ascorbic Acid (Vitamin C) 500 mg TWICE A DAY ORAL 04/23/20 09:00 05/23/20 08:59 04/29/20 17:26 Ceftriaxone Sodium 1 gm/ Dextrose 50 ml @ 100 mls/hr Q24H IVPB 04/23/20 14:00 04/30/20 13:59 04/29/20 13:49 Diphenhydramine HCl (Benadryl) 25 mg Q6H PRN IVP Itching 04/22/20 19:30 05/22/20 19:29 04/29/20 13:57 Enoxaparin Sodium (Lovenox) 40 mg DAILY SUBQ 04/23/20 09:00 07/22/20 08:59 04/29/20 08:54 Loperamide HCl (Imodium) 2 mg Q6H PRN NG Diarrhea 04/23/20 09:00 05/23/20 08:59 Ondansetron HCl (Zofran) 4 mg Q6H PRN IVP Nausea & Vomiting 04/22/20 19:30 05/22/20 19:29 Pantoprazole (Protonix) 40 mg EVERY 12 HOURS ORAL 04/23/20 21:00 05/23/20 20:59 04/29/20 20:49 Tamsulosin HCl (Flomax) 0.4 mg BID ORAL 04/23/20 09:00 05/23/20 08:59 04/29/20 17:26 Zinc Sulfate (Zinc Sulfate) 220 mg DAILY ORAL 04/23/20 09:00 07/22/20 08:59 04/29/20 08:49 Assessment/Plan Assessment/Plan ASSESSMENT COVID 19 PNA ARF possibly on CKD Diarrhea Generalized weakness Cocaine abuse Homeless PLAN OF CARE MS floor isolation day #8 supplemetnal O2 to keep sat >90% Albuterol MDI prn on abx per ID recs-> Ceftriaxone ( completing today 04/30) and Azithromycin completed 04/28 hold steroids and Remdesivir given pulse ox stable on RA fup CXR 04/29-> slight worsening of mild to moderate diffuse left lung pneumonia with unchanged mild diffuse right lung pneumonia. 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 Agree with above A&P as it reflects our joint deliberations. Ana Keller CUSTOM SEAMSTRESS Apr 30, 2020 09:42 Rasta Sutherland MD Apr 30, 2020 20:42
[2020-04-30] MEDS: Ascorbic Acid 500mg tab ORAL SCH ×2 (09:46→17:29)
[2020-04-30] MEDS: Tamsulosin 0.4mg cap ORAL SCH ×2 (09:46→17:29)
[2020-04-30] MEDS: Zinc Sulfate 220mg ORAL SCH (09:46)
[2020-04-30] MEDS: Enoxaparin 40mg Inj SUBQ SCH (09:48)
--- NOTE | 2020-04-30 10:20 | Nephrology Progress Note ---
Assessment/Plan Problem List: (1) MALCOM (acute kidney injury) (2) COVID-19 (3) Diarrhea (4) Cocaine abuse Assessment Acute renal failure, possible underlying chronic kidney failure Dehydration COVID-19 infection Lower lung patchy infiltrate Diarrhea Cocaine use Mild anemia Plan April 30: No labs drawn today. Remains stable from renal standpoint of view. Continue per consultants. April 29: Serum creatinine 1.4. Stable from renal standpoint of view. Continue per consultants. April 28: Renal parameters stable. Blood pressure is stable. No renal issues. Continue per consultants. April 27: Serum creatinine 1.4. Stable blood pressure. Stable from renal standpoint of view. April 26: Serum creatinine now 1.3 normal. Blood pressure stable. Stable from renal standpoint of view. April 25: Serum creatinine 1.4. Blood pressure stable. Medication list reviewed. Stable from renal standpoint of view. April 24: Serum creatinine is down to 1.5. Urine positive for cocaine. Continue per consultants. April 23: Stop ibuprofen IV fluids Avoid nephrotoxic's Monitor renal parameters Per consultants / ID HIV screen Subjective ROS Limited/Unobtainable: No Constitutional: Reports: malaise Objective Objective Last 24 Hour Vital Signs Date Time Temp Pulse Resp B/P (MAP) Pulse Ox O2 Delivery O2 Flow Rate FiO2 04/30/20 08:00 98.0 59 19 138/75 (96) 96 04/30/20 04:00 97.8 55 19 141/77 (98) 95 04/30/20 00:00 97.6 78 19 132/70 (90) 96 04/29/20 20:33 Room Air 04/29/20 20:00 97.8 62 19 127/74 (91) 97 04/29/20 16:00 97.9 60 18 133/73 (93) 95 04/29/20 12:00 97.9 56 18 143/82 (102) 95 Intake and Output 04/29/20 04/30/20 19:00 07:00 Intake Total 720 ml Output Total 600 ml 1550 ml Balance 120 ml -1550 ml Intake Oral 720 ml Output Urine Total 600 ml 1550 ml # Voids 3 No labs drawn today Height (Feet): 5 Height (Inches): 11.00 Weight (Pounds): 155 Cardiovascular: normal rate Respiratory/Chest: decreased breath sounds Abdomen: soft Objective No change Fouladian,Nelson MD Apr 30, 2020 10:20
[2020-04-30 12:00] VITALS: BP 142/80
--- NOTE | 2020-04-30 13:08 | Surgery Progress Note ---
Surgery Progress Note Subjective Symptoms: improved, tolerating diet, passing flatus Objective Last 24 Hour Vital Signs Date Time Temp Pulse Resp B/P (MAP) Pulse Ox O2 Delivery O2 Flow Rate FiO2 04/30/20 12:00 98.2 65 20 142/80 (100) 97 04/30/20 09:00 Room Air 04/30/20 08:00 98.0 59 19 138/75 (96) 96 04/30/20 04:00 97.8 55 19 141/77 (98) 95 04/30/20 00:00 97.6 78 19 132/70 (90) 96 04/29/20 20:33 Room Air 04/29/20 20:00 97.8 62 19 127/74 (91) 97 04/29/20 16:00 97.9 60 18 133/73 (93) 95 I&O Intake and Output 04/29/20 04/30/20 19:00 07:00 Intake Total 720 ml Output Total 600 ml 1550 ml Balance 120 ml -1550 ml Intake Oral 720 ml Output Urine Total 600 ml 1550 ml # Voids 3 Dressing: other Wound: other Cardiovascular: RSR Respiratory: decreased breath sounds Abdomen: soft, non-tender, present bowel sounds Extremities: no tenderness, no cyanosis Plan Problems: (1) ARF (acute renal failure) (2) Episode of generalized weakness (3) Cocaine abuse (4) Diarrhea Assessment & Plan: 64M diarrhea improving okay for diet exam stable no acute surgical intervention at this time kub ordered thank you responded well to Imodium comfortable no complaints no n/v/f/c states feels well (5) COVID-19 Assessment & Plan: + appreciate ID input improving (6) Dental abscess (7) Dental abscess (8) Hernia (9) MALCOM (acute kidney injury) Jose Delgadillo Apr 30, 2020 13:08
--- NOTE | 2020-04-30 15:19 | Infectious Diseases Prog Note ---
Assessment/Plan Assessment/Plan ASSESSMENT AND PLAN: 1. covid-19 infection with pna, ? CAP, fevers - s/p ceftriaxone - s/p azithromycin - f/u labs and chest x-ray as indicated - clinically better, fevers resolved 2. Elevated creatinine, possible chronic kidney disease. 3. Anemia, mild. 4. No history of diabetes or hypertension. 5. No history of cancer. 6. Allergies are negative. 7. Social history is positive for cocaine use in the past. 8. Family history is noncontributory. 9. MAR is noted. 10. Case is discussed with RN. 11. Continue treatment per primary consultants. Subjective Constitutional: Denies: fever HEENT: Denies: congestion Respiratory: Denies: shortness of breath Cardiovascular: Denies: chest pain Gastrointestinal/Abdominal: Denies: nausea, vomiting, diarrhea Genitourinary: Denies: dysuria Neurologic: Denies: headache Psychiatric: Denies: depression Skin: Denies: rash Hematologic: Denies: bleeding Musculoskeletal: Denies: pain Allergies: Coded Allergies: No Known Allergies (Unverified , 03/17/15) Objective Last 24 Hour Vital Signs Date Time Temp Pulse Resp B/P (MAP) Pulse Ox O2 Delivery O2 Flow Rate FiO2 04/30/20 12:00 98.2 65 20 142/80 (100) 97 04/30/20 09:00 Room Air 04/30/20 08:00 98.0 59 19 138/75 (96) 96 04/30/20 04:00 97.8 55 19 141/77 (98) 95 04/30/20 00:00 97.6 78 19 132/70 (90) 96 04/29/20 20:33 Room Air 04/29/20 20:00 97.8 62 19 127/74 (91) 97 04/29/20 16:00 97.9 60 18 133/73 (93) 95 Height (Feet): 5 Height (Inches): 11.00 Weight (Pounds): 155 General Appearance: no acute distress HEENT: normocephalic, atraumatic, anicteric, mucous membranes moist Respiratory/Chest: lungs clear, normal breath sounds, no respiratory distress, no accessory muscle use Cardiovascular: normal rate, regular rhythm, no gallop/murmur, no JVD Abdomen: normal bowel sounds, soft, non tender, no organomegaly, non distended Genitourinary: other - no gutiérrez Extremities: no cyanosis Skin: no rash Neurologic/Psychiatric: lighting adviser II-XII grossly normal, alert, responsive Lymphatic: no neck adenopathy Musculoskeletal: no effusion Chest x-ray - 04/2620 - Procedure: XRAY Chest 1v Indication: Cough Technique: One view of the chest Comparison: 04/24/2020 Findings: Bilateral infiltrates at the lung bases appear slightly worse. There is increased obscuration of left hemidiaphragm, may be from worsening infiltrate but also reflect increased pleural fluid the heart size is normal. The aorta is tortuous and ectatic. Mediastinum is unremarkable. Impression: Worsening bilateral lower lung infiltrates, over 2 days Chest x-ray - 04/29/30 - IMPRESSION: There is been slight worsening of mild to moderate diffuse left lung pneumonia with unchanged mild diffuse right lung pneumonia. Microbiology Date/Time Source Procedure Growth Status 04/22/20 17:20 Blood Blood Culture - Final NO GROWTH AFTER 5 DAYS Complete 04/22/20 15:19 Nasopharynx SARS-CoV-2 RdRp Gene Assay - Final Complete Labs Test 04/28/20 06:00 04/29/20 05:30 White Blood Count 8.4 K/UL (4.8-10.8) 7.5 K/UL (4.8-10.8) Red Blood Count 4.34 M/UL (4.70-6.10) 4.69 M/UL (4.70-6.10) Hemoglobin 13.0 G/DL (14.2-18.0) 14.0 G/DL (14.2-18.0) Hematocrit 38.3 % (42.0-52.0) 41.6 % (42.0-52.0) Mean Corpuscular Volume 88 FL (80-99) 89 FL (80-99) Mean Corpuscular Hemoglobin 29.9 PG (27.0-31.0) 29.7 PG (27.0-31.0) Mean Corpuscular Hemoglobin Concent 33.9 G/DL (32.0-36.0) 33.6 G/DL (32.0-36.0) Red Cell Distribution Width 11.5 % (11.6-14.8) 11.8 % (11.6-14.8) Platelet Count 280 K/UL (150-450) 329 K/UL (150-450) Mean Platelet Volume 7.2 FL (6.5-10.1) 7.2 FL (6.5-10.1) Neutrophils (%) (Auto) 62.9 % (45.0-75.0) 60.2 % (45.0-75.0) Lymphocytes (%) (Auto) 25.8 % (20.0-45.0) 28.2 % (20.0-45.0) Monocytes (%) (Auto) 8.8 % (1.0-10.0) 9.4 % (1.0-10.0) Eosinophils (%) (Auto) 1.2 % (0.0-3.0) 1.2 % (0.0-3.0) Basophils (%) (Auto) 1.3 % (0.0-2.0) 1.1 % (0.0-2.0) Sodium Level 141 MMOL/L (136-145) 140 MMOL/L (136-145) Potassium Level 4.1 MMOL/L (3.5-5.1) 4.2 MMOL/L (3.5-5.1) Chloride Level 108 MMOL/L (98-107) 106 MMOL/L (98-107) Carbon Dioxide Level 23 MMOL/L (21-32) 26 MMOL/L (21-32) Anion Gap 10 mmol/L (5-15) 8 mmol/L (5-15) Blood Urea Nitrogen 18 mg/dL (7-18) 19 mg/dL (7-18) Creatinine 1.3 MG/DL (0.55-1.30) 1.4 MG/DL (0.55-1.30) Estimat Glomerular Filtration Rate > 60 mL/min (>60) > 60 mL/min (>60) Glucose Level 89 MG/DL (74-106) 87 MG/DL (74-106) Calcium Level 8.4 MG/DL (8.5-10.1) 8.3 MG/DL (8.5-10.1) Ferritin 443 NG/ML (8-388) Total Bilirubin 0.3 MG/DL (0.2-1.0) Aspartate Amino Transf (AST/SGOT) 35 U/L (15-37) Alanine Aminotransferase (ALT/SGPT) 30 U/L (12-78) Alkaline Phosphatase 121 U/L (46-116) C-Reactive Protein, Quantitative 1.0 mg/dL (0.00-0.90) Total Protein 6.8 G/DL (6.4-8.2) Albumin 2.3 G/DL (3.4-5.0) Globulin 4.5 g/dL Albumin/Globulin Ratio 0.5 (1.0-2.7) Current Medications Medications (Trade) Dose Ordered Sig/Dagmar Route PRN Reason Start Time Stop Time Status Last Admin Dose Admin Acetaminophen (Tylenol) 650 mg Q4H PRN ORAL Mild Pain (Pain Scale 1-3) 04/22/20 19:30 05/22/20 19:29 04/28/20 17:34 Acetaminophen (Tylenol) 650 mg Q4H PRN ORAL Temp >100.5 04/24/20 17:30 05/24/20 17:29 Albuterol Sulfate (Proventil MDI) 2 puff Q4H PRN INH Shortness of Breath 04/23/20 09:00 07/22/20 08:59 Ascorbic Acid (Vitamin C) 500 mg TWICE A DAY ORAL 04/23/20 09:00 05/23/20 08:59 04/30/20 09:46 Diphenhydramine HCl (Benadryl) 25 mg Q6H PRN IVP Itching 04/22/20 19:30 05/22/20 19:29 04/29/20 13:57 Enoxaparin Sodium (Lovenox) 40 mg DAILY SUBQ 04/23/20 09:00 07/22/20 08:59 04/30/20 09:48 Loperamide HCl (Imodium) 2 mg Q6H PRN NG Diarrhea 04/23/20 09:00 05/23/20 08:59 Ondansetron HCl (Zofran) 4 mg Q6H PRN IVP Nausea & Vomiting 04/22/20 19:30 05/22/20 19:29 Pantoprazole (Protonix) 40 mg EVERY 12 HOURS ORAL 04/23/20 21:00 05/23/20 20:59 04/30/20 09:46 Tamsulosin HCl (Flomax) 0.4 mg BID ORAL 04/23/20 09:00 05/23/20 08:59 04/30/20 09:46 Zinc Sulfate (Zinc Sulfate) 220 mg DAILY ORAL 04/23/20 09:00 07/22/20 08:59 04/30/20 09:46 Kristie Hugo MD Apr 30, 2020 15:19
[2020-04-30 16:00] VITALS: BP 140/78
[2020-04-30 20:00] VITALS: BP 141/73
[2020-05-01] VITALS: BP 135/74
[2020-05-01 04:00] VITALS: BP 136/68
[2020-05-01 08:00] VITALS: BP 134/70
[2020-05-01 08:03] LABS: EOSINOPHILS % (AUTO) 0.6 % (0.0-3.0); HEMATOCRIT 39.2 % (42.0-52.0); HEMOGLOBIN 13.2 G/DL (14.2-18.0); MEAN CORPUSCULAR VOLUME 89 FL (80-99); MONOCYTES % (AUTO) 7.4 % (1.0-10.0); NEUTROPHILS % (AUTO) 69.1 % (45.0-75.0); PLATELET COUNT 360 K/UL (150-450); RED BLOOD COUNT 4.43 M/UL (4.70-6.10); RED CELL DISTRIBUTION WIDTH 12.1 % (11.6-14.8); WHITE BLOOD COUNT 12.1 K/UL (4.8-10.8)
[2020-05-01 08:04] LABS: ANION GAP 8 mmol/L (5-15); BLOOD UREA NITROGEN 23 mg/dL (7-18); CALCIUM 8.6 MG/DL (8.5-10.1); CARBON DIOXIDE 26 MMOL/L (21-32); CHLORIDE 105 MMOL/L (98-107); CREATININE 1.5 MG/DL (0.55-1.30); POTASSIUM 4.2 MMOL/L (3.5-5.1); SODIUM 138 MMOL/L (136-145)
--- NOTE | 2020-05-01 09:10 | General Progress Note ---
Assessment/Plan Problem List: (1) Cocaine abuse ICD Codes: F14.10 - Cocaine abuse, uncomplicated SNOMED: 08617481 (2) COVID-19 ICD Codes: U07.1 - COVID-19 SNOMED: 047783129 (3) Diarrhea ICD Codes: R19.7 - Diarrhea, unspecified SNOMED: [id number] Qualifiers: Qualified Codes: R19.7 - Diarrhea, unspecified Assessment/Plan: pulm care good response to Imodium fu labs on reg diet dc planning per primary team Subjective ROS Limited/Unobtainable: Yes Allergies: Coded Allergies: No Known Allergies (Unverified , 03/17/15) Objective Last 24 Hour Vital Signs Date Time Temp Pulse Resp B/P (MAP) Pulse Ox O2 Delivery O2 Flow Rate FiO2 05/01/20 08:00 97.6 72 19 134/70 (91) 95 05/01/20 04:00 97.9 68 18 136/68 (90) 92 05/01/20 00:00 98.2 60 20 135/74 (94) 96 04/30/20 21:00 Room Air 04/30/20 20:00 97.4 67 19 141/73 (95) 94 04/30/20 16:00 98.1 68 20 140/78 (98) 98 04/30/20 12:00 98.2 65 20 142/80 (100) 97 Intake and Output 04/30/20 05/01/20 19:00 07:00 Intake Total 1460 ml Output Total 650 ml Balance 1460 ml -650 ml Intake Oral 1460 ml Output Urine Total 650 ml # Voids 6 1 # Bowel Movements 1 1 Laboratory Tests 05/01/20 07:30: White Blood Count 12.1H, Red Blood Count 4.43L, Hemoglobin 13.2L, Hematocrit 39.2L, Mean Corpuscular Volume 89, Mean Corpuscular Hemoglobin 29.9, Mean Corpuscular Hemoglobin Concent 33.7, Red Cell Distribution Width 12.1, Platelet Count 360, Mean Platelet Volume 6.8, Neutrophils (%) (Auto) 69.1, Lymphocytes (% ) (Auto) 22.0, Monocytes (%) (Auto) 7.4, Eosinophils (%) (Auto) 0.6, Basophils ( %) (Auto) 1.0, Sodium Level 138, Potassium Level 4.2, Chloride Level 105, Carbon Dioxide Level 26, Anion Gap 8, Blood Urea Nitrogen 23H, Creatinine 1.5H, Estimat Glomerular Filtration Rate 56.7, Glucose Level 89, Calcium Level 8.6 Height (Feet): 5 Height (Inches): 11.00 Weight (Pounds): 155 General Appearance: no apparent distress EENT: normal ENT inspection Neck: supple Cardiovascular: normal rate Respiratory/Chest: decreased breath sounds Abdomen: normal bowel sounds, non tender, soft Extremities: non-tender Pramod Torres MD May 01, 2020 09:10
--- NOTE | 2020-05-01 09:22 | Pulmonology Progress Note ---
Ana Keller ELECTRONIC MASKING SYSTEM OPERATOR 05/01/20 0922: Subjective ROS Limited/Unobtainable: Yes Gastrointestinal/Abdominal: Reports: nausea Psychiatric: Reports: depression Allergies: Coded Allergies: No Known Allergies (Unverified , 03/17/15) Subjective day #9 isolation remains afebrile, mild leukocytosis this am no signs of resp distress pulse ox remains stable on RA no further fevers denies SOB, CP, malaise denies CP, SOB , palpitations no cough, no congestion, no sore throat CXR 04/29-> slight worsening of mild to moderate diffuse left lung pneumonia with unchanged mild diffuse right lung pneumonia. Objective Last 24 Hour Vital Signs Date Time Temp Pulse Resp B/P (MAP) Pulse Ox O2 Delivery O2 Flow Rate FiO2 05/01/20 08:00 97.6 72 19 134/70 (91) 95 05/01/20 04:00 97.9 68 18 136/68 (90) 92 05/01/20 00:00 98.2 60 20 135/74 (94) 96 04/30/20 21:00 Room Air 04/30/20 20:00 97.4 67 19 141/73 (95) 94 04/30/20 16:00 98.1 68 20 140/78 (98) 98 04/30/20 12:00 98.2 65 20 142/80 (100) 97 Intake and Output 04/30/20 05/01/20 19:00 07:00 Intake Total 1460 ml Output Total 650 ml Balance 1460 ml -650 ml Intake Oral 1460 ml Output Urine Total 650 ml # Voids 6 1 # Bowel Movements 1 1 Objective General Appearance: no apparent distress, alert Lines, tubes and drains: peripheral HEENT: normocephalic, atraumatic, anicteric, mucous membranes moist Neck: supple Respiratory/Chest: chest wall non-tender, lungs clear, no respiratory distress , no accessory muscle use Cardiovascular/Chest: normal rate Abdomen: normal bowel sounds, non tender, soft Extremities: normal range of motion, no calf tenderness, normal capillary refill Skin Exam: normal pigmentation, warm/dry Neurologic: no motor/sensory deficits, alert, responsive Musculoskeletal: normal muscle bulk Laboratory Tests 05/01/20 07:30: White Blood Count 12.1H, Red Blood Count 4.43L, Hemoglobin 13.2L, Hematocrit 39.2L, Mean Corpuscular Volume 89, Mean Corpuscular Hemoglobin 29.9, Mean Corpuscular Hemoglobin Concent 33.7, Red Cell Distribution Width 12.1, Platelet Count 360, Mean Platelet Volume 6.8, Neutrophils (%) (Auto) 69.1, Lymphocytes (% ) (Auto) 22.0, Monocytes (%) (Auto) 7.4, Eosinophils (%) (Auto) 0.6, Basophils ( %) (Auto) 1.0, Sodium Level 138, Potassium Level 4.2, Chloride Level 105, Carbon Dioxide Level 26, Anion Gap 8, Blood Urea Nitrogen 23H, Creatinine 1.5H, Estimat Glomerular Filtration Rate 56.7, Glucose Level 89, Calcium Level 8.6 Current Medications Medications (Trade) Dose Ordered Sig/Dagmar Route PRN Reason Start Time Stop Time Status Last Admin Dose Admin Acetaminophen (Tylenol) 650 mg Q4H PRN ORAL Mild Pain (Pain Scale 1-3) 04/22/20 19:30 05/22/20 19:29 04/28/20 17:34 Acetaminophen (Tylenol) 650 mg Q4H PRN ORAL Temp >100.5 04/24/20 17:30 05/24/20 17:29 Albuterol Sulfate (Proventil MDI) 2 puff Q4H PRN INH Shortness of Breath 04/23/20 09:00 07/22/20 08:59 Ascorbic Acid (Vitamin C) 500 mg TWICE A DAY ORAL 04/23/20 09:00 05/23/20 08:59 04/30/20 17:29 Diphenhydramine HCl (Benadryl) 25 mg Q6H PRN IVP Itching 04/22/20 19:30 05/22/20 19:29 04/29/20 13:57 Enoxaparin Sodium (Lovenox) 40 mg DAILY SUBQ 04/23/20 09:00 07/22/20 08:59 04/30/20 09:48 Loperamide HCl (Imodium) 2 mg Q6H PRN NG Diarrhea 04/23/20 09:00 05/23/20 08:59 Ondansetron HCl (Zofran) 4 mg Q6H PRN IVP Nausea & Vomiting 04/22/20 19:30 05/22/20 19:29 Pantoprazole (Protonix) 40 mg EVERY 12 HOURS ORAL 04/23/20 21:00 05/23/20 20:59 04/30/20 20:45 Tamsulosin HCl (Flomax) 0.4 mg BID ORAL 04/23/20 09:00 05/23/20 08:59 04/30/20 17:29 Zinc Sulfate (Zinc Sulfate) 220 mg DAILY ORAL 04/23/20 09:00 07/22/20 08:59 04/30/20 09:46 Assessment/Plan Assessment/Plan ASSESSMENT COVID 19 PNA ARF possibly on CKD Diarrhea Generalized weakness Cocaine abuse Homeless PLAN OF CARE MS floor isolation day #9 supplemetnal O2 to keep sat >90% Albuterol MDI prn was on abx per ID recs-> Ceftriaxone ( completed 04/30) and Azithromycin completed 04/28 hold steroids and Remdesivir given pulse ox stable on RA fup CXR 04/29-> slight worsening of mild to moderate diffuse left lung pneumonia with unchanged mild diffuse right lung pneumonia. resp status however remains stable, on RA, no SOB, no distress, no fevers, monitor closely will repeat CXR in am and CBC a/c with Lovenox Venous Duplex BLE check IL-6 -49.5 inflammatory markers not quite impressive to show risk for cytokine storm: ferritin 456->414->411 -> 443 CRP 3.8 ->3.5->2.2 ->1.0 LDH 252, D dimer 2.06 vit C and zinc BCX 04/22 NGTD off IVF, renal US monitor renal parameters, lytes, correct lytes as needed avoid nephrotoxics nephro follows creat trending down diarrhea improved with Imodium stool C dif if diarrhea persist consider Lactobacillus HIV nonreactive urine tox + cocaine financial counselor on abstinence from illicit street drug supportive care discussed 04/28 with CM plan for dc pt needs placement to continue isolation for total of 10 days, now does not qualify since 10 days tomorrow SW seen and evaluated provided with a list of community resources plan dc for am if stable case discussed and evaluated by supervising physician Edison Wing MD 05/01/20 6351: Subjective Allergies: Coded Allergies: No Known Allergies (Unverified , 03/17/15) Assessment/Plan Assessment/Plan Patient seen and examined with ELECTRONIC MASKING SYSTEM OPERATOR. Agree with above A&P as it reflects our joint deliberations. Ana Keller NP May 01, 2020 09:22 Edison Wing MD May 01, 2020 17:29
[2020-05-01] MEDS: Ascorbic Acid 500mg tab ORAL SCH ×2 (09:54→17:36)
[2020-05-01] MEDS: Zinc Sulfate 220mg ORAL SCH (09:55)
[2020-05-01] MEDS: Tamsulosin 0.4mg cap ORAL SCH ×2 (09:55→17:36)
[2020-05-01] MEDS: Enoxaparin 40mg Inj SUBQ SCH (09:56)
--- NOTE | 2020-05-01 10:14 | Nephrology Progress Note ---
Assessment/Plan Problem List: (1) MALCOM (acute kidney injury) (2) COVID-19 (3) Diarrhea (4) Cocaine abuse Assessment Acute renal failure, possible underlying chronic kidney failure Dehydration COVID-19 infection Lower lung patchy infiltrate Diarrhea Cocaine use Mild anemia Plan May 01: Labs reviewed. Creatinine up to 1.5. Continue to monitor renal parameters. Continue per consultants. April 30: No labs drawn today. Remains stable from renal standpoint of view. Continue per consultants. April 29: Serum creatinine 1.4. Stable from renal standpoint of view. Continue per consultants. April 28: Renal parameters stable. Blood pressure is stable. No renal issues. Continue per consultants. April 27: Serum creatinine 1.4. Stable blood pressure. Stable from renal standpoint of view. April 26: Serum creatinine now 1.3 normal. Blood pressure stable. Stable from renal standpoint of view. April 25: Serum creatinine 1.4. Blood pressure stable. Medication list reviewed. Stable from renal standpoint of view. April 24: Serum creatinine is down to 1.5. Urine positive for cocaine. Continue per consultants. April 23: Stop ibuprofen IV fluids Avoid nephrotoxic's Monitor renal parameters Per consultants / ID HIV screen Subjective ROS Limited/Unobtainable: No Constitutional: Reports: malaise Objective Objective Last 24 Hour Vital Signs Date Time Temp Pulse Resp B/P (MAP) Pulse Ox O2 Delivery O2 Flow Rate FiO2 05/01/20 08:00 97.6 72 19 134/70 (91) 95 05/01/20 04:00 97.9 68 18 136/68 (90) 92 05/01/20 00:00 98.2 60 20 135/74 (94) 96 04/30/20 21:00 Room Air 04/30/20 20:00 97.4 67 19 141/73 (95) 94 04/30/20 16:00 98.1 68 20 140/78 (98) 98 04/30/20 12:00 98.2 65 20 142/80 (100) 97 Intake and Output 04/30/20 05/01/20 19:00 07:00 Intake Total 1460 ml Output Total 650 ml Balance 1460 ml -650 ml Intake Oral 1460 ml Output Urine Total 650 ml # Voids 6 1 # Bowel Movements 1 1 Laboratory Tests 05/01/20 07:30: White Blood Count 12.1H, Red Blood Count 4.43L, Hemoglobin 13.2L, Hematocrit 39.2L, Mean Corpuscular Volume 89, Mean Corpuscular Hemoglobin 29.9, Mean Corpuscular Hemoglobin Concent 33.7, Red Cell Distribution Width 12.1, Platelet Count 360, Mean Platelet Volume 6.8, Neutrophils (%) (Auto) 69.1, Lymphocytes (% ) (Auto) 22.0, Monocytes (%) (Auto) 7.4, Eosinophils (%) (Auto) 0.6, Basophils ( %) (Auto) 1.0, Sodium Level 138, Potassium Level 4.2, Chloride Level 105, Carbon Dioxide Level 26, Anion Gap 8, Blood Urea Nitrogen 23H, Creatinine 1.5H, Estimat Glomerular Filtration Rate 56.7, Glucose Level 89, Calcium Level 8.6 Height (Feet): 5 Height (Inches): 11.00 Weight (Pounds): 155 General Appearance: no apparent distress Respiratory/Chest: decreased breath sounds Objective No change Nelson Dalal MD May 01, 2020 10:14
--- NOTE | 2020-05-01 11:17 | Surgery Progress Note ---
Surgery Progress Note Subjective Additional Comments leukocytosis bun/cr elevated tolerating diet +BM Objective Last 24 Hour Vital Signs Date Time Temp Pulse Resp B/P (MAP) Pulse Ox O2 Delivery O2 Flow Rate FiO2 05/01/20 08:00 97.6 72 19 134/70 (91) 95 05/01/20 04:00 97.9 68 18 136/68 (90) 92 05/01/20 00:00 98.2 60 20 135/74 (94) 96 04/30/20 21:00 Room Air 04/30/20 20:00 97.4 67 19 141/73 (95) 94 04/30/20 16:00 98.1 68 20 140/78 (98) 98 04/30/20 12:00 98.2 65 20 142/80 (100) 97 I&O Intake and Output 04/30/20 05/01/20 19:00 07:00 Intake Total 1460 ml Output Total 650 ml Balance 1460 ml -650 ml Intake Oral 1460 ml Output Urine Total 650 ml # Voids 6 1 # Bowel Movements 1 1 Dressing: other Wound: other Cardiovascular: RSR Respiratory: decreased breath sounds Abdomen: soft, non-tender, present bowel sounds Extremities: no tenderness, no cyanosis Laboratory Tests Test 05/01/20 07:30 White Blood Count 12.1 K/UL (4.8-10.8) H Red Blood Count 4.43 M/UL (4.70-6.10) L Hemoglobin 13.2 G/DL (14.2-18.0) L Hematocrit 39.2 % (42.0-52.0) L Mean Corpuscular Volume 89 FL (80-99) Mean Corpuscular Hemoglobin 29.9 PG (27.0-31.0) Mean Corpuscular Hemoglobin Concent 33.7 G/DL (32.0-36.0) Red Cell Distribution Width 12.1 % (11.6-14.8) Platelet Count 360 K/UL (150-450) Mean Platelet Volume 6.8 FL (6.5-10.1) Neutrophils (%) (Auto) 69.1 % (45.0-75.0) Lymphocytes (%) (Auto) 22.0 % (20.0-45.0) Monocytes (%) (Auto) 7.4 % (1.0-10.0) Eosinophils (%) (Auto) 0.6 % (0.0-3.0) Basophils (%) (Auto) 1.0 % (0.0-2.0) Sodium Level 138 MMOL/L (136-145) Potassium Level 4.2 MMOL/L (3.5-5.1) Chloride Level 105 MMOL/L (98-107) Carbon Dioxide Level 26 MMOL/L (21-32) Anion Gap 8 mmol/L (5-15) Blood Urea Nitrogen 23 mg/dL (7-18) H Creatinine 1.5 MG/DL (0.55-1.30) H Estimat Glomerular Filtration Rate 56.7 mL/min (>60) Glucose Level 89 MG/DL (74-106) Calcium Level 8.6 MG/DL (8.5-10.1) Plan Problems: (1) ARF (acute renal failure) (2) Episode of generalized weakness (3) Cocaine abuse (4) Diarrhea Assessment & Plan: 64M diarrhea improving okay for diet exam stable no acute surgical intervention at this time kub ordered thank you responded well to Imodium comfortable no complaints no n/v/f/c states feels well trend labs iv fluids (5) COVID-19 Assessment & Plan: + appreciate ID input improving (6) Dental abscess (7) Dental abscess (8) Hernia (9) MALCOM (acute kidney injury) Jose Delgadillo May 01, 2020 11:17
[2020-05-01 12:00] VITALS: BP 129/76
[2020-05-01 16:00] VITALS: BP 131/80
[2020-05-01 20:00] VITALS: BP 120/71
[2020-05-02] VITALS: BP 143/66
[2020-05-02 04:00] VITALS: BP 135/75
[2020-05-02 06:15] LABS: BASOPHILS % (AUTO) 1.2 % (0.0-2.0); EOSINOPHILS % (AUTO) 0.6 % (0.0-3.0); HEMATOCRIT 36.4 % (42.0-52.0); HEMOGLOBIN 12.2 G/DL (14.2-18.0); LYMPHOCYTES % (AUTO) 24.2 % (20.0-45.0); MEAN CORPUSCULAR VOLUME 89 FL (80-99); MONOCYTES % (AUTO) 8.7 % (1.0-10.0); NEUTROPHILS % (AUTO) 65.3 % (45.0-75.0); PLATELET COUNT 321 K/UL (150-450); RED BLOOD COUNT 4.08 M/UL (4.70-6.10); RED CELL DISTRIBUTION WIDTH 11.9 % (11.6-14.8)
--- NOTE | 2020-05-02 06:40 | General Progress Note ---
Assessment/Plan Problem List: (1) Cocaine abuse ICD Codes: F14.10 - Cocaine abuse, uncomplicated SNOMED: 38107652 (2) COVID-19 ICD Codes: U07.1 - COVID-19 SNOMED: 192281879 (3) Diarrhea ICD Codes: R19.7 - Diarrhea, unspecified SNOMED: 39308336 Qualifiers: Qualified Codes: R19.7 - Diarrhea, unspecified Assessment/Plan: pulm care good response to Imodium fu labs on reg diet dc planning per primary team Subjective ROS Limited/Unobtainable: Yes Allergies: Coded Allergies: No Known Allergies (Unverified , 03/17/15) Objective Last 24 Hour Vital Signs Date Time Temp Pulse Resp B/P (MAP) Pulse Ox O2 Delivery O2 Flow Rate FiO2 05/02/20 04:00 98.4 63 18 135/75 (95) 95 05/02/20 00:00 98.1 74 18 143/66 (91) 95 05/01/20 21:00 Room Air 05/01/20 20:00 98.1 65 18 120/71 (87) 93 05/01/20 16:00 98.3 69 20 131/80 (97) 96 05/01/20 12:00 98.1 63 19 129/76 (93) 94 05/01/20 09:00 Room Air 05/01/20 08:00 97.6 72 19 134/70 (91) 95 Intake and Output 05/01/20 05/02/20 19:00 07:00 Intake Total 400 ml Balance 400 ml Other 400 ml # Voids 3 # Bowel Movements 1 Laboratory Tests 05/01/20 07:30: White Blood Count 12.1H, Red Blood Count 4.43L, Hemoglobin 13.2L, Hematocrit 39.2L, Mean Corpuscular Volume 89, Mean Corpuscular Hemoglobin 29.9, Mean Corpuscular Hemoglobin Concent 33.7, Red Cell Distribution Width 12.1, Platelet Count 360, Mean Platelet Volume 6.8, Neutrophils (%) (Auto) 69.1, Lymphocytes (% ) (Auto) 22.0, Monocytes (%) (Auto) 7.4, Eosinophils (%) (Auto) 0.6, Basophils ( %) (Auto) 1.0, Sodium Level 138, Potassium Level 4.2, Chloride Level 105, Carbon Dioxide Level 26, Anion Gap 8, Blood Urea Nitrogen 23H, Creatinine 1.5H, Estimat Glomerular Filtration Rate 56.7, Glucose Level 89, Calcium Level 8.6 05/02/20 04:00: White Blood Count 11.0H, Red Blood Count 4.08L, Hemoglobin 12.2L, Hematocrit 36.4L, Mean Corpuscular Volume 89, Mean Corpuscular Hemoglobin 29.8, Mean Corpuscular Hemoglobin Concent 33.4, Red Cell Distribution Width 11.9, Platelet Count 321, Mean Platelet Volume 6.3L, Neutrophils (%) (Auto) 65.3, Lymphocytes ( %) (Auto) 24.2, Monocytes (%) (Auto) 8.7, Eosinophils (%) (Auto) 0.6, Basophils (%) (Auto) 1.2, Sodium Level [Pending], Potassium Level [Pending], Chloride Level [Pending], Carbon Dioxide Level [Pending], Blood Urea Nitrogen [Pending], Creatinine [Pending], Estimat Glomerular Filtration Rate [Pending], Glucose Level [Pending], Calcium Level [Pending], Phosphorus Level [Pending], Magnesium Level [Pending], Total Bilirubin [Pending], Aspartate Amino Transf (AST/SGOT) [ Pending], Alanine Aminotransferase (ALT/SGPT) [Pending], Alkaline Phosphatase [ Pending], Total Protein [Pending], Albumin [Pending], Globulin [Pending] Height (Feet): 5 Height (Inches): 11.00 Weight (Pounds): 155 General Appearance: alert EENT: normal ENT inspection Neck: supple Cardiovascular: normal rate Respiratory/Chest: decreased breath sounds Abdomen: normal bowel sounds, non tender, soft Extremities: non-tender Pramod Torres MD May 02, 2020 06:40
[2020-05-02 06:47] LABS: ALANINE AMINOTRANSFERASE 71 U/L (12-78); ALBUMIN 2.3 G/DL (3.4-5.0); ALBUMIN/GLOBULIN RATIO 0.5 (1.0-2.7); ALKALINE PHOSPHATASE 125 U/L (46-116); ANION GAP 8 mmol/L (5-15); ASPARTATE AMINO TRANSFERASE 49 U/L (15-37); BILIRUBIN,TOTAL 0.4 MG/DL (0.2-1.0); BLOOD UREA NITROGEN 22 mg/dL (7-18); CALCIUM 8.4 MG/DL (8.5-10.1); CARBON DIOXIDE 25 MMOL/L (21-32); CHLORIDE 105 MMOL/L (98-107); CREATININE 1.4 MG/DL (0.55-1.30); PHOSPHORUS 4.3 MG/DL (2.5-4.9); POTASSIUM 4.2 MMOL/L (3.5-5.1); SODIUM 138 MMOL/L (136-145)
[2020-05-02 08:00] VITALS: BP 130/69
[2020-05-02] MEDS: Zinc Sulfate 220mg ORAL SCH (09:06)
[2020-05-02] MEDS: Ascorbic Acid 500mg tab ORAL SCH (09:06)
[2020-05-02] MEDS: Tamsulosin 0.4mg cap ORAL SCH (09:06)
[2020-05-02] MEDS: Enoxaparin 40mg Inj SUBQ SCH (09:08)
--- NOTE | 2020-05-02 09:53 | Pulmonology Progress Note ---
Ana Keller CHIEF STEWARD/STEWARDESS 05/02/20 0952: Subjective ROS Limited/Unobtainable: Yes Gastrointestinal/Abdominal: Reports: nausea Psychiatric: Reports: depression Allergies: Coded Allergies: No Known Allergies (Unverified , 03/17/15) Subjective day #10 isolation remains afebrile, mild leukocytosis no signs of resp distress pulse ox remains stable on RA no f fevers denies SOB, CP, malaise denies CP, SOB , palpitations no cough, no congestion, no sore throat CXR 04/29-> slight worsening of mild to moderate diffuse left lung pneumonia with unchanged mild diffuse right lung pneumonia. Objective Last 24 Hour Vital Signs Date Time Temp Pulse Resp B/P (MAP) Pulse Ox O2 Delivery O2 Flow Rate FiO2 05/02/20 08:00 98.6 65 18 130/69 (89) 95 05/02/20 04:00 98.4 63 18 135/75 (95) 95 05/02/20 00:00 98.1 74 18 143/66 (91) 95 05/01/20 21:00 Room Air 05/01/20 20:00 98.1 65 18 120/71 (87) 93 05/01/20 16:00 98.3 69 20 131/80 (97) 96 05/01/20 12:00 98.1 63 19 129/76 (93) 94 Intake and Output 05/01/20 05/02/20 19:00 07:00 Intake Total 400 ml Balance 400 ml Other 400 ml # Voids 3 # Bowel Movements 1 Objective General Appearance: no apparent distress, alert Lines, tubes and drains: peripheral HEENT: normocephalic, atraumatic, anicteric, mucous membranes moist Neck: supple Respiratory/Chest: chest wall non-tender, lungs clear, no respiratory distress , no accessory muscle use Cardiovascular/Chest: normal rate Abdomen: normal bowel sounds, non tender, soft Extremities: normal range of motion, no calf tenderness, normal capillary refill Skin Exam: normal pigmentation, warm/dry Neurologic: no motor/sensory deficits, alert, responsive Musculoskeletal: normal muscle bulk Laboratory Tests 05/02/20 04:00: White Blood Count 11.0H, Red Blood Count 4.08L, Hemoglobin 12.2L, Hematocrit 36.4L, Mean Corpuscular Volume 89, Mean Corpuscular Hemoglobin 29.8, Mean Corpuscular Hemoglobin Concent 33.4, Red Cell Distribution Width 11.9, Platelet Count 321, Mean Platelet Volume 6.3L, Neutrophils (%) (Auto) 65.3, Lymphocytes ( %) (Auto) 24.2, Monocytes (%) (Auto) 8.7, Eosinophils (%) (Auto) 0.6, Basophils (%) (Auto) 1.2, Sodium Level 138, Potassium Level 4.2, Chloride Level 105, Carbon Dioxide Level 25, Anion Gap 8, Blood Urea Nitrogen 22H, Creatinine 1.4H, Estimat Glomerular Filtration Rate > 60, Glucose Level 95, Calcium Level 8.4L, Phosphorus Level 4.3, Magnesium Level 1.8, Total Bilirubin 0.4, Aspartate Amino Transf (AST/SGOT) 49H, Alanine Aminotransferase (ALT/SGPT) 71, Alkaline Phosphatase 125H, Total Protein 6.6, Albumin 2.3L, Globulin 4.3, Albumin/ Globulin Ratio 0.5L Current Medications Medications (Trade) Dose Ordered Sig/Dagmar Route PRN Reason Start Time Stop Time Status Last Admin Dose Admin Acetaminophen (Tylenol) 650 mg Q4H PRN ORAL Mild Pain (Pain Scale 1-3) 04/22/20 19:30 05/22/20 19:29 04/28/20 17:34 Acetaminophen (Tylenol) 650 mg Q4H PRN ORAL Temp >100.5 04/24/20 17:30 05/24/20 17:29 Albuterol Sulfate (Proventil MDI) 2 puff Q4H PRN INH Shortness of Breath 04/23/20 09:00 07/22/20 08:59 Ascorbic Acid (Vitamin C) 500 mg TWICE A DAY ORAL 04/23/20 09:00 05/23/20 08:59 05/02/20 09:06 Diphenhydramine HCl (Benadryl) 25 mg Q6H PRN IVP Itching 04/22/20 19:30 05/22/20 19:29 04/29/20 13:57 Enoxaparin Sodium (Lovenox) 40 mg DAILY SUBQ 04/23/20 09:00 07/22/20 08:59 05/02/20 09:08 Loperamide HCl (Imodium) 2 mg Q6H PRN NG Diarrhea 04/23/20 09:00 05/23/20 08:59 Ondansetron HCl (Zofran) 4 mg Q6H PRN IVP Nausea & Vomiting 04/22/20 19:30 05/22/20 19:29 Pantoprazole (Protonix) 40 mg EVERY 12 HOURS ORAL 04/23/20 21:00 05/23/20 20:59 05/02/20 09:06 Tamsulosin HCl (Flomax) 0.4 mg BID ORAL 04/23/20 09:00 05/23/20 08:59 05/02/20 09:06 Zinc Sulfate (Zinc Sulfate) 220 mg DAILY ORAL 04/23/20 09:00 07/22/20 08:59 05/02/20 09:06 Assessment/Plan Assessment/Plan ASSESSMENT COVID 19 PNA ARF possibly on CKD Diarrhea Generalized weakness Cocaine abuse Homeless PLAN OF CARE MS floor isolation day #9 supplemetnal O2 to keep sat >90% Albuterol MDI prn was on abx per ID recs-> Ceftriaxone ( completed 04/30) and Azithromycin completed 04/28 hold steroids and Remdesivir given pulse ox stable on RA fup CXR 04/29-> slight worsening of mild to moderate diffuse left lung pneumonia with unchanged mild diffuse right lung pneumonia. resp status however remains stable, on RA, no SOB, no distress, no fevers, monitor closely will repeat CXR in am and CBC a/c with Lovenox Venous Duplex BLE check IL-6 -49.5 inflammatory markers not quite impressive to show risk for cytokine storm: ferritin 456->414->411 -> 443 CRP 3.8 ->3.5->2.2 ->1.0 LDH 252, D dimer 2.06 vit C and zinc BCX 04/22 NGTD off IVF, renal US monitor renal parameters, lytes, correct lytes as needed avoid nephrotoxics nephro follows creat trending down diarrhea improved with Imodium stool C dif if diarrhea persist consider Lactobacillus HIV nonreactive urine tox + cocaine counseling center director on abstinence from illicit street drug supportive care discussed 04/28 with CM plan for dc pt needs placement to continue isolation for total of 10 days, now does not qualify since 10 days tomorrow SW seen and evaluated provided with a list of community resources dc today , discussed with ID doctor, he cleared for dc but need clearance from ID department in the hospital prior to dc case discussed and evaluated by supervising physician Edison Wing MD 05/02/20 1800: Subjective Allergies: Coded Allergies: No Known Allergies (Unverified , 03/17/15) Assessment/Plan Assessment/Plan Patient seen and examined with CHIEF STEWARD/STEWARDESS. Agree with above A&P as it reflects our joint deliberations. Ana Keller NP May 02, 2020 09:52 Edison Wing MD May 02, 2020 18:00
--- NOTE | 2020-05-02 11:34 | Diagnostic Imaging Report ---
Indication: Shortness of breath Technique: One view of the chest Comparison: 04/29/2020 Findings: Bilateral infiltrates have improved but persists. The heart size is normal. The pleural spaces are clear. Impression: Improving but persistent bilateral infiltrates
--- NOTE | 2020-05-02 15:46 | Nephrology Progress Note ---
Assessment/Plan Problem List: (1) MALCOM (acute kidney injury) (2) COVID-19 (3) Diarrhea (4) Cocaine abuse Assessment Acute renal failure, possible underlying chronic kidney failure Dehydration COVID-19 infection Lower lung patchy infiltrate Diarrhea Cocaine use Mild anemia Plan May 02: Late note entry. Patient seen in the morning prior to discharge. Labs reviewed. Serum creatinine down to 1.4. Stable from renal standpoint of view. May 01: Labs reviewed. Creatinine up to 1.5. Continue to monitor renal parameters. Continue per consultants. April 30: No labs drawn today. Remains stable from renal standpoint of view. Continue per consultants. April 29: Serum creatinine 1.4. Stable from renal standpoint of view. Continue per consultants. April 28: Renal parameters stable. Blood pressure is stable. No renal issues. Continue per consultants. April 27: Serum creatinine 1.4. Stable blood pressure. Stable from renal standpoint of view. April 26: Serum creatinine now 1.3 normal. Blood pressure stable. Stable from renal standpoint of view. April 25: Serum creatinine 1.4. Blood pressure stable. Medication list reviewed. Stable from renal standpoint of view. April 24: Serum creatinine is down to 1.5. Urine positive for cocaine. Continue per consultants. April 23: Stop ibuprofen IV fluids Avoid nephrotoxic's Monitor renal parameters Per consultants / ID HIV screen Subjective ROS Limited/Unobtainable: No Objective Objective Last 24 Hour Vital Signs Date Time Temp Pulse Resp B/P (MAP) Pulse Ox O2 Delivery O2 Flow Rate FiO2 05/02/20 09:00 Room Air 05/02/20 08:00 98.6 65 18 130/69 (89) 95 05/02/20 04:00 98.4 63 18 135/75 (95) 95 05/02/20 00:00 98.1 74 18 143/66 (91) 95 05/01/20 21:00 Room Air 05/01/20 20:00 98.1 65 18 120/71 (87) 93 05/01/20 16:00 98.3 69 20 131/80 (97) 96 Intake and Output 05/01/20 05/02/20 19:00 07:00 Intake Total 400 ml Balance 400 ml Other 400 ml # Voids 3 # Bowel Movements 1 Laboratory Tests 05/02/20 04:00: White Blood Count 11.0H, Red Blood Count 4.08L, Hemoglobin 12.2L, Hematocrit 36.4L, Mean Corpuscular Volume 89, Mean Corpuscular Hemoglobin 29.8, Mean Corpuscular Hemoglobin Concent 33.4, Red Cell Distribution Width 11.9, Platelet Count 321, Mean Platelet Volume 6.3L, Neutrophils (%) (Auto) 65.3, Lymphocytes ( %) (Auto) 24.2, Monocytes (%) (Auto) 8.7, Eosinophils (%) (Auto) 0.6, Basophils (%) (Auto) 1.2, Sodium Level 138, Potassium Level 4.2, Chloride Level 105, Carbon Dioxide Level 25, Anion Gap 8, Blood Urea Nitrogen 22H, Creatinine 1.4H, Estimat Glomerular Filtration Rate > 60, Glucose Level 95, Calcium Level 8.4L, Phosphorus Level 4.3, Magnesium Level 1.8, Total Bilirubin 0.4, Aspartate Amino Transf (AST/SGOT) 49H, Alanine Aminotransferase (ALT/SGPT) 71, Alkaline Phosphatase 125H, Total Protein 6.6, Albumin 2.3L, Globulin 4.3, Albumin/ Globulin Ratio 0.5L Height (Feet): 5 Height (Inches): 11.00 Weight (Pounds): 156 General Appearance: no apparent distress Objective No change Nelson Dalal MD May 02, 2020 15:46
--- NOTE | 2020-05-02 17:04 | Surgery Progress Note ---
Surgery Progress Note Subjective Additional Comments late entry as patient seen earlier. no n/v/fc improving' labs improved plan d/c today okay from surgical standpoint tolerating +bowel function Objective Last 24 Hour Vital Signs Date Time Temp Pulse Resp B/P (MAP) Pulse Ox O2 Delivery O2 Flow Rate FiO2 05/02/20 09:00 Room Air 05/02/20 08:00 98.6 65 18 130/69 (89) 95 05/02/20 04:00 98.4 63 18 135/75 (95) 95 05/02/20 00:00 98.1 74 18 143/66 (91) 95 05/01/20 21:00 Room Air 05/01/20 20:00 98.1 65 18 120/71 (87) 93 I&O Intake and Output 05/01/20 05/02/20 19:00 07:00 Intake Total 400 ml Balance 400 ml Other 400 ml # Voids 3 # Bowel Movements 1 Cardiovascular: RSR Respiratory: clear Abdomen: soft, flat, non-tender, present bowel sounds Extremities: no edema, no tenderness, no cyanosis Laboratory Tests Test 05/02/20 04:00 White Blood Count 11.0 K/UL (4.8-10.8) H Red Blood Count 4.08 M/UL (4.70-6.10) L Hemoglobin 12.2 G/DL (14.2-18.0) L Hematocrit 36.4 % (42.0-52.0) L Mean Corpuscular Volume 89 FL (80-99) Mean Corpuscular Hemoglobin 29.8 PG (27.0-31.0) Mean Corpuscular Hemoglobin Concent 33.4 G/DL (32.0-36.0) Red Cell Distribution Width 11.9 % (11.6-14.8) Platelet Count 321 K/UL (150-450) Mean Platelet Volume 6.3 FL (6.5-10.1) L Neutrophils (%) (Auto) 65.3 % (45.0-75.0) Lymphocytes (%) (Auto) 24.2 % (20.0-45.0) Monocytes (%) (Auto) 8.7 % (1.0-10.0) Eosinophils (%) (Auto) 0.6 % (0.0-3.0) Basophils (%) (Auto) 1.2 % (0.0-2.0) Sodium Level 138 MMOL/L (136-145) Potassium Level 4.2 MMOL/L (3.5-5.1) Chloride Level 105 MMOL/L (98-107) Carbon Dioxide Level 25 MMOL/L (21-32) Anion Gap 8 mmol/L (5-15) Blood Urea Nitrogen 22 mg/dL (7-18) H Creatinine 1.4 MG/DL (0.55-1.30) H Estimat Glomerular Filtration Rate > 60 mL/min (>60) Glucose Level 95 MG/DL (74-106) Calcium Level 8.4 MG/DL (8.5-10.1) L Phosphorus Level 4.3 MG/DL (2.5-4.9) Magnesium Level 1.8 MG/DL (1.8-2.4) Total Bilirubin 0.4 MG/DL (0.2-1.0) Aspartate Amino Transf (AST/SGOT) 49 U/L (15-37) H Alanine Aminotransferase (ALT/SGPT) 71 U/L (12-78) Alkaline Phosphatase 125 U/L (46-116) H Total Protein 6.6 G/DL (6.4-8.2) Albumin 2.3 G/DL (3.4-5.0) L Globulin 4.3 g/dL Albumin/Globulin Ratio 0.5 (1.0-2.7) L Plan Problems: (1) ARF (acute renal failure) (2) Episode of generalized weakness (3) Cocaine abuse (4) Diarrhea Assessment & Plan: 64M diarrhea improving okay for diet exam stable no acute surgical intervention at this time kub ordered thank you responded well to Imodium comfortable no complaints no n/v/f/c states feels well trend labs iv fluids (5) COVID-19 Assessment & Plan: + appreciate ID input improving (6) Dental abscess (7) Dental abscess (8) Hernia (9) MALCOM (acute kidney injury) Jose Delgadillo May 02, 2020 17:04
--- NOTE | 2020-05-05 11:45 | Discharge Summary ---
Discharge Summary Discharge Summary _ DATE OF ADMISSION: 04/22/2020 DATE OF DISCHARGE: 05/02/2020 DISCHARGED BY: Dr. Wing REASON FOR ADMISSION: 64 years old male with no significant past medical history ,presented to emergency department for evaluation he was found to rapid COVID-19 was positive. Chest x-ray revealed patchy infiltrate more apparent in the lower lung wright. Pulse oximetry was 94% on room air. Laboratory work-up revealed evidence of acute renal failure BUN 23, creatinine 1.7. Stable electrolytes. Lactic acid 1.1. Stable LFT and lipase. ESR 40, d-dimer 2.06. Urinalysis revealed no evidence of urinary tract infection, +1 protein. Patient received a liter of fluid empiric azithromycin and ceftriaxone admitted for further management. CONSULTANTS: front end engineer neurologist pulmonary ID specialist Dr. Hugo GI specialist Dr. Torres multi share program coordinator ap operator/oncologist surgery Dr. Delgadillo psychiatrist HOSPITAL COURSE: Patient admitted to isolation room to medical surgical floor. Supplemental oxygen was on board as needed to keep pulse oximetry above 92%. Albuterol via MDI provided as needed. Antibiotic for hold given no respiratory symptoms chest x-ray changes were likely due to COVID infection. No steroids are indicated given no given patient being on room air not hypoxic. Patient was follow-up with a chest x-ray patient started on a supplement vitamin C and zinc. DVT prophylaxis provided. Venous duplex bilateral lower extremity revealed no evidence of acute DVT. Patient was follow-up with inflammatory markers to assess the risk for cytokine storm. Patient sustained 10 days of the isolation. Patient was on ceftriaxone and azithromycin as per ID recommendation. Steroids and the severe were hold given stable pulse oximetry on room air. Patient was follow-up with a chest x-ray revealed slight worsening of the mild to moderate diffuse respiratory status remained stable patient continued to be on room air without shortness of breath without signs of respiratory distress no fevers. Anticoagulation with the Lovenox provided. IL-6 49.5. Ferritin trending down CRP trended down to 1.0 LDH 252 d-dimer 2.06. Renal parameters electrolytes were closely monitored electrolytes corrected as needed nephrotoxic's were avoided with IV hydration BUN down to 22 and creatinine down to 1.4 from 1.7. Nephrotoxic's were avoided all electrolytes corrected as needed. Diarrhea improved with Imodium lactobacillus started. HIV test was nonreactive urine toxicology screen was positive for cocaine patient was counseled on abstinence from illicit street drugs. Supportive care provided. Patient will patient was discharged after being 10 days and isolation. The treating physician had assessed and agreed that patient was medically stable for discharge to an outpatient disposition.m patient remained afebrile no leukocytosis afebrile Per general surgeon no acute surgical intervention was required at this time KUB FINAL DIAGNOSES: 1. [] COVID-19 pneumonia Acute renal failure, possibly on chronic kidney disease Diarrhea resolved Cocaine use Generalized weakness Homeless DISCHARGE MEDICATIONS: See Medication Reconciliation list. DISCHARGE INSTRUCTIONS: [] Patient was discharged to outside disposition. Follow-up with a primary care provider in 1 to 2 weeks. Patient was I have been assigned to dictate discharge summary for this account. I was not involved in the patient's management. Ana Keller NP May 05, 2020 11:45
== END 2020-05-02 12:30 | disposition home or self-care (01) | DRG 177 ==
LOC: EMR 15:07 → 4E 17:18 → EDBEDREQ 17:24 → 4E 04-23 14:43
DX: U07.1 COVID-19 (principal); J12.89 Other viral pneumonia; N17.9 Acute kidney failure, unspecified; F14.10 Cocaine abuse, uncomplicated; E86.0 Dehydration; K04.7 Periapical abscess without sinus; D64.9 Anemia, unspecified; K46.9 Unspecified abdominal hernia without obstruction or gangrene; Z59.0 Homelessness; N18.9 Chronic kidney disease, unspecified; R53.1 Weakness
CPT/HCPCS: 36415; 71045; 80048; 80053; 80061; 80076; 80307; 81003; 82308; 82550; 82570; 82728; 82746; 82977; 83036; 83520; 83540; 83550; 83605; 83615; 83690; 83735; 83880; 84100; 84300; 84443; 84550; 85025; 85379; 85610; 85651; 85730; 86140; 86703; 87040; 93005; 96361; 96365; 96367; 99285; J7030; U0002